=== PATIENT | female | born 1930 | race African-American/Black ===

== ENCOUNTER 2016-06-02 13:28 | Inpatient (IN) ==
[2016-06-02 14:05] LABS: BASOPHILS % (AUTO) 0.7 % (0.0-3.0); EOSINOPHILS # (AUTO) 0.2 K/ul (0.0-0.7); EOSINOPHILS % (AUTO) 3.6 % (0.0-7.0); HEMATOCRIT 36.8 % (37.0-47.0); HEMOGLOBIN 12.2 g/dl (12.0-16.0); LYMPHOCYTES # (AUTO) 1.1 K/uL (0.60-3.4); LYMPHOCYTES % (AUTO) 25.4 (10.0-50.0); MEAN CORPUSCULAR HEMOGLOBIN 29.2 pg (27.0-31.0); MEAN CORPUSCULAR HGB CONC 33.2 (31.8-35.4); MONOCYTES # (AUTO) 0.3 K/uL (0.4-2.0); MONOCYTES % (AUTO) 6.9 (0-10); NEUTROPHILS # (AUTO) 2.7 K/ul (2.0-6.9); NEUTROPHILS % (AUTO) 63.4; PLATELET COUNT 258 10^3/uL (140-440); RED BLOOD COUNT 4.18 10^6/ul (4.20-5.40); WHITE BLOOD COUNT 4.22 K/ul (4.6-10.2)
--- NOTE | 2016-06-02 14:35 | CT ---
EXAM: CT head without contrast HISTORY: Right-sided weakness and dysarthria COMPARISON: CT soft tissue neck 06/13/2014 TECHNIQUE: Serial axial images of the brain were obtained from the skull base to the vertex without IV contrast. FINDINGS: The ventricles, cisterns and sulci demonstrate moderate generalized volume loss. The gra y-white matter junction is maintained. There is scattered low attenuation throughout the periventri cular white matter. No midline shift or mass is identified. There is no abnormal intra or extra-ax ial fluid collection. The paranasal sinuses and mastoid air cells are clear. There are calcificatio ns of the carotid siphons. The osseous calvarium is intact. IMPRESSION: 1. No acute intracranial hemorrhage with no focal loss of the [place]-white matter junction. If furth er evaluation is clinically indicated, MRI brain may be obtained. 2. Scattered low attenuation throughout the periventricular white matter consistent with microangio michael with a focal area of low attenuation in the left basal ganglia seen on prior CT soft tissue ne ck consistent with the chronic lacunar infarct.
[2016-06-02 14:41] LABS: ALBUMIN 3.9 g/dL (3.4-5.0); ALBUMIN/GLOBULIN RATIO 1.18; ANION GAP 14.7; BILIRUBIN,TOTAL 0.87 mg/dL (0.00-1.20); BUN/CREATININE RATIO 13.76; CALCIUM 9.3 mg/dL (8.2-10.2); CREATININE 1.09 mg/dL (0.60-1.30); POTASSIUM 3.7 mmol/L (3.5-5.10); TOTAL PROTEIN 7.2 g/dL (5.8-8.1); TROPONIN I 0.013 ng/ml (0.0000-0.4000)
[2016-06-02 14:43] LABS: CREATINE KINASE MB 0.8 ng/ml (0.0-3.6)
[2016-06-02] MEDS ORDERED: ASPIRIN CHEWABLE PO STA (14:47)
--- NOTE | 2016-06-02 14:50 | ED.PDOC ---
General ED Provider: Dr. GERMÁN ESTRADA-ER Chief Complaint: Weakness Stated Complaint: my speech isnt right and i was weak on my right side Time Seen by Physician: 14:48 Mode of Arrival: Stretcher Information Source: Patient, EMT Exam Limitations: No limitations Primary Care Provider: JAYMIE PITTS Nursing and Triage Documentation Reviewed and Agree: Yes Neurological Complaint Exam - Weakness Complaint/Exam Last Known Well: 24hrs Onset: Gradual Duration: 24hrs Symptoms Are: Resolved Timing: Intermittent Episodes Lasting: Hours Initial Severity: Mild Current Severity: Mild Character: Reports: Weak Aggravating: Reports: None Alleviating: Reports: None Associated Signs and Symptoms: Denies: Nausea, Vomiting, Diaphoresis, Tinnitus, Chest pain, Short of air, Palpitations, Unsteady gait, GI blood loss, Visual changes, Decreased oral intake, Change in medication, Change in diet, OTC meds, Loss of balance Cardiac Risk Factors: Reports: Hypertension CVA Risk Factors: Reports: Diabetes, Hypertension Related Surgical History: Reports: None JVD Present: No Carotid Bruit Present: No Glascow Coma Scale (see protocol): 15 Nystagmus Present: No Gag Reflex Present: Yes Meningeal Signs Positive: No Focal Weakness: Present: RUE, RLE Focal Sensory Loss: Present: None Gait: Normal Duisoj-oi-Scyt: Normal Findings Romberg Test Positive: No Babinski Sign: Negative Right, Negative Left Heel to Toe Normal: Yes Tennille-Hallpike Test Positive: Yes Differential Diagnoses: Other Quality Indicator For Non-Traumatic Chest Pain/Syncope: EKG Performed Review of Systems - Review Of Systems Constitutional: Reports: No symptoms Eyes: Reports: No symptoms Ears, Nose, Mouth, Throat: Reports: No symptoms Respiratory: Reports: No symptoms Cardiac: Reports: No symptoms GI: Reports: No symptoms : Reports: No symptoms Musculoskeletal: Reports: No symptoms Skin: Reports: No symptoms Neurological: Reports: Other Endocrine: Reports: No symptoms Hematologic/Lymphatic: Reports: No symptoms All Other Systems: Reviewed and Negative Past Medical History - Past Medical History Endocrine: Reports: DM 2 Cardiovascular: Reports: Hypertension Respiratory: Reports: None Hematological: Reports: None Gastrointestinal: Reports: None Genitourinary: Reports: None Neuro/Psych: Reports: None Musculoskeletal: Reports: None Cancer: Reports: None Last Menstrual Period: menopause - Surgical History General Surgical History: Reports: Unknown - Family History Family History: Reports: Unknown - Social History Smoking Status: Former smoker Hx Substance Use: No Alcohol Screening: None Lives: With family Physical Exam - Physical Exam Appearance: Well-appearing, No pain distress, Well-nourished Eyes: JASVIR, EOMI, Conjunctiva clear ENT: Ears normal, Nose normal, Oropharynx normal Neck: Supple Respiratory: Airway patent, Breath sounds clear, Breath sounds equal, Respirations nonlabored Cardiovascular: RRR, Pulses normal, No rub, No murmur GI/: Soft, Nontender, No masses, Bowel sounds normal, No Organomegaly Musculoskeletal: Normal strength, ROM intact, No edema, No calf tenderness Skin: Warm, Dry, Normal color Neurological: Alert, Oriented Psychiatric: Affect appropriate Interpretation - Radiology Interpretation Radiology Interpretation By: Radiologist Radiology Results: Negative Exam Interpreted: CT Scan - EKG Interpretation Time of EKG #1: 14:51 Rate: Gm Rhythm: Sinus Ectopy: None [place]: NL ST Segment: Normal Interpretation: nsr Re-Evaluation - Re-Evaluation Time of Re-Evaluation: 14:51 Status: Improved (speech is clear--moves all extremities) Vital Signs Stable: Yes Pain Level: 0 Appearance: NAD Lungs: Clear Skin: Warm and Dry Neuro: Alert and Oriented X3 CV: RRR Physician Notification - Case Discussed Physician Notified: dr pitts Time of Notification: 14:51 Critical Care Note - Critical Care Note Total Time (mins): 0 Course - Course Hematology/Chemistry: 06/02/16 14:00 06/02/16 14:00 Orders, Labs, Meds: Lab Review 06/02/16 14:00 WBC 4.22 L RBC 4.18 L Hgb 12.2 Hct 36.8 L MCV 88.0 MCH 29.2 MCHC 33.2 RDW Coeff of Feliberto 12.9 Plt Count 258 Immature Gran % (Auto) 0.0 Neut % (Auto) 63.4 Lymph % (Auto) 25.4 [place] % (Auto) 6.9 Eos % (Auto) 3.6 Baso % (Auto) 0.7 Immature Gran # (Auto) 0.0 Neut # 2.7 Lymph # 1.1 [place] # 0.3 L Eos # 0.2 Baso # 0.0 D-Dimer 1.37 Sodium 140 Potassium 3.7 Chloride 105 Carbon Dioxide 24 Anion Gap 14.7 BUN 15 Creatinine 1.09 Estimated GFR (MDRD) 58.00 BUN/Creatinine Ratio 13.76 Glucose 141 H Calcium 9.3 Total Bilirubin 0.87 AST 18 ALT 11 L Alkaline Phosphatase 81 Total Creatine Kinase 183 CK-MB (CK-2) 0.8 CK-MB (CK-2) % 0.25376 Troponin I 0.0130 Total Protein 7.2 Albumin 3.9 Globulin 3.3 Albumin/Globulin Ratio 1.18 Orders Category Date Time Status EKG-(ED ONLY) Stat CARDIO 06/02/16 13:37 Completed Retail And Promotions Coordinator [ED SUGAR CANE GROWER APPLIED] .ONCE EMERGENCY 06/02/16 13:38 Active CBC W/ AUTO DIFF Stat LAB 06/02/16 14:00 Completed COMPREHENSIVE METABOLIC PANEL Stat LAB 06/02/16 14:00 Completed CREATINE KINASE Stat LAB 06/02/16 14:00 Completed D-DIMER Stat LAB 06/02/16 14:00 Completed TROPONIN I Stat LAB 06/02/16 14:00 Completed Aspirin [Aspirin Chewable] MEDS 06/02/16 14:47 Stat 324 mg PO ONCE STA CT HEAD W/O CONTRAST Stat RADS 06/02/16 13:38 Completed Medications Generic Name Dose Route Start Last Admin Trade Name Freq PRN Reason Stop Dose Admin Aspirin 324 mg 06/02/16 14:47 Aspirin Chewable PO 06/02/16 14:48 ONCE STA Vital Signs: Temp Pulse Resp BP Pulse Ox 06/02/16 13:28 98.3 F 58 L 20 166/66 H 97 Departure - Departure Time of Disposition: 14:51 Disposition: ADMITTED INPATIENT Discharge Problem: TIA (transient ischemic attack) Qualifiers: Transient cerebral ischemia type: unspecified Qualifier Code: (G45.9) Transient cerebral ischemic attack, unspecified Instructions: Transient Ischemic Attack (ED) Condition: Fair Pt referred to PMD for follow-up: Yes Allergies/Adverse Reactions: Allergies No Known Allergies Allergy (Unverified 06/02/16 13:41) Home Medications: Ambulatory Orders Amlodipine Besylate/Benazepril [Amlodipine-Benazepril 10-40 mg] 1 each PO DAILY 06/02/16 Clonidine HCl 0.1 mg PO DAILY 06/02/16 Labetalol HCl [Trandate] 100 mg PO BID 06/02/16 Omeprazole [Prilosec] 20 mg PO BIDAC 06/02/16 Disposition Discussed With: Patient
[2016-06-02 16:53] VITALS: BMI 31.9
[2016-06-02] MEDS: PRILOSEC PO SCH (18:07)
[2016-06-02] MEDS: LIPITOR PO SCH (20:29)
[2016-06-02] MEDS: TRANDATE PO SCH (21:36)
[2016-06-03 04:39] LABS: BASOPHILS # (AUTO) 0.1 K/uL (0-0.2); BASOPHILS % (AUTO) 1.2 % (0.0-3.0); EOSINOPHILS # (AUTO) 0.2 K/ul (0.0-0.7); EOSINOPHILS % (AUTO) 3.5 % (0.0-7.0); HEMATOCRIT 36.8 % (37.0-47.0); HEMOGLOBIN 11.8 g/dl (12.0-16.0); IMMATURE GRANULOCYTE % (AUTO) 0.2 % (0.0-5.0); LYMPHOCYTES # (AUTO) 1.4 K/uL (0.60-3.4); LYMPHOCYTES % (AUTO) 33.6 (10.0-50.0); MEAN CORPUSCULAR HEMOGLOBIN 28.7 pg (27.0-31.0); MEAN CORPUSCULAR HGB CONC 32.1 (31.8-35.4); MEAN CORPUSCULAR VOLUME 89.5 fl (81.0-99.0); MONOCYTES # (AUTO) 0.4 K/uL (0.4-2.0); MONOCYTES % (AUTO) 8.7 (0-10); NEUTROPHILS # (AUTO) 2.3 K/ul (2.0-6.9); NEUTROPHILS % (AUTO) 52.8; PLATELET COUNT 248 10^3/uL (140-440); RED BLOOD COUNT 4.11 10^6/ul (4.20-5.40); WHITE BLOOD COUNT 4.26 K/ul (4.6-10.2)
[2016-06-03 05:05] LABS: ALBUMIN 3.7 g/dL (3.4-5.0); ALBUMIN/GLOBULIN RATIO 1.19; ANION GAP 12.7; BILIRUBIN,TOTAL 0.62 mg/dL (0.00-1.20); BUN/CREATININE RATIO 14.95; CALCIUM 9.1 mg/dL (8.2-10.2); CREATININE 1.07 mg/dL (0.60-1.30); POTASSIUM 3.7 mmol/L (3.5-5.10); TOTAL PROTEIN 6.8 g/dL (5.8-8.1)
[2016-06-03] MEDS: PRILOSEC PO SCH ×2 (05:47→17:08)
[2016-06-03] MEDS: CATAPRES PO SCH (08:33)
[2016-06-03] MEDS: ASPIRIN CHEWABLE PO SCH (08:33)
[2016-06-03] MEDS: LOVENOX SUBCUT SCH (08:33)
[2016-06-03] MEDS: TRANDATE PO SCH ×2 (08:33→20:35)
[2016-06-03] MEDS ORDERED: LOTENSIN PO SCH (09:00)
[2016-06-03] MEDS: HYDROCHLOROTHIAZIDE PO SCH (09:00)
[2016-06-03] MEDS ORDERED: NORVASC PO SCH (09:00)
[2016-06-03] MEDS: COZAAR PO SCH (09:01)
--- NOTE | 2016-06-03 11:44 | HP ---
DATE OF SERVICE: 06/02/16 REASON FOR HOSPITALIZATION: Weakness, speech difficulty. HISTORY OF PRESENT ILLNESS: This 85 year old BLACK/ F was hospitalized 06/02/16. The patient is admitted through ER with problems speaking and weakness involving the right side, 24 hours prior to hospitalization. The patient has no headache and no visual problems. By the time she came to the Emergency Department, her speech was somewhat unclear but had no other neurological deficits. REVIEW OF SYSTEMS: CONSTITUTIONAL: No night sweats. No fatigue, malaise, lethargy. No fever or chills. HEENT: Eyes: No visual changes. No eye pain. No eye discharge. ENT: No runny nose. No epistaxis. No sinus pain. No sore throat. No odynophagia. No ear pain. No congestion. RESPIRATORY: No cough, no congestion. No hemoptysis. CARDIOVASCULAR: No angina symptoms. No CHF symptoms. No atypical chest pain for CAD. No palpitations. No shortness of breath. GASTROINTESTINAL: No abdominal pain. No nausea or vomiting. No diarrhea or constipation. No hematemesis. No hematochezia. GENITOURINARY: No urgency. No frequency. No dysuria. No hematuria. No obstructive symptoms. No discharge. No pain. No significant abnormal bleeding. MUSCULOSKELETAL: No musculoskeletal pain. No joint swelling. No arthritis. NEUROLOGICAL: Speech is somewhat unclear but able to understand clearly. No headache. No neck pain. No syncope. No seizures. No dizziness. PSYCHIATRIC: Not anxious. No depression. No suicidal thoughts. No homicidal thoughts. SKIN: No rash. No lesions. No wounds. ENDOCRINE: No unexplained weight loss. No weight gain. HEMATOLOGIC/LYMPHATIC: No anemia. No purpura. No petechiae. No prolonged or excessive bleeding. No palpable lymph nodes. PERSONAL/FAMILY/SOCIAL HISTORY: . Retired. Former smoker. Occasional alcohol use. Family History: Breast cancer, hypertension. PAST MEDICAL: 1. Hypertension 2. Anemia 3. Dyslipidemia PAST SURGICAL HISTORY: 1. Cataract, bilaterally 2. Hysterectomy 3. Right rotator cuff replaced 4. Left hip replacement MEDICATIONS: (Home) 1. Omeprazole (Prilosec) 20 mg p.o. b.i.d. a.c. 2. Labetalol (Trandate) 100 mg p.o. b.i.d. 3. Amlodipine Besylate/Benazepril one each p.o. daily 4. Clonidine 0.1 mg p.o. daily ALLERGIES: NKDA PHYSICAL EXAMINATION: GENERAL: The patient is lying in bed in no distress. VITAL SIGNS: Temperature 97.6 F, Pulse 65, Respiratory Rate 20, BP 156/74, Pulse Ox 94%. HEENT: Head normocephalic, atraumatic. Eyes: Extraocular muscles are intact. Pupils are equal, round and reactive to light and accommodation. Ears: No lesions. Nose appeared normal. Throat: No exudate or erythema. NECK: Supple. No JVD, no carotid bruit. No lymphadenopathy or thyromegaly. LUNGS: Clear to auscultation. Percussion note normal. Chest symmetrical. HEART: S1, S2, no S3. No murmurs. No cyanosis or clubbing. No ascites. Pulses: Dorsalis pedis and posterior tibial pulses +1 to +2 both sides. ABDOMEN: Soft. Nontender. Bowel sounds active. No CVA tenderness. No mass felt. EXTREMITIES: No edema. Full range of motion of all extremities, equal. NEUROLOGIC: Awake alert, oriented to time, place and person. Speech is not as clear but able to understand clearly. Cranial nerves II through XII are grossly intact. No headache, no double vision or headache. SKIN: Not dry. Intact. Turgor - normal. LYMPHATIC: No palpable lymph nodes/no lymphedema. MUSCULOSKELETAL: Normal joints with no swelling. Muscle tone is normal. LAB REVIEW: 06/03/16 04:38: WBC 4.26 L, RBC 4.11 L, Hgb 11.8 L, Hct 36.8 L, MCV 89.5, MCH 28.7, MCHC 32.1, RDW Coeff of Feliberto 12.9, Plt Count 248, Immature Gran % (Auto) 0.2, Neut % (Auto) 52.8, Lymph % (Auto) 33.6, [place] % (Auto) 8.7, Eos % (Auto) 3.5, Baso % (Auto) 1.2, Immature Gran # (Auto) 0.0, Neut # 2.3, Lymph # 1.4, [place] # 0.4, Eos # 0.2, Baso # 0.1, Sodium 142, Potassium 3.7, Chloride 108 H, Carbon Dioxide 25, Anion Gap 12.7, BUN 16, Creatinine 1.07, Estimated GFR (MDRD ) 59.00, BUN/Creatinine Ratio 14.95, Glucose 123 H, Calcium 9.1, Total Bilirubin 0.62, AST 18, ALT 7 L, Alkaline Phosphatase 75, Total Protein 6.8, Albumin 3.7, Globulin 3.1, Albumin/Globulin Ratio 1.19 ASSESSMENT: 1. Dysarthria/TIA vs CVA, questionable right hemiparesis at home. 2. Hypertension. 3. BMI more than 30. 4. Anemia. 5. Dyslipidemia PLAN: 1. MRI of the brain with contrast. 2. Telemetry. 3. Carotid scan. 4. Systolic blood pressure needs to be brought down to 150 or under - will start Hyzaar. 5. Discontinue Lotrel. 6. Amlodipine 10 mg to be given at night. 7. Continue Trandate and Clonidine. 8. Continue Aspirin and Lovenox. TIME SPENT: More than 70 minutes. CONDITION: Stable SCRIBED BY: KAVON CRISTINA Registered Nurse Cardiac Telemetry scribed while in presence of service performed by Dr. JAYMIE ZEPEDA on 06/03/16 (0800) [facility]
--- NOTE | 2016-06-03 12:01 | MRI ---
EXAM: MRI brain without IV contrast. DATE: 03 June 2016. HISTORY: TIA. TECHNIQUE: Sagittal T1W, axial T2W, axial FLAIR, axial T1W, axial DWI, and coronal T2W GRE sequence s of the brain were obtained using 1.2 Amina magnet. No IV contrast. COMPARISON: CT head 02 June 2016. FINDINGS: The lateral ventricles, temporal tips, Sylvian fissures, and many cerebral sulci are enla rged due to involutional change. No midline shift, herniation or loculated extra-axial fluid collec tion is apparent. No acute hemorrhage or neoplasm is identified. Narrow/small confluent rim of T2W/ FLAIR hyperintensity is observed in the white matter abutting each lateral ventricle. Small number of 2-15 mm, T2W/FLAIR bright foci are scattered within the nova radiata, centrum semiovale, and landrum bcortical white matter bilaterally. Mildly prominent Virchow-Quoc spaces are seen in both basal ga nglia and in the subcortical white matter both cerebral hemispheres. Tiny (1.5 mm) bilateral thalam ic T2W bright, T1W dark foci are noted medially. Right anteroinferior cerebellum 5 mm DWI bright fo cus and right brachium pontis 4 mm DWI bright focus are observed. No other acute infarcts are demon strated. The [place] - white matter differentiation is normal. The 7th/8th cranial nerve complexes, c erebellopontine angles, and visible cervical spinal cord are normal. There is no cerebellar tonsill ar ectopia. The pituitary gland is normal in size and signal. Corpus callosum is normal in size an d configuration. Left vertebral artery is dominant and tortuous, and flattens the anterolateral mar gin of the left pontomedullary junction; however, there is no definitive signal abnormality within t he brainstem at this level. Basilar artery is approximately 6 mm diameter (mildly prominent) through out most of its course. Left cavernous ICA C1 segment / supraclinoid ICA measures approximately 7.2 mm diameter. There are significant calcifications in this region on the prior CT scan. Flow voids are present in the major intracranial arteries and in the dural venous sinuses. No aneurysm, AVM or dural venous sinus thrombosis is apparent. Change in the lens of each eye suggests prior cataract surgery. No other orbit abnormality is identified. The mastoid air cells are unremarkable. There is no acute sinusitis. No neck mass or lymphadenopathy is detected. No calvarial neoplasm or acute fracture is evident. IMPRESSIONS: 1. Acute, non-hemorrhagic right cerebellum and right brachium pontis infarcts. No midline shift or herniation. 2. No acute hemorrhage, neoplasm or hydrocephalus. 3. Mild supratentorial small vessel disease. 4. Possible old, tiny thalamic infarcts. 5. Mild cerebral and cerebellar atrophy. 6. 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 7. 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 Critical result: Report called to [facility] nurse (Ayala) at 1150 hrs, 03 June 2016.
--- NOTE | 2016-06-03 12:49 | US ---
EXAM: ULTRASOUND CAROTID DUPLEX, BILATERAL HISTORY: TIA FINDINGS: Merida-scale ultrasound, color Doppler and spectral analysis was performed. Velocities are in meters per second. By merida scale and color Doppler imaging, there were regions of heterogeneous plaque formation ident ified within the carotid bulbs and internal carotid arteries. These regions of plaque appeared to r emain less than 50% vessel diameter. RIGHT: External carotid artery peak systolic velocity: 0.7 Common carotid artery peak systolic velocity/end diastolic velocity: 0.6/0.1 Internal carotid artery peak systolic velocity: 0.5 ICA/CCA peak systolic velocity ratio: 0.8 ICA end diastolic velocity: 0.1 LEFT: External carotid artery peak systolic velocity: 0.5 Common carotid artery peak systolic velocity/end diastolic velocity: 0.4/0.0 Internal carotid artery peak systolic velocity: 0.7 ICA/CCA peak systolic velocity ratio: 1.8 ICA end diastolic velocity: 0.2 The right vertebral artery was antegrade. The left vertebral artery was not seen. IMPRESSION: 1. By merida scale and color Doppler imaging, there were regions of heterogeneous plaque formation id entified within the carotid bulbs and internal carotid arteries. These regions of plaque appeared t o remain less than 50% vessel diameter. 2. Internal carotid artery peak systolic velocities and ICA/CCA peak systolic velocity ratios indic ate no hemodynamically significant stenosis bilaterally. 3. Left vertebral artery was not seen. This may be secondary to technical difficulty, small calibe r of the vessel or occlusion. Right vertebral artery was normally antegrade.
--- NOTE | 2016-06-03 13:58 | PN ---
DATE OF SERVICE: 06/02/16 ADMITTING NOTE SUBJECTIVE: The patient is a 85 year old white female was brought to the emergency room with symptoms of having stroke of nearly 20 to 24 hours duration. The patient had difficulty speaking, some difficulty swallowing according to the patient. She was moving all her extremity by the time she came to the emergency room she was feeling better and was moving all her extremities with no obvious neurological deficit. I discussed with the ER physician and the patient was not candidate for TPA. The patient was oriented to time, place and person. Cardiovascular status and Neurological status stable. REVIEW OF SYSTEMS: CONSTITUTIONAL: No night sweats. No fatigue, malaise, lethargy. No fever or chills. HEENT: Eyes: No visual changes. No eye pain. No eye discharge. ENT: No runny nose. No epistaxis. No sinus pain. No sore throat. No odynophagia. No congestion. RESPIRATORY: No cough, no congestion. No hemoptysis. CARDIOVASCULAR: No angina symptoms. No CHF symptoms. No atypical chest pain for CAD. No palpitations. No shortness of breath. GASTROINTESTINAL: No abdominal pain. No nausea or vomiting. No diarrhea or constipation. No hematemesis. No hematochezia. GENITOURINARY: No urgency. No frequency. No dysuria. No hematuria. No obstructive symptoms. No discharge. No pain. No significant abnormal bleeding. MUSCULOSKELETAL: No musculoskeletal pain; no joint swelling. NEUROLOGICAL: No headache. No neck pain. No syncope. No seizures. No dizziness. PSYCHIATRIC: Not anxious. No depression. No suicidal thoughts. No homicidal thoughts. SKIN: No rash. No lesions. No wounds. ENDOCRINE: No unexplained weight loss. No weight gain. HEMATOLOGIC/LYMPHATIC: No anemia. No purpura. No petechiae. No prolonged or excessive bleeding. No palpable lymph nodes. PHYSICAL EXAMINATION: GENERAL: CT scan of the head unremarkable. I talked to the nurse and according to her she was eating normally with no nausea, no vomiting, no double vision. No vision problems. She was talking normally. Earlier she was having some problems with the thoughts and still had some problem expressing herself with some dysarthria even on the floor. VITAL SIGNS: Temperature 98.3, pulse 58, respiratory 20, blood pressure 166/66 and pulse ox 97%. HEENT: Head normocephalic, atraumatic. Eyes: Extraocular muscles are intact. Pupils are equal, round and reactive to light and accommodation. Ears: No lesions. Nose appeared normal. Throat: No exudate or erythema. NECK: Supple. No JVD, no carotid bruit. No lymphadenopathy or thyromegaly. LUNGS: Clear to auscultation. Percussion note normal. Chest symmetrical. HEART: S1, S2, no S3. No murmurs. No cyanosis or clubbing. No ascites. Pulses: Dorsalis pedis and posterior tibial pulses +1 to +2 both sides. ABDOMEN: Soft. Nontender. Bowel sounds active. No CVA tenderness. No mass felt. EXTREMITIES: No edema. Full range of motion of all extremities, equal. NEUROLOGIC: No focal deficit. Cranial nerves II through XII are grossly intact. No headache, no double vision or headache. SKIN: Not dry. Intact. Turgor - normal. LYMPHATIC: No palpable lymph nodes/no lymphedema. MUSCULOSKELETAL: Normal joints with no swelling. Muscle tone is normal. ASSESSMENT: 1. TIA versus CVA 2. Hypertension 3. Dyslipidemia PLAN: 1. Will do MRI and Carotid scan 2. Continue Telemetry monitoring 3. Will do echocardiogram to evaluate LV function thrombus and thrombi 4. Telemetry to rule out any cardiac arrhythmias in the form of atrial fibrillation. CONDITION: Stable TIME SPENT: More than 30 minutes. Plan and coordination of the patient's care discussed in the presence of nurse. PABLITO
--- NOTE | 2016-06-03 15:46 | RS.PDEVAL ---
Subjective Number of treatment sessions: 1 Date of Evaluation: 06/03/16 Date of Onset/Injury/Change in Status: 06/02/16 Treatment Diagnosis: TIA Prior Level of Function.....Patient was independent with: Caregiving (five days a week, for 2.5-4 hours.) Current Level of Function: Pt initially 80% intelligible to listener, however fatigues with prolonged conversation reducing to 50-60% intellgibilit. Pt demonstrates functional self-awareness of speech errors and utilizes compensatory strategies, but still requires 50% verbal cues to use strategies consistently. Current Subjective/complaints:: Pt reported tongue feels heavy and moves slower when talking and swallowing. Pt also reported ringing in right ear, but symptom has improved. Medical History Comments:: HTN, DM, Anemia, TIA, dyslipidemia Hx Home Medications: Pt administered medications independently at home. Refer to medications for complete current list. Oral-Motor Evaluation - Structure Edentulous: Yes Comments:: Pt has dentures at home. Does not regularly wear dentures. - Labial Function Lip spread /i/: + Lip symmetry at rest: + Lip round /u/: + Lip smacking: + (weak) - Lingual Function Protrusion: + (discoordinated initially, regained control.) Lick Lips: + Lateralization to buccal cavity: + (Demonstrated with both sides. Left weaker with less control.) Lateralization to corners: + Elevation of back: - (difficulty with approximation) Elevation of tip: + Retraction: + - Velar Function Prolonged /a/: symmetry during evaluation: + - Reflex Swallow Reflex: + Comments:: Pt reported swallow response was slower. 1 second delay observed with dry swallow. Cognition/Communication - Orientation Orientation: PACE ANALYST, Day, Date, Year, Place Follows one-step directions: +, with cues Follows two-step directions: +, with cues - Expressive language Expressive language: uses phrases (Pt demonstrated 2x phonemic paraphasia, 2x word finding deficit with naming.) - Short-term memory Can patient retell techniques?: Yes - Hearing acuity Hearing Acuity Right: WFL Hearing Acuity Left: WFL Wears hearing aid(s): No AMRs - Velar Rhythm: Regular Rate: Slow Accuracy: Imprecise (Middle and final postion of sound missed on 2-3 syllable words.) - Lingua-Alveolar Rhythm: Regular Rate: Normal Accuracy: Imprecise (sh/ch s-blends distorted or deleted in all positions.) - Bilabial Rhythm: Regular Rate: Normal Accuracy: Precise SMRs - SMRs Rhythm: Irregular Rate: Slow Accuracy: Imprecise (Pt demonstrated over-enunciating with 2-4 syllabic words read alone.) Observations - Observations Characteristics Observed: Breathy (Voice became breathy during evaluation due to SOB.) Reading and/or Conversation - Characteristics Observed Phonation: Audible inspiration Articulation: Imprecise consonants Articulation Specific Errors: s,t, s-blends, sh, ch, k/g Prosody: Slow rate Contrastive Stress - "Steve likes apples." To indicate stress, patient uses:: Increased pitch, Pauses Comments Patient-initiated compensatory strategies: Pt demonstrated self-awareness of speech errors and utilized over-enunciation and repetition to correct errors. Functional Reporting G Codes: Motor speech disorders Severity Impairment Rationale: Distortions, deletion, and slurred 2-4 syllabic words, 5-6 word length sentences, and fatigue with prolonged conversation. Short Term Goals Problem: motor speech Goal #1: Pt to complete lingual strength exercises with 90% accuracy. Goal to be met by: 06/10/16 Problem: Motor speech Goal #2: Pt exaggerates multi-syllabic consonant blends with 80% acc Goal to be met by: 06/10/16 Problem: Motor speech Goal #3: Pt exaggerates multi-syllabic words in sent. with 80% acc Goal to be met by: 06/10/16 Problem: Motor speech Goal #4: Pt demonstrates strategies during conversation with 80% acc Goal to be met by: 06/10/16 Test Deck Supervisor Goals Problem: Motor speech Goal #1: Pt increases speech intelligibilty to 90% acc Goal to be met by: 06/14/16 Problem: Motor speech Goal #2: Pt increases lingual strength and coordination to 80% Goal to be met by: 06/14/16 Plan Duration of Treatment: 2 Weeks Frequency of Treatment: 3-4x a week Anticipated Discharge Destination: Home
[2016-06-03] MEDS: LIPITOR PO SCH (20:35)
[2016-06-04 04:53] LABS: BASOPHILS # (AUTO) 0.1 K/uL (0-0.2); BASOPHILS % (AUTO) 1.2 % (0.0-3.0); EOSINOPHILS # (AUTO) 0.3 K/ul (0.0-0.7); EOSINOPHILS % (AUTO) 5.9 % (0.0-7.0); HEMATOCRIT 36.5 % (37.0-47.0); HEMOGLOBIN 11.7 g/dl (12.0-16.0); IMMATURE GRANULOCYTE % (AUTO) 0.2 % (0.0-5.0); LYMPHOCYTES # (AUTO) 1.6 K/uL (0.60-3.4); LYMPHOCYTES % (AUTO) 37.3 (10.0-50.0); MEAN CORPUSCULAR HEMOGLOBIN 28.8 pg (27.0-31.0); MEAN CORPUSCULAR HGB CONC 32.1 (31.8-35.4); MEAN CORPUSCULAR VOLUME 89.9 fl (81.0-99.0); MONOCYTES # (AUTO) 0.4 K/uL (0.4-2.0); MONOCYTES % (AUTO) 9.7 (0-10); NEUTROPHILS # (AUTO) 1.9 K/ul (2.0-6.9); NEUTROPHILS % (AUTO) 45.7; PLATELET COUNT 238 10^3/uL (140-440); RED BLOOD COUNT 4.06 10^6/ul (4.20-5.40); WHITE BLOOD COUNT 4.21 K/ul (4.6-10.2)
[2016-06-04 05:13] LABS: ALBUMIN 3.6 g/dL (3.4-5.0); ALBUMIN/GLOBULIN RATIO 1.24; ANION GAP 14.7; BILIRUBIN,TOTAL 0.81 mg/dL (0.00-1.20); BUN/CREATININE RATIO 12.82; CALCIUM 9.1 mg/dL (8.2-10.2); CREATININE 1.17 mg/dL (0.60-1.30); POTASSIUM 3.7 mmol/L (3.5-5.10); TOTAL PROTEIN 6.5 g/dL (5.8-8.1)
[2016-06-04] MEDS: PRILOSEC PO SCH ×2 (05:44→16:47)
[2016-06-04] MEDS: TRANDATE PO SCH ×2 (09:04→20:14)
[2016-06-04] MEDS: NORVASC PO SCH (09:04)
[2016-06-04] MEDS: ASPIRIN CHEWABLE PO SCH (09:05)
[2016-06-04] MEDS: LOVENOX SUBCUT SCH (09:05)
[2016-06-04] MEDS: CATAPRES PO SCH (09:05)
[2016-06-04] MEDS: HYDROCHLOROTHIAZIDE PO SCH (09:06)
[2016-06-04] MEDS: COZAAR PO SCH (09:07)
--- NOTE | 2016-06-04 10:56 | RS.DYSARTX ---
Dysarthria Treatment Note Date of Note: 06/04/16 Visit #: 2 Time of Treatment: 09:05 Subjective: Pt just finished a.m. meal and medications were administerd prior to ST treatment. Pt reported no fatigue with meal (90% consumed) and was ready to complete ST. Pt reported her speech had improved this date, and feels it will get better every day. MACHINE ROOM OPERATOR noted pt with minimal difference in speech intelligibility. Pt was demonstrating word enunciation strategy with speech errors. Total treatment time: 35 - Short Term Goals Goal #1: Pt to complete lingual strength exercises with 90% accuracy. Activity/Accuracy: Pt completed five repetitions of lingual resistance exercises. Pt resisted with lingual tip for five seconds, with 75% accuracy, given moderate cues. Pt completed A-P over ten repetitions with moderate cues and 50% accuracy. Goal #2: Pt exaggerates multi-syllabic consonant blends with 80% acc Activity/Accuracy: Pt completed four sets of reading aloud multi-syllabic words given a model. Pt completed five reps of each set with 80% accuracy. Pt demonstrated technique and increased self-awareness of errors. MACHINE ROOM OPERATOR cued pt to correct errors 30% of trials. Goal #3: Pt exaggerates multi-syllabic words in sent. with 80% acc Activity/Accuracy: Pt read aloud ten sentences with 80% accuracy. Pt demonstrated improved self-awareness and required verbal cues 50% of trials for accuracy. Goal #4: Pt demonstrates strategies during conversation with 80% acc Activity/Accuracy: MACHINE ROOM OPERATOR educated pt on two strategies this date. Pt demonstrated use of strategies throughout session with 60% accuracy. With moderate cues, increasing to 75% accuracy. - Medical Unit Secretary Goals Goal #1: Pt increases speech intelligibilty to 90% acc Goal #2: Pt increases lingual strength and coordination to 80% Assessment: MACHINE ROOM OPERATOR assessed pts rate this date. Pt reported rate is slower than habitual rate of speech, which pt is utilizing to decrease speech errors. Prolonged /a/ sustained for 6 seconds this date, with variable pitch. - Units Charged Speech Therapy: 1 - Plan Frequency of Treatment: 3-4x a week. Duration of Treatment: 2 Weeks
--- NOTE | 2016-06-04 11:42 | RS.OTINEVL ---
Subjective - Patient information Date of Evaluation: 06/04/16 Date of Arrival on Unit: 06/02/16 Admitted From:: Emergency Dept Usual Living Arrangement: Alone Living Arrangement Comments: Pt reports her son lives with her occasionally. Pt has a caregiver coming 3 hours a day for cleaning, Dr. Bennett, shopping, helping her with a bath. Home Environment: Apartment Medical History: Hypertension, CVA/TIA, Diabetes Medical History Comments:: dyslipidemia, Right rotator cuff repaired, cataracts , Former smoker, DMII, Anemia, Surgical History Comments:: hysterectomy - Level of function Current Equipment Used at Home: cane, walker Pain Assessment - Pain Pain Score: 0 Interventions - Objective Patient Orientation: Person, Place, Situation Current Interventions: IV's, Telemetry Observation: Pt has left side weakness and impaired coordination of the LUE. Interventions - ROM Right Upper Extremity AROM: WFL's Left Upper Extremity AROM: Slight limitation - Strength Right Upper Extremity Strength: Normal Left Upper Extremity Strength: Mild Weakness - Sensation Right Upper Extremity Sensation: Intact/Normal Left Upper Extremity Sensation: Intact/Normal Coordination - Tests Left Finger Opposition: Mild Deviation Finger to Nose: Mild Deviation Balance - Sitting Balance Static Sitting Balance: Normal Dynamic Sitting Balance: Good - Standing Balance Static Standing Balance: Fair Dynamic Standing Balance: Fair - Comments Balance Assessment Comments: Pt appears to have mild impaired left coordination. ADL Skills - Self Feeding Self Feeding: Set Up Only - Grooming Grooming: Min Assist - Bathing Bathing UE: Independent Bathing LE: Min Assist - Dressing Dressing UE: Independent, CGA Dressing LE: Min Assist - Toilet Management Toileting Management: CGA Functional Mobility - Bed Mobility Rolling R/L: CGA Scooting: CGA Supine to Sit: CGA Sit to Supine: CGA - Transfers Sit to Stand: CGA Stand to Sit: [facility] Stand Pivot Transfers: Min Assist Comments:: Pt has decreased balance with stand pivot. - Ambulation Weight Bearing Status: FWB Assistive Device Used: Rolling Walker Orthotic/Prosthetic Device: No Assistance needed with Ambulation: Min Assist - Safety Awareness Safety Awareness: Fair Additional Treatment Performed - Additional units charged ADL: 12 - Time with patient Total treatment time: 32 Activities Patient Interests:: Watching Television, Visiting/Socializing Patient Education Patient Education: Education of diagnosis, Home Safety, Education of Plan of Care Teaching Recipient: Patient Teaching Methods: Discussion Assessment Problem List:: Decreased level of function, Requires training/education, Decreased safety/Risk of falls, Weakness Rehab Potential: Good Further Therapy Indicated?: Yes Short Term Goals - Goals GOAL 1: Pt to complete stand pivot transfer with CGA with RW. Goal to be met by: 06/11/16 GOAL 2: Pt to tolerate 15 minutes of therapeutic Activity for safety of ADLS. Goal to be met by: 06/11/16 GOAL 3: Pt to increase LUE strength to 4/5. Goal to be met by: 06/11/16 Milk Drying Machine Operator Goals GOAL 1: Pt to increase functional mobility to be Modified Independent. Goal to be met by: 06/18/16 GOAL 2: Pt to tolerate 20 minutes of therapeutic activity to increase safety of ADL Goal to be met by: 06/18/16 GOAL 3: Pt to increase LUE strength to 4+/5. Goal to be met by: 06/18/16 Plan Plan of Care: Therapeutic EX, Neuromuscular Re-Educ, Therapeutic Activity, Self- Care/Home Management Frequency of Treatment: 1-2 X day, as tolerated Duration of Treatment: 2 Weeks Anticipated Discharge Destination: Home
--- NOTE | 2016-06-04 12:55 | RS.PTINEVL ---
Subjective - Patient information Date of Evaluation: 06/04/16 Date of Arrival on Unit: 06/02/16 Admitted From:: Emergency Dept Usual Living Arrangement: Alone Living Arrangement Comments: Pt reports her son lives with her occasionally. Pt has a caregiver coming 3 hours a day for cleaning, Dr. Bennett, shopping, helping her with a bath. Home Environment: Apartment Medical History: Hypertension, CVA/TIA, Diabetes Medical History Comments:: dyslipidemia, Right rotator cuff repaired, cataracts , Former smoker, DMII, Anemia, Subjective Information/ Patient Comments:: Patient reports she lives alone and has all kinds of equipment at home except for a BSC. States she feels safer walking with the walker this morning. - Level of function Prior to this admission, the patient could do the following:: Independent Ambulation Abilities prior to this admission: Patient has help in her home daily for a few hours to help with ADL's. Current Level of Function: Partially Dependent Current Equipment Used at Home: cane, walker Interventions - Objective Patient Orientation: Person, Place, Time, Situation Range of Motion - ROM Right Upper Extremity AROM: WFL's Left Upper Extremity AROM: WFL's Right Lower Extremity AROM: WFL's Left Lower Extremity AROM: WFL's Muscle Strength - Muscle Strength Comments:: Bilateral LE strength is at least 3+/5 throughout. Sensation - Sensation Comments: Reports intact sensation to light touch in LE's. Balance - Sitting Balance and Reactions Static Sitting Balance: Good Dynamic Sitting Balance: Good - Standing Balance and Reactions Static Standing Balance: Fair (+) Dynamic Standing Balance: Fair Functional Mobility - Bed Mobility Supine to Sit: CGA, Min Assist, 1 person assist, Verbal Cues, Tactile Cues Sit to Supine: 1 person assist, Verbal Cues, Tactile Cues - Transfers Sit to Stand: Min Assist, 2 person assist, Verbal Cues, Tactile Cues Stand to Sit: Min Assist, 2 person assist, Verbal Cues, Tactile Cues Stand Pivot Transfers: Min Assist, 2 person assist, Verbal Cues, Tactile Cues - Safety Awareness Safety Awareness: Poor Ambulation - Ambulation Weight Bearing Status: FWB Assistive Device Used: Rolling Walker Distance: 150 feet Assistance needed with Ambulation: Min Assist, 2 person assist, Verbal Cues, Tactile Cues Quality of Ambulation: Patient ambulates with more steady gait using RW compared to GENERAL UTILITY MAINTENANCE REPAIRER. Even with the RW she demonstrates unsteadiness and deviation from a straight path. She appears to clear both feet consistently, but foot clearance is minimal. Gait Deviations: Narrow Based gait, Displaced COG, Deviates from path, Lacks step continuity Factors Affecting Ambulation: Decreased Balance, Weakness, Decreased Coordination, Decreased Safety, Limited Endurance Treatment time - Time with patient Total treatment time: 16 (mins) Assessment - Assessment Problem List:: Decreased level of function, Requires training/education, Decreased safety/Risk of falls Rehab Potential: Good Further Therapy Indicated?: Yes Short Term Goals GOAL #1: Sit to stand with CGA of one and verbal cues. Goal to be met by: 06/08/16 GOAL #2: Supine to sit with SBA and verbal cues. Goal to be met by: 06/08/16 GOAL #3: Amb. with RW with good base of support with CGA of one. Goal to be met by: 06/08/16 Detention Goals GOAL #1: Pt independent with all bed mobility. Goal to be met by: 06/11/16 GOAL #2: Pt transfers independently with good safety. Goal to be met by: 06/11/16 GOAL #3: Pt ambulates with RW supvn/I, household distances with good safety. Goal to be met by: 06/11/16 Plan Plan of Care: Therapeutic EX, Neuromuscular Re-Educ, Therapeutic Activity, Self- Care/Home Management Frequency of Treatment: 1-2 X day, as tolerated Duration of Treatment: 1 Week Anticipated Discharge Destination: Home
[2016-06-04] MEDS: LIPITOR PO SCH (20:14)
[2016-06-05 04:48] LABS: BASOPHILS # (AUTO) 0.1 K/uL (0-0.2); BASOPHILS % (AUTO) 1.4 % (0.0-3.0); EOSINOPHILS # (AUTO) 0.3 K/ul (0.0-0.7); HEMATOCRIT 35.2 % (37.0-47.0); HEMOGLOBIN 11.3 g/dl (12.0-16.0); IMMATURE GRANULOCYTE % (AUTO) 0.2 % (0.0-5.0); LYMPHOCYTES # (AUTO) 1.2 K/uL (0.60-3.4); LYMPHOCYTES % (AUTO) 28.3 (10.0-50.0); MEAN CORPUSCULAR HEMOGLOBIN 28.7 pg (27.0-31.0); MEAN CORPUSCULAR HGB CONC 32.1 (31.8-35.4); MEAN CORPUSCULAR VOLUME 89.3 fl (81.0-99.0); MONOCYTES # (AUTO) 0.4 K/uL (0.4-2.0); MONOCYTES % (AUTO) 9.7 (0-10); NEUTROPHILS # (AUTO) 2.3 K/ul (2.0-6.9); NEUTROPHILS % (AUTO) 54.4; PLATELET COUNT 250 10^3/uL (140-440); RED BLOOD COUNT 3.94 10^6/ul (4.20-5.40); WHITE BLOOD COUNT 4.31 K/ul (4.6-10.2)
[2016-06-05 05:24] LABS: ALBUMIN 3.4 g/dL (3.4-5.0); ALBUMIN/GLOBULIN RATIO 1.13; ANION GAP 11.8; BILIRUBIN,TOTAL 0.57 mg/dL (0.00-1.20); BUN/CREATININE RATIO 14.87; CALCIUM 9.2 mg/dL (8.2-10.2); CREATININE 1.21 mg/dL (0.60-1.30); POTASSIUM 3.8 mmol/L (3.5-5.10); TOTAL PROTEIN 6.4 g/dL (5.8-8.1)
[2016-06-05] MEDS: PRILOSEC PO SCH (05:35)
[2016-06-05] MEDS: CATAPRES PO SCH (08:55)
[2016-06-05] MEDS: NORVASC PO SCH (08:55)
[2016-06-05] MEDS: ASPIRIN CHEWABLE PO SCH (08:55)
[2016-06-05] MEDS: COZAAR PO SCH (08:55)
[2016-06-05] MEDS: TRANDATE PO SCH (08:55)
[2016-06-05] MEDS: HYDROCHLOROTHIAZIDE PO SCH (08:55)
[2016-06-05] MEDS: LOVENOX SUBCUT SCH (08:56)
[2016-06-05 10:27] VITALS: BP 152/71; TEMP 98.1
--- NOTE | 2016-06-05 11:06 | RS.DYSARTX ---
Dysarthria Treatment Note Date of Note: 06/05/16 Visit #: 3 Time of Treatment: 10:20 Subjective: Pt reported feeling rested this date, but still felt weak on left side. Pt was lying in bed, but was cooperative for raising HOB to complete ST. REPORTS DEVELOPER noted increased speech intelligibility, as well as pt utilizng over- enunciation and self-correction during informal conversation. Total treatment time: 30 - Short Term Goals Goal #1: Pt to complete lingual strength exercises with 90% accuracy. Activity/Accuracy: Pt completed two trials of ten reps of lingual coordination and strength exercises. REPORTS DEVELOPER utilized tactile cues to increase coordination, however pts lingual tip deviates to right side. Pt completed A-P with 40% accuracy, demonstrating fatigue after 6 reps. Pt completed BOT exercises with 70 % accuracy, requiring a model for accuracy. Goal #2: Pt exaggerates multi-syllabic consonant blends with 80% acc Activity/Accuracy: Pt completed nine trials. Five reps completed each trial utilizing polysyllabic consonant blends and REPORTS DEVELOPER as a model on first repetition. Pt with 77% accuracy, requiring mild-moderate verbal cues for correction of words. Pt with sound deletion in medial position. Goal #3: Pt exaggerates multi-syllabic words in sent. with 80% acc Activity/Accuracy: Pt did not complete goal this date. Goal #4: Pt demonstrates strategies during conversation with 80% acc Activity/Accuracy: REPORTS DEVELOPER assessed pt with informal conversation, by providing a topic. Pt responded and initiated questions utilzing slow rate of speech with 80 % accuracy, over-enunciation with 60% accuracy, self-correction with 50% accuracy. REPORTS DEVELOPER provided drinks of liquids to increase saliva and lingual movement during conversation,which improved pts intelligibility. - Terminal Press Operator Goals Goal #1: Pt increases speech intelligibilty to 90% acc Goal #2: Pt increases lingual strength and coordination to 80% Assessment: REPORTS DEVELOPER assessed pt's self-awareness of errors in structured trials and informal conversation. Pt demonstrated 50% awareness in conversation and 70% awareness in structured trials. - Units Charged Speech Therapy: 2 - Plan Frequency of Treatment: 3-4x a week. Duration of Treatment: 2 Weeks Comments: Pt motivated to complete ST activities. REPORTS DEVELOPER to leave printed documents at next session for pt to complete independently.
--- NOTE | 2016-06-05 11:30 | PN ---
DATE OF SERVICE: 06/04/16 SUBJECTIVE: The patient is a 85 year old black female hospitalized with TIA and CVA. The patient had right cerebellar infarct along with right pontine hemorrhage infarct type of MRI finding. The patient kind of has pinpoint pupil, no fever noted. The patient's speech is somewhat unclear but much better than yesterday. She is feeling better. REVIEW OF SYSTEMS: CONSTITUTIONAL: No night sweats. No fatigue, malaise, lethargy. No fever or chills. Generalized weakness. HEENT: Eyes: No visual changes. No eye pain. No eye discharge. ENT: No runny nose. No epistaxis. No sinus pain. No sore throat. No odynophagia. No congestion. RESPIRATORY: No cough, no congestion. No hemoptysis. CARDIOVASCULAR: No angina symptoms. No CHF symptoms. No atypical chest pain for CAD. No palpitations. No shortness of breath. No PND. No Orthopnea. GASTROINTESTINAL: No abdominal pain. No nausea or vomiting. No diarrhea or constipation. No hematemesis. No hematochezia. GENITOURINARY: No urgency. No frequency. No dysuria. No hematuria. No obstructive symptoms. No discharge. No pain. No significant abnormal bleeding. MUSCULOSKELETAL: No musculoskeletal pain; no joint swelling. NEUROLOGICAL: No headache. No neck pain. No syncope. No seizures. No dizziness. PSYCHIATRIC: Not anxious. No depression. No suicidal thoughts. No homicidal thoughts. SKIN: No rash. No lesions. No wounds. ENDOCRINE: No unexplained weight loss. No weight gain. HEMATOLOGIC/LYMPHATIC: No anemia. No purpura. No petechiae. No prolonged or excessive bleeding. No palpable lymph nodes. PHYSICAL EXAMINATION: GENERAL: The patient is oriented to time, place and person. VITAL SIGNS: Temperature 98.2, pulse 50, respiratory rate 20, blood pressure 155/68 and pulse ox 98%. HEENT: Head normocephalic, atraumatic. Eyes: Extraocular muscles are intact. Pupils are equal, round and reactive to light and accommodation. Ears: No lesions. Nose appeared normal. Throat: No exudate or erythema. NECK: Supple. No JVD, no carotid bruit. No lymphadenopathy or thyromegaly. LUNGS: Clear to auscultation. Percussion note normal. Chest symmetrical. HEART: S1, S2, no S3. No murmurs. No cyanosis or clubbing. No ascites. Pulses: Dorsalis pedis and posterior tibial pulses +1 to +2 both sides. ABDOMEN: Soft. Nontender. Bowel sounds active. No CVA tenderness. No mass felt. EXTREMITIES: No edema. Full range of motion of all extremities, equal. The patient's left sided weakness still present to some extent with muscles four out of five on left upper and lower extremity. We will make patient walk and see how she does. NEUROLOGIC: No focal deficit. Cranial nerves II through XII are grossly intact. No headache, no double vision or headache. SKIN: Not dry. Intact. Turgor - normal. LYMPHATIC: No palpable lymph nodes/no lymphedema. MUSCULOSKELETAL: Normal joints with no swelling. Muscle tone is normal. ASSESSMENT: 1. 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 The patient is otherwise stable PLAN: 1. Will do echocardiogram to elevated LV function and rule out thrombus or thrombi or valvular problems. 2. Avascular status, stable. Carotid scan didn't show any significantly blocked arteries. Cardiac rhythm normal with no evidence of atrial fibrillation. TIME SPENT: More than 30 minutes. Plan and coordination of the patient's care discussed in the presence of nurse. PABLITO
--- NOTE | 2016-06-05 11:39 | PCM.PROG ---
Attending Provider: ATTENDING PROVIDER: Dr. JAYMIE ZEPEDA DATE OF SERVICE: 06/05/16 SUBJECTIVE: This 85 year old BLACK/ F was hospitalized 06/02/16. The patient is hospitalized with TIA/CVA. She has been ambulatory but a little unsteady, uses a walker. At the present time, she is resting in the chair and looks better. She continues to have some weakness in the upper and lower extremities but is much better. REVIEW OF SYSTEMS: CONSTITUTIONAL: Weakness in upper and lower extremities. No night sweats. No fever or chills. HEENT: Eyes: No visual changes. No eye pain. No eye discharge. ENT: No runny nose. No epistaxis. No sinus pain. No odynophagia. No congestion. RESPIRATORY: No cough, no congestion. No hemoptysis. CARDIOVASCULAR: No angina symptoms. No CHF symptoms. No atypical chest pain for CAD. No palpitations. No shortness of breath. GASTROINTESTINAL: No abdominal pain. No nausea or vomiting. No diarrhea or constipation. No hematemesis. No hematochezia. GENITOURINARY: No urgency. No frequency. No dysuria. No hematuria. No obstructive symptoms. No discharge. No pain. No significant abnormal bleeding. MUSCULOSKELETAL: No musculoskeletal pain; no joint swelling. NEUROLOGICAL: Awake, alert, oriented to time, place and person. No headache. No neck pain. No syncope. No seizures. No dizziness. PSYCHIATRIC: Not anxious. No depression. No suicidal thoughts. No homicidal thoughts. SKIN: No rash. No lesions. No wounds. ENDOCRINE: No unexplained weight loss. No weight gain. HEMATOLOGIC/LYMPHATIC: No anemia. No purpura. No petechiae. No prolonged or excessive bleeding. No palpable lymph nodes. PHYSICAL EXAMINATION: GENERAL: The patient is awake, alert and oriented, sitting in the chair in no distress. VITAL SIGNS: Temperature 98.7 F, Pulse 57, Respiratory Rate 21, BP 124/75, Pulse Ox 95% HEENT: Head normocephalic, atraumatic. Eyes: Extraocular muscles are intact. Pupils are equal, round and reactive to light and accommodation. Ears: No lesions. Nose appeared normal. Throat: No exudate or erythema. NECK: Supple. No JVD, no carotid bruit. No lymphadenopathy or thyromegaly. LUNGS: Clear to auscultation. Percussion note normal. Chest symmetrical. HEART: S1, S2, no S3. No murmurs. No cyanosis or clubbing. No ascites. Pulses: Dorsalis pedis and posterior tibial pulses +1 to +2 both sides. ABDOMEN: Soft. Non-tender. Bowel sounds active. No CVA tenderness. No mass felt. EXTREMITIES: No edema. Full range of motion of all extremities, equal. NEUROLOGIC: Mild left-sided weakness. Cranial nerves II through XII are grossly intact. No headache, no double vision or headache. SKIN: Not dry. Intact. Turgor-normal. LYMPHATIC: No palpable lymph nodes/no lymphedema. MUSCULOSKELETAL: Normal joints with no swelling. Muscle tone is normal. LAB REVIEW: 06/05/16 04:47 06/05/16 04:47 06/05/16 04:47: WBC 4.31 L, RBC 3.94 L, Hgb 11.3 L, Hct 35.2 L, MCV 89.3, MCH 28.7, MCHC 32.1, RDW Coeff of Feliberto 12.8, Plt Count 250, Immature Gran % (Auto) 0.2, Neut % (Auto) 54.4, Lymph % (Auto) 28.3, [place] % (Auto) 9.7, Eos % (Auto) 6.0, Baso % (Auto) 1.4, Immature Gran # (Auto) 0.0, Neut # 2.3, Lymph # 1.2, [place] # 0.4, Eos # 0.3, Baso # 0.1, Sodium 140, Potassium 3.8, Chloride 106, Carbon Dioxide 26, Anion Gap 11.8, BUN 18, Creatinine 1.21, Estimated GFR (MDRD ) 51.00, BUN/Creatinine Ratio 14.87, Glucose 131 H, Calcium 9.2, Total Bilirubin 0.57, AST 15, ALT 7 L, Alkaline Phosphatase 69, Total Protein 6.4, Albumin 3.4, Globulin 3.0, Albumin/Globulin Ratio 1.13 ASSESSMENT: 1. 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 Hypertension, controlled 3. Anemia, stable 4. Kidney function is better. PLAN: 1. Admit to swing bed for PT/OT Plan and coordination of the patient's care discussed in the presence of Home Health Aide Caregiver and nurse. CONDITION: Improving. SCRIBED BY: KAVON CRISTINA, Hospital Coordinator scribed while in presence of service performed by Dr. JAYMIE ZEPEDA on 06/05/16 ([id number])
--- NOTE | 2016-06-06 10:18 | ECHO2D ---
Date of Exam: 06/05/16 Ordering Physician: JAYMIE ZEPEDA Reason for Echo: CVA, SYSTOLIC MURMUR, HTN M-Mode Normal Adult Results LV Dimensions Normal Adult Results AoV Opening excursions >1.6 >1.6 LVEDD-base- 3.5-5.8 4.5 Ao root dimensions 2.0-3.7 2.7 LVESD-base- 3.1-4.6 L. Atrium dimensions 1.9-3.8 4.6 Post. Wall thickness 0.8-1.1 1.3 IV septum (thickness) 0.7-1.2 1.3 Post. Wall excursion 0.72-1.3 NORMAL Septal motion NORMAL Systolic motion R. Ventricular cavity 1.5-2.0 NORMAL LVEF 60% 66% Paradoxical septal wall motion NORMAL 2-D : ENLARGED LEFT ATRIAL CAVITY--NORMAL LEFT VENTRICULAR CONTRACTILITY-- NORMAL VALVES--NO EFFUSION, NO THROMBUS M-MODE: MV: NORMAL AV: NORMAL TV: NORMAL PV: CHAMBER SIZE: ENLARGED LEFT ATRIAL CAVITY WALL MOTION: NORMAL PERICARDIUM: NORMAL INTERPRETATION: 1. LEFT VENTRICULAR HYPERTROPHY WITH ENLARGED LEFT ATRIAL CAVITY 2. NORMAL LEFT VENTRICULAR CONTRACTILITY 3. NORMAL VALVES MTDD
--- NOTE | 2016-06-06 10:45 | DS ---
DATE OF SERVICE: 06/05/16 FINAL DIAGNOSIS: 1. Acute CVA, right cerebellar and pontine 2. Tiny Lacunar infarcts, remote history per CT head 05/21 3. Diabetes Mellitus, type 2 4. Hypertension 5. GERD 6. Anemia 7. Dyslipidemia 8. Cataract extractions, bilateral 9. Hysterectomy 10.Right Rotator cuff repair 11.Left hip repair. LAST VITALS: Temperature 98.1. pulse 54, respiratory 20, blood pressure 152/71 and pulse ox 96%. DISCHARGE INSTRUCTIONS: Discharge from acute to be admitted to swing bed. Medications will be continued as in the acute care setting. MEDICATIONS AT DISCHARGE: Norvasc 10mg PO daily Lipitor 10mg PO bedtime Catapres 0.1mg PO daily Lovenox 40,g SUBCUT daily Trandate 100mg PO twice a day Cozaar 100mg PO daily Prilosec 20mg PO twice a day Sodium Chloride IV PRN Sodium Chloride IV Q 8 hours. ALLERGIES: No known allergies NEW PRESCRIPTIONS: Amlodipine Besylate 10mg PO daily ASA 81mg PO daily Lipitor 10mg PO at HS Lovenox 40mg SUBCUT daily Cozaar 100mg PO daily Hydrochlorothiazide 12.5mg PO daily DIET INSTRUCTIONS: As tolerated. ACTIVITY: As tolerated. SMOKING: Non-smoker DISEASE SPECIFIC EDUCATION: CVA Swing bed admission for rehab Medications Activity Nutrition LABS: Hgb 11.3, hct 35, WBC 4,300 normal differential, creatinine 1.3, BUN 18, potassium 3.8 and glucose 131. HOSPITAL COURSE: The patient is an 85 year old white female hospitalized with CVA. The patient had right pontine and cerebellar infarct. The patient has left hemiparesis which she still has some residue of it but she is getting a lot stronger and she is able to walk with help. The patient's speech was somewhat unclear on admission but seems to be cleared up. There was no problems swallowing. The patient needs to be on PT/OT for which she consented for the swing bed. The patient's cardiovascular status is stable and her blood pressure is under control. Her echocardiogram was done today which showed LVH with enlarged LA cavity with normal LV contractility. The patient's condition at the time of discharge is stable. The patient's pupils are somewhat pinpoint. TIME SPENT: More than [address] [facility]
--- NOTE | 2016-06-06 10:47 | PN ---
06/02/16: Level 5 06/03/16: Intermediate 06/04/16: Intermediate 06/05/16: Admit to swing bed Level 5 MTDD
--- NOTE | 2016-06-06 16:30 | CM.DICTOOL ---
ADMISSION: 06/02/16 14:50 DISCHARGE: 06/05/16 DATE OF SERVICE: 06/05/16 FINAL DIAGNOSIS ACUTE CVA, RIGHT CEREBELLAR AND PONTINE TINY LACUNAR INFARCTS, REMOTE HISTORY PER CT HEAD 05/21 DM, TYPE 2 HYPERTENSION GERD ANEMIA DYSLIPIDEMIA CATARACT EXTRACTIONS, BILATERAL HYSTERECTOMY RIGHT ROTATOR CUFF REPAIR LEFT HIP REPAIR LAST VITALS Temp Pulse Resp BP Pulse Ox 98.1 F 54 L 20 152/71 H 96 06/05/16 10:00 06/05/16 10:00 06/05/16 10:00 06/05/16 10:00 06/05/16 10:00 ACTIVE MEDICATIONS Amlodipine Besylate (Norvasc) 10 mg PO DAILY Aspirin 81 mg PO DAILYWM Atorvastatin Calcium (Lipitor) 10 mg PO BEDTIME Clonidine (Catapres) 0.1 mg PO DAILY Enoxaparin Sodium (Lovenox) 40 mg SUBCUT DAILY Hydrochlorothiazide 12.5 mg PO DAILT Labetalol HCL (Trandate) 100 mg PO BID Losartan Potassium (COzaar) 100 mg PO DAILY Omeprazole (Prilosec) 20 mg PO BIDAC Sodium Chloride (saline flush) IV PRN PRN Sodium Chloride (saline flush) IV Q8HR ALLERGIES No Known Allergies Allergy (Unverified 06/02/16 13:41) NEW PRESCRIPTIONS: AMLODIPINE BESYLATE (NORVASC) 10 MG PO DAILY ASA 81 MG PO DAILY LIPITOR 10 MG PO AT HS LOVENOX 40 MG SUBCUT DAILY COZAAR 100 MG PO DAILY HYDROCLOROTHYAZIDE 12.5 MG PO DAILY SMOKING: NONSMOKER DISEASE SPECIFIC EDUCATION: CVA SWING BED ADMISSION FOR REHAB MEDICATIONS ACTIVITY NUTRITION LAB REVIEW: 06/05/16 04:47 06/05/16 04:47 PLAN: DISCHARGE FROM ACUTE TO BE ADMITTED TO SWING BED GOALS FOR SWING BED ADMISSION ARE FOR THE PATIENT TO RECEIVE PT/OT FOR ASSISTANCE WITH FUNCTIONAL DECLINE SECONDARY TO HER ACUTE CVA. SPEECH WILL ALSO BE REQUESTED TO CONTINUE WORKING WITH HER DUE TO HER SLURRED SPEECH. MEDICATIONS WILL BE CONTINUED IN THE ACUTE CARE SETTING SUMMARY: THE PATIENT IS ALERT AND ORIENTED X3. HER SPEECH BECOMES MILDLY SLURRED AFTER SHORT CONVERSATION. SHE HAS MILD WEAKNESS ON THE LEFT, BOTH UPPER AND LOWER EXTREMITIES. SHE SAYS SHE FEELS A HEAVINESS IN ALL HER MUSCLES. HER THOUGHT PROCESS IS INTACT. SHE DOES NOT HAVE ANY DIFFICULTY FORMING SENTENCES OR EXPRESSING HER THOUGHTS DESPITE HER SPEECH BECOMING SLURRED WITH FATIGUE. SHE IS ABLE TO MOVE ALL EXTREMITIES AT WILL AND WITHOUT DIFFICULTY. SHE WOULD BENEFIT FROM PT/OT AND SPEECH MODALITIES TO ASSIST HER IN RECOVERING FROM HER ACUTE CEREBELLAR/PONTIN CVA. SHE WOULD BENEFIT FROM TEACHING REGARDING USE OF A ROLLING WALKER, ENERGY CONSERVATION AND SAFETY IN RELATION TO ANY RESIDUAL WEAKNESS FROM THE CVA. SHE HAS NO DECUBITUS ULCERS. HER SKIN TURGUR IS INTACT. HER APPETITE IS GOOD. SHE OFFERS NO COMPLAINTS OF PAIN. SHE HAS BEEN PROVIDED EDUCATION REGARDING SWING BED AND HAS CONSENTED FOR ADMISSION. JAYMIE ZEPEDA M.D.
== END 2016-06-05 13:14 | disposition swing bed (61) | DRG 65 ==
LOC: ED 13:28 → MEDSURG B 14:50
PROVIDERS: ADMIT Internal Medicine; ATTEND Internal Medicine
DX: I63.8 Other cerebral infarction (principal); G81.94 Hemiplegia, unspecified affecting left nondominant side; G46.7 Other lacunar syndromes; I51.7 Cardiomegaly; R47.1 Dysarthria and anarthria; E11.9 Type 2 diabetes mellitus without complications; I10 Essential (primary) hypertension; D64.9 Anemia, unspecified; R53.1 Weakness; Z79.899 Other long term (current) drug therapy; Z87.891 Personal history of nicotine dependence
CPT/HCPCS: 36415; 80053; 82550; 82553; 82962; 84484; 85025; 85379; 93005; 93010; 99283

== ENCOUNTER 2016-06-05 13:24 | Inpatient (IN) ==
[2016-06-05 13:53] VITALS: BMI 29.5
--- NOTE | 2016-06-05 16:35 | RS.OTINEVL ---
Subjective - Patient information Date of Evaluation: 06/05/16 Date of Arrival on Unit: 06/05/16 Admitted From:: In-House Transfer Usual Living Arrangement: Alone Living Arrangement Comments: Pt reports her son lives with her occasionally. Pt has a caregiver coming 3 hours a day for cleaning, Dr. Bennett, shopping, helping her with a bath. Home Environment: Apartment, Level/No stairs Medical History: CVA/TIA, Diabetes, Arthritis Medical History Comments:: Pt has an aneurysm of 6mm, HTN, Anemia, Cataract, TIA , CVA, cerebral and cerebellar atrophy, mild supratentorial small vessel disease , non-hemorrhagic R cerebellum and Right brachium P. infarct. Surgical History: Hysterectomy Subjective Information/ Patient Comments:: "Enjoy the fruits of your labor." "I have my memories already made." "I have a girl come help me 3 hours a day. She cooks, shops, and helps me get my bath. - Level of function Prior to this admission, the patient could do the following:: Independent Ambulation Abilities prior to this admission: PT has a caregiver 3 hours a day to help her with laundry, shopping, cooking, and her self care. Current Level of Function: Partially Dependent Current Equipment Used at Home: Rolling walker, cane, shower chair Pain Assessment - Pain Pain Score: 0 Interventions - Objective Patient Orientation: Person, Place, Time, Situation Current Interventions: IV's Observation: Pt appears to be getting stronger and using her LUE better today. Interventions - ROM Right Upper Extremity AROM: WFL's Left Upper Extremity AROM: WFL's - Strength Right Upper Extremity Strength: Mild Weakness Left Upper Extremity Strength: Mild Weakness - Sensation Right Upper Extremity Sensation: Intact/Normal Left Upper Extremity Sensation: Intact/Normal Balance - Sitting Balance Static Sitting Balance: Good Dynamic Sitting Balance: Good - Standing Balance Static Standing Balance: Fair Dynamic Standing Balance: Fair ADL Skills - Self Feeding Self Feeding: Independent - Grooming Grooming: Min Assist - Bathing Bathing UE: CGA, Min Assist Bathing LE: Min Assist - Dressing Dressing UE: CGA, Min Assist Dressing LE: Min Assist - Toilet Management Toileting Management: CGA Functional Mobility - Bed Mobility Rolling R/L: Independent Scooting: Independent Supine to Sit: CGA Sit to Supine: Independent - Transfers Sit to Stand: CGA Stand to Sit: CGA Stand Pivot Transfers: CGA - Ambulation Weight Bearing Status: FWB Assistive Device Used: Rolling Walker Orthotic/Prosthetic Device: No Assistance needed with Ambulation: CGA, 1 person assist - Safety Awareness Safety Awareness: Poor Additional Treatment Performed - Additional units charged ADL: 12 - Time with patient Total treatment time: 30 Activities Patient Interests:: Watching Television, Visiting/Socializing Patient Education Patient Education: Education of diagnosis, Home Exercise Program, Home Safety, Education of Plan of Care Teaching Recipient: Patient Teaching Methods: Discussion Assessment Problem List:: Decreased level of function, Requires training/education, Decreased safety/Risk of falls, Weakness Rehab Potential: Good Further Therapy Indicated?: Yes Short Term Goals - Goals GOAL 1: Pt to complete stand pivot transfer with CGA with RW. Goal to be met by: 06/18/16 Progress towards goal: Progressing GOAL 2: Pt to tolerate 15 minutes of therapeutic Activity for safety of ADLS. Goal to be met by: 06/18/16 Progress towards goal: Progressing GOAL 3: Pt to increase LUE strength to 4/5. Goal to be met by: 06/18/16 Progress towards goal: Progressing Long-Term Goals GOAL 1: Pt to increase functional mobility to be Modified Independent. Goal to be met by: 06/25/16 Progress towards goal: Progressing GOAL 2: Pt to tolerate 20 minutes of therapeutic activity to increase safety of ADL Goal to be met by: 06/25/16 Progress towards goal: Progressing GOAL 3: Pt to increase LUE strength to 4+/5. Goal to be met by: 06/25/16 Progress towards goal: Progressing Plan Plan of Care: Therapeutic EX, Neuromuscular Re-Educ, Therapeutic Activity, Self- Care/Home Management Frequency of Treatment: 1-2 X day, as tolerated Duration of Treatment: 2 Weeks Anticipated Discharge Destination: Home
[2016-06-05] MEDS: PRILOSEC PO SCH (16:57)
[2016-06-05] MEDS: LIPITOR PO SCH (20:32)
[2016-06-05] MEDS: TRANDATE PO SCH (20:32)
[2016-06-06] MEDS: PRILOSEC PO SCH ×2 (05:55→17:03)
[2016-06-06 06:48] LABS: BASOPHILS # (AUTO) 0.1 K/uL (0-0.2); BASOPHILS % (AUTO) 1.4 % (0.0-3.0); EOSINOPHILS # (AUTO) 0.3 K/ul (0.0-0.7); EOSINOPHILS % (AUTO) 6.4 % (0.0-7.0); HEMATOCRIT 36.1 % (37.0-47.0); HEMOGLOBIN 11.6 g/dl (12.0-16.0); IMMATURE GRANULOCYTE % (AUTO) 0.5 % (0.0-5.0); LYMPHOCYTES # (AUTO) 1.3 K/uL (0.60-3.4); LYMPHOCYTES % (AUTO) 30.6 (10.0-50.0); MEAN CORPUSCULAR HEMOGLOBIN 28.8 pg (27.0-31.0); MEAN CORPUSCULAR HGB CONC 32.1 (31.8-35.4); MEAN CORPUSCULAR VOLUME 89.6 fl (81.0-99.0); MONOCYTES # (AUTO) 0.5 K/uL (0.4-2.0); MONOCYTES % (AUTO) 10.6 (0-10); NEUTROPHILS # (AUTO) 2.2 K/ul (2.0-6.9); NEUTROPHILS % (AUTO) 50.5; PLATELET COUNT 245 10^3/uL (140-440); RED BLOOD COUNT 4.03 10^6/ul (4.20-5.40); WHITE BLOOD COUNT 4.25 K/ul (4.6-10.2)
[2016-06-06 07:19] LABS: ALBUMIN 3.5 g/dL (3.4-5.0); ALBUMIN/GLOBULIN RATIO 1.17; ANION GAP 11.9; BILIRUBIN,TOTAL 0.61 mg/dL (0.00-1.20); BUN/CREATININE RATIO 16.23; CREATININE 1.17 mg/dL (0.60-1.30); POTASSIUM 3.9 mmol/L (3.5-5.10); TOTAL PROTEIN 6.5 g/dL (5.8-8.1)
[2016-06-06] MEDS ORDERED: ASPIRIN EC PO SCH (08:00)
[2016-06-06] MEDS: ASPIRIN CHEWABLE PO SCH (09:45)
[2016-06-06] MEDS: COZAAR PO SCH (09:46)
[2016-06-06] MEDS: CATAPRES PO SCH (09:46)
[2016-06-06] MEDS: HYDROCHLOROTHIAZIDE PO SCH (09:47)
[2016-06-06] MEDS: NORVASC PO SCH (09:48)
[2016-06-06] MEDS: LOVENOX SUBCUT SCH (09:48)
[2016-06-06] MEDS: TRANDATE PO SCH ×2 (09:49→22:44)
--- NOTE | 2016-06-06 10:14 | HP ---
DATE OF SERVICE: 06/05/16 SWING BED REASON FOR HOSPITALIZATION/HISTORY OF PRESENT ILLNESS: The patient is an 85 year old black female hospitalized with CVA with left hemiparesis. The patient had right cerebellar and pontine hemorrhage and the patient has recovered practically fully except for mild left hemiparesis with power of muscles four over 5. The patient needs some assistance in walking. Her speech has improved remarkably and there was no problems swallowing. The patient needs to be in the swing bed for PT/OT. REVIEW OF SYSTEMS: CONSTITUTIONAL: No night sweats. No fatigue, malaise, lethargy. No fever or chills. HEENT: Eyes: No visual changes. No eye pain. No eye discharge. ENT: No runny nose. No epistaxis. No sinus pain. No sore throat. No odynophagia. No ear pain. No congestion. RESPIRATORY: No cough, no congestion. No hemoptysis. CARDIOVASCULAR: No angina symptoms. No CHF symptoms. No atypical chest pain for CAD. No palpitations. No shortness of breath. GASTROINTESTINAL: No abdominal pain. No nausea or vomiting. No diarrhea or constipation. No hematemesis. No hematochezia. GENITOURINARY: No urgency. No frequency. No dysuria. No hematuria. No obstructive symptoms. No discharge. No pain. No significant abnormal bleeding. MUSCULOSKELETAL: No musculoskeletal pain. No joint swelling. No arthritis. NEUROLOGICAL: No headache. No neck pain. No syncope. No seizures. No dizziness. PSYCHIATRIC: Not anxious. No depression. No suicidal thoughts. No homicidal thoughts. SKIN: No rash. No lesions. No wounds. ENDOCRINE: No unexplained weight loss. No weight gain. HEMATOLOGIC/LYMPHATIC: No anemia. No purpura. No petechiae. No prolonged or excessive bleeding. No palpable lymph nodes. PERSONAL/FAMILY/SOCIAL HISTORY: . Retired. Former smoker. Occasional alcohol use. Family History: Breast cancer, hypertension. PAST MEDICAL/SURGICAL PROBLEMS: Hypertension Anemia Dyslipidemia Cataract, bilaterally Hysterectomy Right rotator cuff replaced. Left hip replacement MEDICATIONS: Omeprazole 20mg PO twice a day Labetalol Amlodipine Besylate Clonidine ALLERGIES: None PHYSICAL EXAMINATION: GENERAL: The patient is oriented to time, place and person. VITAL SIGNS: Temperature 98.7, pulse 57, respiratory 21, blood pressure 124/75 and pulse ox 95%. HEENT: Head normocephalic, atraumatic. Eyes: Extraocular muscles are intact. Pupils are still somewhat pinpoint reactive to light sluggishly, no problem visually. light and accommodation. Ears: No lesions. Nose appeared normal. Throat: No exudate or erythema. NECK: Supple. No JVD, no carotid bruit. No lymphadenopathy or thyromegaly. LUNGS: Decreased breath sounds but clear to auscultation. Percussion note normal. Chest symmetrical. HEART: S1, S2, no S3. No murmurs. No cyanosis or clubbing. No ascites. Pulses: Dorsalis pedis and posterior tibial pulses +1 to +2 both sides. ABDOMEN: Soft. Nontender. Bowel sounds active. No CVA tenderness. No mass felt. EXTREMITIES: No edema. Full range of motion of all extremities, equal. Left upper and lower extremities mildly weak but reflexes are equal. Babinski is normal. NEUROLOGIC: No focal deficit. Cranial nerves II through XII are grossly intact. No headache, no double vision or headache. SKIN: Not dry. Intact. Turgor - normal. LYMPHATIC: No palpable lymph nodes/no lymphedema. MUSCULOSKELETAL: Normal joints with no swelling. Muscle tone is normal. LAB: Hgb 11.3, hct 35, WBC 4,300 normal differential, creatinine 1.2, BUN 18, potassium 3.8 and glucose 131. ASSESSMENT: 1. 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 2. Hypertension 3. Reflux disease 4. LVH by echo 5. Dyslipidemia PLAN: 1. Continue Lovenox 2. Continue Lipitor 3. Continue Aspirin 4. Continue Hydrochlorothiazide, Labetalol, Losartan and Omeprazole CONDITION: Stable TIME SPENT: More than 70 minutes. MTDD
--- NOTE | 2016-06-06 12:38 | RS.PDEVAL ---
Subjective Number of treatment sessions: 1 Date of Evaluation: 06/06/16 Date of Onset/Injury/Change in Status: 06/02/16 Treatment Diagnosis: TIA Prior Level of Function.....Patient was independent with: Caregiving (Pt received home health 2.5-4 hours five days a week.) Current Level of Function: This is an 85 year old female without prior history of speech or language deficits. Currently, pt communicates wants and needs independently. Pts speech intelligibility is 75% within unstructred conversation. Pt demonstrates self-awarenss of speech errors and utilizes compensatory speech strategies. Pt has no swallowing deficits with swallow initiation, mild deficits with lingual funciton, which may affect bolus manipulation and formation. Current Diet: Regular diet texture and thin liquids Current Subjective/complaints:: Pt reports weakness on left side and notices tongue weakness as "heavy tongue." Pt states her speech is improving everyday. Medical History Comments:: HTN, DM, Anemia, TIA, dysplipidemia. Hx Home Medications: Refer to medication list for complete current list. Patient's Goals: Improve speech intelligibility. Oral-Motor Evaluation - Structure Edentulous: Yes Dentures in during Evaluation: No Comments:: Pt has dentures at home. - Jaw control Jaw Control: + - Labial Function Lip spread /i/: + Lip symmetry at rest: + (Slightly asymmetrical) Droop at rest: Right Lip round /u/: + Lip smacking: + (weak smack, completed 3 trials.) - Lingual Function Protrusion: + Lick Lips: - (Discoordinated, required verbal cues to reach bottom labial.) Lateralization to buccal cavity: Left Lateralization to corners: Left (Both sides weak, over initiated in corners.) Elevation of back: - (Pt initiates but has difficulty with approximation. Can make K/G sound.) Elevation of tip: + Retraction: + - Velar Function Prolonged /a/: symmetry during evaluation: + - Reflex Swallow Reflex: + Comments:: WNL. Dry swallow 2 seconds, may be due to dry mouth. Thin liquid swallow within 1-2 seconds. Functional laryngeal elevation. Cognition/Communication - Orientation Orientation: REMODELER, Day, Date, Year, Place Follows one-step directions: REMODELER, +, with cues, without cues Follows two-step directions: REMODELER, +, with cues, without cues - Expressive language Expressive language: uses phrases (Pt independent with sentences. Mild difficulty noted with word finding.) - Short-term memory Can patient retell techniques?: Yes - Hearing acuity Hearing Acuity Right: WNL Hearing Acuity Left: WNL Wears hearing aid(s): No AMRs - Velar Rhythm: Irregular (Pt attempted to utilize strategies. LIFTER instructed pt to use habitual rhythm, which pt continued to overexaggerate.) Rate: Slow Accuracy: Imprecise (pt with 100% accuracy with sound in isolation, 60% with polysyllabic words.) - Lingua-Alveolar Rhythm: Regular Rate: Slow Accuracy: Imprecise (isolation pt with 90% acc. with consonant blends pt 60% acc.) - Bilabial Rhythm: Regular Rate: Normal Accuracy: Precise SMRs - SMRs Rhythm: Irregular Rate: Slow Accuracy: Imprecise Observations - Observations Prolong /a/: 6 (2x pitch variation) Reading and/or Conversation - Characteristics Observed Phonation: Pitch breaks Articulation: Imprecise consonants Articulation Specific Errors: velars, lingu-alveolars, polysyllabic words, consonant blends Prosody: Variable rate Comments Patient-initiated compensatory strategies: Pt demonstrates error-awareness of words, not sounds 50% of unstructured conversation. Pt utilizes slow rate of speech and exaggeration of sounds to increase speech intelligibility. Additional Comments: Pt reported sound errors prior to TIA due to culture and dialect. LIFTER notes differences between dialect and dysarthric errors. Functional Reporting G Codes: Motor speech CK Severity Impairment Rationale: Pt with 60% accuracy on structured speech tasks. Short Term Goals Goal #1: Pt to complete lingual strength exercises with 90% accuracy. Goal to be met by: 06/12/16 Goal #2: Pt exaggerates multi-syllabic consonant blends with 80% acc Goal to be met by: 06/12/16 Goal #3: Pt exaggerates multi-syllabic words in sent. with 80% acc Goal to be met by: 06/12/16 Goal #4: Pt demonstrates strategies during conversation with 80% acc Goal to be met by: 06/12/16 Research Environmental Engineer Goals Problem: Motor speech Goal #1: Pt increases speech intelligibilty to 90% acc Goal to be met by: 06/12/16 Goal #2: Pt increases lingual strength and coordination to 80% Goal to be met by: 06/12/16 Plan Duration of Treatment: 1 Week Frequency of Treatment: 3x a week Anticipated Discharge Destination: Home
--- NOTE | 2016-06-06 15:28 | RS.PTINEVL ---
Subjective - Patient information Date of Evaluation: 06/06/16 Admitted From:: In-House Transfer Usual Living Arrangement: Alone Home Environment: Apartment, Level/No stairs Medical History Comments:: HTN, DM, Anemia, TIA, dysplipidemia. Subjective Information/ Patient Comments:: Patient has equipment at home of walker and W/C. States she does not have a BSC. States she has family members check on her and help in the home a few hours a day for help with bathing and other ADL's. - Level of function Prior to this admission, the patient could do the following:: Independent Ambulation Current Level of Function: Partially Dependent Current Equipment Used at Home: Rolling walker, cane, shower chair Interventions - Objective Patient Orientation: Person, Place, Time, Situation Range of Motion - ROM Right Upper Extremity AROM: WFL's Left Upper Extremity AROM: WFL's Right Lower Extremity AROM: WFL's Left Lower Extremity AROM: WFL's Muscle Strength - Muscle Strength Comments:: Bilateral LE strength at least 4/5. Sensation - Sensation Right Lower Extremity Sensation: Intact/Normal Left Lower Extremity Sensation: Intact/Normal Balance - Sitting Balance and Reactions Static Sitting Balance: Good Dynamic Sitting Balance: Good - Standing Balance and Reactions Static Standing Balance: Fair (+) Dynamic Standing Balance: Fair Functional Mobility - Transfers Sit to Stand: CGA, Min Assist, 1 person assist, 2 person assist Stand to Sit: CGA, 1 person assist, 2 person assist Stand Pivot Transfers: CGA, Min Assist, 1 person assist, 2 person assist - Safety Awareness Safety Awareness: Fair Ambulation - Ambulation Weight Bearing Status: FWB Assistive Device Used: Rolling Walker Distance: 150 feet Assistance needed with Ambulation: CGA, 1 person assist, Verbal Cues, Tactile Cues Gait Deviations: Wide Based gait, Shuffling gait, Short stride, Lacks step continuity Ambulation Comments: Patient does not consistently clear either foot during swing phase. She does improve temporarily with verbal cues. Factors Affecting Ambulation: Decreased Balance, Weakness, Decreased Safety Treatment time - Time with patient Total treatment time: 21 (mins) Patient Education - Education Patient Education: Education of diagnosis, Home Safety Teaching Recipient: Patient Teaching Methods: Teach Back Method Used, Discussion, Demonstration Assessment - Assessment Problem List:: Decreased level of function, Requires training/education, Decreased safety/Risk of falls Rehab Potential: Good Further Therapy Indicated?: Yes Short Term Goals GOAL #1: Sit to stand with supvn of one and verbal cues. Goal to be met by: 06/08/06 GOAL #2: Supine to sit with SBA and verbal cues. Goal to be met by: 06/08/16 GOAL #3: Amb. with RW with CGA X1 with consistent foot clearance short distances. Goal to be met by: 06/08/16 Pastrycook'S Assistant Goals GOAL #1: Pt independent with all bed mobility. Goal to be met by: 06/11/16 GOAL #2: Pt transfers independently with good safety. Goal to be met by: 06/11/16 GOAL #3: Pt ambulates with RW supvn/I, household distances with good safety. Goal to be met by: 06/11/16 Plan Plan of Care: Therapeutic EX, Neuromuscular Re-Educ, Therapeutic Activity, Self- Care/Home Management Frequency of Treatment: 1-2 X day, as tolerated Duration of Treatment: 4-5 days Anticipated Discharge Destination: Home
[2016-06-06] MEDS: LIPITOR PO SCH (22:45)
[2016-06-07] MEDS: PRILOSEC PO SCH ×2 (05:48→17:31)
[2016-06-07] MEDS: COZAAR PO SCH (08:29)
[2016-06-07] MEDS: CATAPRES PO SCH (08:29)
[2016-06-07] MEDS: HYDROCHLOROTHIAZIDE PO SCH (08:30)
[2016-06-07] MEDS: TRANDATE PO SCH ×2 (08:30→20:24)
[2016-06-07] MEDS: LOVENOX SUBCUT SCH (08:30)
[2016-06-07] MEDS: NORVASC PO SCH (08:30)
[2016-06-07] MEDS: ASPIRIN CHEWABLE PO SCH (08:30)
--- NOTE | 2016-06-07 10:49 | PCM.PROG ---
Attending Provider: ATTENDING PROVIDER: Dr. JAYMIE ZEPEDA DATE OF SERVICE: 06/07/16 SUBJECTIVE: This 85 year old BLACK/ F was hospitalized 06/05/16. The patient is hospitalized in swing bed for PT/OT after left hemiparesis with CVA. She is doing better with practically no neurovascular deficit. She is up and about. Speech is practically normal and functional. She walks with a walker with PT and help. REVIEW OF SYSTEMS: CONSTITUTIONAL: No night sweats. No fatigue, malaise, lethargy. No fever or chills. HEENT: Eyes: No visual changes. No eye pain. No eye discharge. ENT: No runny nose. No epistaxis. No sinus pain. No odynophagia. No congestion. RESPIRATORY: No cough, no congestion. No hemoptysis. CARDIOVASCULAR: No angina symptoms. No CHF symptoms. No atypical chest pain for CAD. No palpitations. No shortness of breath. GASTROINTESTINAL: No abdominal pain. No nausea or vomiting. No diarrhea or constipation. No hematemesis. No hematochezia. GENITOURINARY: No urgency. No frequency. No dysuria. No hematuria. No obstructive symptoms. No discharge. No pain. No significant abnormal bleeding. MUSCULOSKELETAL: No musculoskeletal pain; no joint swelling. NEUROLOGICAL: Awake, alert, oriented to time, place and person. No headache. No neck pain. No syncope. No seizures. No dizziness. PSYCHIATRIC: Not anxious. No depression. No suicidal thoughts. No homicidal thoughts. SKIN: No rash. No lesions. No wounds. ENDOCRINE: No unexplained weight loss. No weight gain. HEMATOLOGIC/LYMPHATIC: No anemia. No purpura. No petechiae. No prolonged or excessive bleeding. No palpable lymph nodes. PHYSICAL EXAMINATION: GENERAL: The patient is awake, alert and oriented, sitting in bed in no distress. VITAL SIGNS: Temperature 97.7 F, Pulse 52, Respiratory Rate 16, BP 148/78, Pulse Ox 96% HEENT: Head normocephalic, atraumatic. Eyes: Extraocular muscles are intact. Pupils are equal, round and reactive to light and accommodation. Ears: No lesions. Nose appeared normal. Throat: No exudate or erythema. NECK: Supple. No JVD, no carotid bruit. No lymphadenopathy or thyromegaly. LUNGS: Clear to auscultation. Percussion note normal. Chest symmetrical. HEART: S1, S2, no S3. No murmurs. No cyanosis or clubbing. No ascites. Pulses: Dorsalis pedis and posterior tibial pulses +1 to +2 both sides. ABDOMEN: Soft. Non-tender. Bowel sounds active. No CVA tenderness. No mass felt. EXTREMITIES: No edema. Full range of motion of all extremities, equal. NEUROLOGIC: No focal deficit. Cranial nerves II through XII are grossly intact. No headache, no double vision or headache. SKIN: Not dry. Intact. Turgor-normal. LYMPHATIC: No palpable lymph nodes/no lymphedema. MUSCULOSKELETAL: Normal joints with no swelling. Muscle tone is normal. LAB REVIEW: 06/06/16 05:30 06/06/16 05:30 ASSESSMENT: 1. CVA with left hemiparesis. Weakness in upper and lower extremities is less. No problems with speech. The patient is progressing well with PT/OT. 2. Hypertension - blood pressure is acceptable. 3. Reflux disease. 4. LVH by echo. 5. Dyslipidemia. PLAN: 1. Continue PT/OT Plan and coordination of the patient's care discussed in the presence of Foreign Language Teacher and nurse. CONDITION: Stable SCRIBED BY: KAVON CRISTINA Structural Engineering Project Manager scribed while in presence of service performed by Dr. JAYMIE ZEPEDA on 06/07/16 ([id number])
[2016-06-07] MEDS: LIPITOR PO SCH (20:24)
[2016-06-08] MEDS: PRILOSEC PO SCH ×2 (05:38→16:53)
[2016-06-08] MEDS: LOVENOX SUBCUT SCH (08:01)
[2016-06-08] MEDS: NORVASC PO SCH (08:02)
[2016-06-08] MEDS: CATAPRES PO SCH (08:02)
[2016-06-08] MEDS: TRANDATE PO SCH ×2 (08:02→20:34)
[2016-06-08] MEDS: COZAAR PO SCH (08:02)
[2016-06-08] MEDS: ASPIRIN CHEWABLE PO SCH (08:02)
[2016-06-08] MEDS: HYDROCHLOROTHIAZIDE PO SCH (08:03)
[2016-06-08] MEDS: LIPITOR PO SCH (20:34)
[2016-06-09 05:36] LABS: BASOPHILS # (AUTO) 0.1 K/uL (0-0.2); BASOPHILS % (AUTO) 1.3 % (0.0-3.0); EOSINOPHILS # (AUTO) 0.3 K/ul (0.0-0.7); EOSINOPHILS % (AUTO) 6.3 % (0.0-7.0); HEMATOCRIT 35.3 % (37.0-47.0); HEMOGLOBIN 11.3 g/dl (12.0-16.0); IMMATURE GRANULOCYTE % (AUTO) 0.3 % (0.0-5.0); LYMPHOCYTES # (AUTO) 1.4 K/uL (0.60-3.4); LYMPHOCYTES % (AUTO) 35.6 (10.0-50.0); MEAN CORPUSCULAR HEMOGLOBIN 29.2 pg (27.0-31.0); MEAN CORPUSCULAR VOLUME 91.2 fl (81.0-99.0); MONOCYTES # (AUTO) 0.4 K/uL (0.4-2.0); MONOCYTES % (AUTO) 9.3 (0-10); NEUTROPHILS # (AUTO) 1.9 K/ul (2.0-6.9); NEUTROPHILS % (AUTO) 47.2; PLATELET COUNT 225 10^3/uL (140-440); RED BLOOD COUNT 3.87 10^6/ul (4.20-5.40); WHITE BLOOD COUNT 3.99 K/ul (4.6-10.2)
[2016-06-09] MEDS: PRILOSEC PO SCH ×2 (05:39→16:55)
[2016-06-09 05:53] LABS: ALBUMIN 3.3 g/dL (3.4-5.0); ALBUMIN/GLOBULIN RATIO 1.1; BILIRUBIN,TOTAL 0.5 mg/dL (0.00-1.20); BUN/CREATININE RATIO 24.57; CALCIUM 9.1 mg/dL (8.2-10.2); CREATININE 1.18 mg/dL (0.60-1.30); TOTAL PROTEIN 6.3 g/dL (5.8-8.1)
[2016-06-09] MEDS: TRANDATE PO SCH ×2 (08:13→20:22)
[2016-06-09] MEDS: LOVENOX SUBCUT SCH (08:13)
[2016-06-09] MEDS: HYDROCHLOROTHIAZIDE PO SCH (08:13)
[2016-06-09] MEDS: ASPIRIN CHEWABLE PO SCH (08:13)
[2016-06-09] MEDS: CATAPRES PO SCH (08:14)
[2016-06-09] MEDS: COZAAR PO SCH (08:14)
[2016-06-09] MEDS: NORVASC PO SCH (08:14)
[2016-06-09] MEDS: LIPITOR PO SCH (20:22)
[2016-06-10] MEDS: PRILOSEC PO SCH (05:42)
[2016-06-10 06:13] VITALS: BP 157/72; TEMP 98.2
[2016-06-10] MEDS: NORVASC PO SCH (08:38)
[2016-06-10] MEDS: TRANDATE PO SCH (08:38)
[2016-06-10] MEDS: ASPIRIN CHEWABLE PO SCH (08:38)
[2016-06-10] MEDS: COZAAR PO SCH (08:39)
[2016-06-10] MEDS: HYDROCHLOROTHIAZIDE PO SCH (08:39)
[2016-06-10] MEDS: LOVENOX SUBCUT SCH (08:39)
[2016-06-10] MEDS: CATAPRES PO SCH (08:39)
--- NOTE | 2016-06-10 09:53 | RS.DYSARDC ---
Subjective Date of Discharge: 06/10/16 Date of Evaluation: 06/07/16 Duration of Therapy: week Number of sessions: 1 Functional Reporting G Codes: motor speech Severity Impairment Rationale: Current CM Discharge CM Pt with 85-90% accuracy. Short Term Goals Problem: Motor speech Goal #1: Pt to complete lingual strength exercises with 90% accuracy. Goal to be met by: 06/12/16 Progress towards Goal: Partially Met Comments:: Pt independently completes with 80% acc. Increasing to 90% with cues. Problem: Motor speech Goal #2: Pt exaggerates multi-syllabic consonant blends with 80% acc Goal to be met by: 06/12/16 Progress towards Goal: Met Comments:: Pt completes 10 trials of 5 reps with 80%-85% acc. Problem: Motor speech Goal #3: Pt exaggerates multi-syllabic words in sent. with 80% acc Goal to be met by: 06/12/16 Progress towards Goal: Met Comments:: Over 10 trials pt with 80% acc, with self-awarenss. Problem: Motor speech Goal #4: Pt demonstrates strategies during conversation with 80% acc Goal to be met by: 06/12/16 Progress towards Goal: Partially Met Comments:: Pt demonstrates strategies 75% of convo. 3/5 strategies independently. Tax Assistant Goals Problem: Motor speech Goal #1: Pt increases speech intelligibilty to 90% acc Goal to be met by: 06/12/16 Progress towards Goal: Partially Met Comments:: In structured convo, pt with 90%. Unstructured 75-80% Problem: Motor speech Goal #2: Pt increases lingual strength and coordination to 80% Goal to be met by: 06/12/16 Progress towards Goal: Met Reason for Discharge Comments: Pt demonstrated spontaneous recovery, as well as increased self- awareness and monitoring speech rate, improving speech intelligibility to 80% accuracy. Pt reported speech 9/10 with self-improvement. Unfamiliar listeners and familiar listeners require minimal repetition for successful communication exchanges. Reason for Discharge/Current Status:: Pt returning home with caregiver support. Pt with functional speech intelligibility to report wants, needs, participate in conversation, and speak on the phone.
--- NOTE | 2016-06-10 11:19 | PN ---
DATE OF SERVICE: 06/08/16 SUBJECTIVE: The patient is an 85 year old black female hospitalized with stroke. The patient had left hemiparesis. The patient's condition is improved remarkably. REVIEW OF SYSTEMS: CONSTITUTIONAL: No night sweats. No fatigue, malaise, lethargy. No fever or chills. HEENT: Eyes: No visual changes. No eye pain. No eye discharge. ENT: No runny nose. No epistaxis. No sinus pain. No sore throat. No odynophagia. No congestion. RESPIRATORY: No cough, no congestion. No hemoptysis. CARDIOVASCULAR: No angina symptoms. No CHF symptoms. No atypical chest pain for CAD. No palpitations. No shortness of breath. GASTROINTESTINAL: No abdominal pain. No nausea or vomiting. No diarrhea or constipation. No hematemesis. No hematochezia. GENITOURINARY: No urgency. No frequency. No dysuria. No hematuria. No obstructive symptoms. No discharge. No pain. No significant abnormal bleeding. MUSCULOSKELETAL: No musculoskeletal pain; no joint swelling. NEUROLOGICAL: No headache. No neck pain. No syncope. No seizures. No dizziness. PSYCHIATRIC: Not anxious. No depression. No suicidal thoughts. No homicidal thoughts. SKIN: No rash. No lesions. No wounds. ENDOCRINE: No unexplained weight loss. No weight gain. HEMATOLOGIC/LYMPHATIC: No anemia. No purpura. No petechiae. No prolonged or excessive bleeding. No palpable lymph nodes. PHYSICAL EXAMINATION: GENERAL: The patient is oriented to time, place and person. VITAL SIGNS: Temperature 97.4, pulse 52, respiratory rate 18, blood pressure 139 /67 and pulse ox 96%. HEENT: Head normocephalic, atraumatic. Eyes: Extraocular muscles are intact. Pupils are equal, round and reactive to light and accommodation. Ears: No lesions. Nose appeared normal. Throat: No exudate or erythema. NECK: Supple. No JVD, no carotid bruit. No lymphadenopathy or thyromegaly. LUNGS: Decreased breath sounds but clear to auscultation. Percussion note normal. Chest symmetrical. HEART: S1, S2, no S3. No murmurs. No cyanosis or clubbing. No ascites. Pulses: Dorsalis pedis and posterior tibial pulses +1 to +2 both sides. ABDOMEN: Soft. Nontender. Bowel sounds active. No CVA tenderness. No mass felt. EXTREMITIES: No edema. Full range of motion of all extremities, equal. NEUROLOGIC: No focal deficit. Cranial nerves II through XII are grossly intact. No headache, no double vision or headache. SKIN: Not dry. Intact. Turgor - normal. LYMPHATIC: No palpable lymph nodes/no lymphedema. MUSCULOSKELETAL: Normal joints with no swelling. Muscle tone is normal. LABS: hgb 11.6, hct 36, WBC 4,200 normal differential, creatinine 1.1, BUN 19, potassium 3.9 and glucose 121. ASSESSMENT: 1. Left hemiparesis seems to be resolving. The patient is progressing very well. 2. Hypertension, controlled PLAN: 1. Risk factors for the stroke discussed. 2. The patient is receptive 3. Advised the patient to keep walking. She is cooperating. CONDITION: Stable TIME SPENT: More than 30 minutes. Plan and coordination of the patient's care discussed in the presence of nurse. PABLITO
--- NOTE | 2016-06-10 11:50 | PCM.PROG ---
Attending Provider: ATTENDING PROVIDER: Dr. JAYMIE ZEPEDA DATE OF SERVICE: 06/10/16 - DISCHARGE NOTE SUBJECTIVE: This 85 year old BLACK/ F was hospitalized 06/05/16. The patient was hospitalized with stroke and left hemiparesis. The patient has been up and about, doing well with no neurological deficit. The patient has done well with PT. REVIEW OF SYSTEMS: CONSTITUTIONAL: No night sweats. No fatigue, malaise, lethargy. No fever or chills. HEENT: Eyes: No visual changes. No eye pain. No eye discharge. ENT: No runny nose. No epistaxis. No sinus pain. No odynophagia. No congestion. RESPIRATORY: No cough, no congestion. No hemoptysis. CARDIOVASCULAR: No angina symptoms. No CHF symptoms. No atypical chest pain for CAD. No palpitations. No shortness of breath. GASTROINTESTINAL: No abdominal pain. No nausea or vomiting. No diarrhea or constipation. No hematemesis. No hematochezia. GENITOURINARY: No urgency. No frequency. No dysuria. No hematuria. No obstructive symptoms. No discharge. No pain. No significant abnormal bleeding. MUSCULOSKELETAL: No musculoskeletal pain; no joint swelling. NEUROLOGICAL: Awake, alert, oriented to time, place and person. No headache. No neck pain. No syncope. No seizures. No dizziness. PSYCHIATRIC: Not anxious. No depression. No suicidal thoughts. No homicidal thoughts. SKIN: No rash. No lesions. No wounds. ENDOCRINE: No unexplained weight loss. No weight gain. HEMATOLOGIC/LYMPHATIC: No anemia. No purpura. No petechiae. No prolonged or excessive bleeding. No palpable lymph nodes. PHYSICAL EXAMINATION: GENERAL: The patient is awake, alert and oriented, sitting in bed in no distress. VITAL SIGNS: Temperature 98.2 F, Pulse 53, Respiratory Rate 16, BP 157/72, Pulse Ox 92% HEENT: Head normocephalic, atraumatic. Eyes: Extraocular muscles are intact. Pupils are equal, round and reactive to light and accommodation. Ears: No lesions. Nose appeared normal. Throat: No exudate or erythema. NECK: Supple. No JVD, no carotid bruit. No lymphadenopathy or thyromegaly. LUNGS: Clear to auscultation. Percussion note normal. Chest symmetrical. HEART: S1, S2, no S3. No murmurs. No cyanosis or clubbing. No ascites. Pulses: Dorsalis pedis and posterior tibial pulses +1 to +2 both sides. ABDOMEN: Soft. Non-tender. Bowel sounds active. No CVA tenderness. No mass felt. EXTREMITIES: No edema. Full range of motion of all extremities, equal. NEUROLOGIC: No focal deficit. Cranial nerves II through XII are grossly intact. No headache, no double vision or headache. SKIN: Not dry. Intact. Turgor-normal. LYMPHATIC: No palpable lymph nodes/no lymphedema. MUSCULOSKELETAL: Normal joints with no swelling. Muscle tone is normal. LAB REVIEW: 06/09/16 05:32 06/09/16 05:32 ASSESSMENT: 1. CVA with left hemiparesis resolved mostly. 2. Diabetes mellitus, Type 2 3. Hypertension 4. GERD 5. Anemia 6. Dyslipidemia PLAN: 1. Norvasc 10 mg 2. Lipitor 10 mg at bedtime 3. Cozaar and Hydrochlorothiazide 4. Catapres 5. Labetalol 6. Continue all the above 7. Renal flow study to rule out stenosis EDUCATION CARRIED OUT ABOUT: Discussed with the patient about the need for Home Health for nursing services, PT/OT, nutritional assessment and medication management. The patient voiced understanding and is in agreement. Plan and coordination of the patient's care discussed in the presence of Shelter Advocate and nurse. CONDITION: Stable SCRIBED BY: KAVON CRISTINA Electric Plater scribed while in presence of service performed by Dr. JAYMIE ZEPEDA on 06/10/16 ([id number])
--- NOTE | 2016-06-10 12:07 | CM.DICTOOL ---
ADMISSION: 06/05/16 13:24 DISCHARGE: 06/10/16 DATE OF SERVICE: 06/10/16 FINAL DIAGNOSIS ACUTE CVA, CEREBELLAR AND PONTINE HYPERTENSION DM, TYPE 2 - DIET CONTROLLED GERD ANEMIA DYSLIPIDEMIA CATARACT EXTRACTIONS, BILATERAL HYSTERECTOMY RIGHT ROTATOR CUFF REPAIR LEFT HIP REPAIR LAST VITALS Temp Pulse Resp BP Pulse Ox 98.2 F 53 L 16 157/72 H 92 L 06/10/16 06:00 06/10/16 06:00 06/10/16 06:00 06/10/16 06:00 06/10/16 06:00 ACTIVE MEDICATIONS Amlodipine Besylate (Norvasc) 10 mg PO DAILY [facility] Last Admin: 06/10/16 08:38 Dose: 10 mg Aspirin (Aspirin Chewable) 81 mg PO DAILYWM [facility] Last Admin: 06/10/16 08:38 Dose: 81 mg Atorvastatin Calcium (Lipitor) 10 mg PO BEDTIME [facility] Last Admin: 06/09/16 20:22 Dose: 10 mg Clonidine (Catapres) 0.1 mg PO DAILY [facility] Last Admin: 06/10/16 08:39 Dose: 0.1 mg Labetalol HCl (Trandate) 100 mg PO BID [facility] Last Admin: 06/10/16 08:38 Dose: 100 mg Losartan Potassium/HCTZ (HYzaar) 100-12.5 mg PO DAILY [facility] Last Admin: 06/10/16 08:39 Dose: 100 mg Omeprazole (Prilosec) 20 mg PO BIDAC [facility] Last Admin: 06/10/16 05:42 Dose: 20 mg denotes medications added during this stay that will be continued after discharge ALLERGIES No Known Allergies Allergy (Unverified 06/02/16 13:41) NEW PRESCRIPTIONS: NORVASC 10 MG, TAKE ONE TABLET BY MOUTH DAILY LIPITOR 10 MG, TAKE ONE TABLET BY MOUTH DAILY AT BEDTIME HYZAAR 100-12.5 MG, TAKE ONE TABLET BY MOUTH DAILY ENTERIC COATED ASPIRIN 81 MG, TAKE ONE TABLET BY MOUTH DAILY WITH A MEAL (OVER- THE-COUNTER) SMOKING: NONSMOKER DISEASE SPECIFIC EDUCATION: ACUTE CVA HOME HEALTH: PT/OT AND NURSING SERVICES HOME MEDICATIONS NEW PRESCRIPTIONS ACTIVITY FOLLOW UP OUTPATIENT TESTING LAB REVIEW: 06/09/16 05:32 06/09/16 05:32 PLAN: DISCHARGE HOME TODAY RETURN TO SEE DR. ZEPEDA IN 5-7 DAYS. PLEASE PHONE HIS OFFICE TO SCHEDULE YOUR FOLLOW UP APPOINTMENT ([phone]). RETURN TO [facility] OUTPATIENT TO HAVE AN ULTRASOUND OF THE KIDNEYS AND RENAL ULTRA SOUND ON 06/13/16 AT 7:30 A.M. IN PREPARATION FOR THESE TESTS, DO NOT EAT OR DRINK ANYTHING AFTER MIDNIGHT THE EVENING BEFORE THE TEST. YOU MAY TAKE A VERY SMALL SIP OF WATER TO TAKE YOUR MORNING MEDICATIONS. [facility] SERVICE AND HOME HEALTH WITH NURSING, PT AND OT WILL BE ARRANGED. [facility] WILL PHONE YOU TO MAKE AN APPOINTMENT TO SEE YOU IN YOUR HOME. RESUME YOUR HOME MEDICATIONS PER LIST PROVIDED BY THE NURSING STAFF NEW PRESCRIPTIONS: NORVASC 10 MG, TAKE ONE TABLET BY MOUTH DAILY LIPITOR 10 MG, TAKE ONE TABLET BY MOUTH DAILY AT BEDTIME HYZAAR 100-12.5 MG, TAKE ONE TABLET BY MOUTH DAILY ENTERIC COATED ASPIRIN 81 MG, TAKE ONE TABLET BY MOUTH DAILY WITH A MEAL (OVER- THE-COUNTER) ACTIVITY: GET PLENTY OF REST AT HOME. GRADUALLY INCREASE YOUR ACTIVITY LEVEL ACCORDING TO YOUR TOLERATION. DIET: CONSISTENT CARBS STAY WELL HYDRATED SUMMARY: THE PATIENT IS ALERT AND ORIENTED X3. SHE CURRENTLY RESIDES AT HOME ALONE. HER SON AND HIS GIRLFRIEND RESIDE NEXT DOOR. THE TWO OF THEM PROVIDE ASSISTANCE FOR THE PATIENT NEEDED. SHE UTILIZES [facility] 5 DAYS/15 HOURS PER WEEK. SHE HAS A ROLLING WALKER, HOVER ROUND CHAIR, CANE, SHOWER CHAIR AND GLUCOMETER WITH TESTING SUPPLIES. WE WILL ARRANGE [facility] HOME HEALTH NURSING TO PROVIDE GENERAL NURSING ASSESSMENT AND MEDICATION COMPLIANCE. PT/OT WILL PROVIDES SERVICES IN HER HOME ENVIRONMENT FOR HOME SAFETY AND ENERGY CONSERVATION. THE PATIENT HAS NO RESIDUAL EFFECTS FROM HER RECENT ACUTE CVA. HER SPEECH AND SWALLOWING ABILITY HAS BEEN EVALUATED DURING THIS STAY. SHE CURRENTLY IS HAVING NO DIFFICULTY WITH EITHER. HER SKIN TURGOR IS INTACT AND WITHOUT DECUBITUS ULCERS. SHE OFFERS NO COMPLAINTS OF SOB, PAIN OR DISCOMFORT. SHE IS AGREEABLE FOR DISCHARGE TODAY. JAYMIE ZEPEDA M.D.
--- NOTE | 2016-06-11 11:23 | DS ---
DATE OF SERVICE: 06/10/16 FINAL DIAGNOSIS: 1. Acute CVA, cerebellar and pontine 2. Hypertension 3. Diabetes Mellitus, type 2-diet controlled 4. GERD 5. Anemia 6. Dyslipidemia 7. Cataract extractions, bilateral 8. Hysterectomy 9. Right rotator cuff repair 10.Left hip repair. LAST VITALS: Temperature 98.2, pulse 53, respiratory 16, blood pressure 157/72 and pulse ox 92% DISCHARGE INSTRUCTIONS: Discharge home today. Return to see Dr. Granger in 5-7 days. Return to [facility] outpatient to have an ultrasound of the kidney s and renal ultra sound on 06-13-16 at 7:30am. In preparation for these test, Do not eat or drink anything after midnight the evening before the test. May take a very small sip of water to take morning medications. [facility] Homemaking service and Home Health with nursing, PT and OT will be arranged. ADD will phone to make an appointment to see the patient. Resume home medications as per list provided by the nursing staff. MEDICATIONS AT DISCHARGE: Norvasc 10mg PO daily Aspirin chewable 81mg PO daily Lipitor 10mg PO bedtime Catapres 0.1mg PO daily Trandate 100mg PO twice a day Hyzaar 100-12.5mg PO daily Prilosec 20mg PO twice a day ALLERGIES: No know allergies NEW PRESCRIPTIONS: Norvasc 10mg take one tablet by mouth daily Lipitor 10mg take one tablet by mouth daily at bedtime Hyzaar 100-12.5mg, take one tablet by mouth daily Enteric coated Aspirin 81mg take one tablet by moth daily with a meal (over the counter) DIET INSTRUCTIONS: Consistent Carbohydrates Stay well hydrated ACTIVITY: Get plenty of rest at home. Gradually increase activity level according to toleration. SMOKING: Non-smoker DISEASE SPECIFIC EDUCATION: Acute CVA Home Health: PT/OT and nursing services Home medications New prescriptions Activity Followup Outpatient testing. HOSPITAL COURSE: The patient is an 85 year old black female hospitalized with left hemiparesis. The patient had acute pontine and cerebellar hemorrhage. She has practically recovered fully with problems with the speech, swallowing and walking. The patient's blood pressure is under control. It still fluctuates the systolic at high level. The patient's kidney function 1.1 BUN of 29 with hgb of 11.3 with hct of 35. The patient was put in the swing bed where her progress was flawless. The patient is oriented to time, place and person and very intelligent. CONDITION: Stable. TIME SPENT: More than 60 minutes. PABLITO
== END 2016-06-10 13:47 | disposition home or self-care (01) | DRG 65 ==
LOC: MEDSURG B 13:24
PROVIDERS: ADMIT Internal Medicine; ATTEND Internal Medicine
DX: I63.8 Other cerebral infarction (principal); G81.94 Hemiplegia, unspecified affecting left nondominant side; R47.1 Dysarthria and anarthria; R13.10 Dysphagia, unspecified; I51.7 Cardiomegaly; E11.9 Type 2 diabetes mellitus without complications; I10 Essential (primary) hypertension; D64.9 Anemia, unspecified; E78.5 Hyperlipidemia, unspecified; K21.9 Gastro-esophageal reflux disease without esophagitis; Z79.899 Other long term (current) drug therapy; Z87.891 Personal history of nicotine dependence
CPT/HCPCS: 36415; 80053; 82962; 85025; 97802

== ENCOUNTER 2016-06-28 12:09 | Outpatient (CLI) ==
--- NOTE | 2016-06-28 13:41 | US ---
EXAM: Ultrasound retroperitoneal complete. HISTORY: Chronic kidney disease. COMPARISON: None available. TECHNIQUE: Multiple madrid scale and color Doppler images. FINDINGS: Right kidney measures 8.7 x 3.8 x 3.7 cm. The left kidney measures 6.8 x 4.2 x 3.1 cm. Cortical echogenicity is normal. There is no hydronephrosis. Urinary bladder is collapsed and not well evaluated. Incidental note is made of cholelithiasis. IMPRESSION: 1. No acute sonographic abnormality of the kidneys. 2. Relatively small left kidney. 3. Incidental cholelithiasis.
--- NOTE | 2016-06-28 13:41 | US ---
EXAM: Ultrasound renal Doppler. HISTORY: Chronic kidney disease. Hypertension. COMPARISON: None available. TECHNIQUE: Merida-scale and color Doppler images. FINDINGS: Right kidney measures 8.7 cm in length. There is no hydronephrosis. Peak systolic velocity measurement in the right renal artery are 0.9, 0.9 and 0.9 meters per second in the origin, midportion and distal portion respectively. Right renal artery to aortic ratios abdullahi ure 1.0, 1.0 and 1.0. Right renal resistive index measures 0.77. Left kidney measures 6.8 cm in length. There is no hydronephrosis. Peak systolic velocity measurements in the left renal artery are not seen, 0.6 and 0.7 meters per se cond in the origin, midportion and distal portion respectively. Left renal artery to aortic ratios measure not seen, 0.7 and 0.8. Left renal resistive index measures 0.6. Venous outflow is seen bilaterally. IMPRESSION: No evidence for hemodynamically significant stenosis in the right or left renal artery at the levels examined.
== END 2016-06-28 12:10 | disposition home or self-care (01) ==
LOC: RAD 12:09
PROVIDERS: ATTEND Internal Medicine
DX: N18.9 Chronic kidney disease, unspecified (principal)
CPT/HCPCS: 76770

== ENCOUNTER 2017-09-23 22:03 | Emergency (ER) | payer OTHER ==
[2017-09-23 22:08] VITALS: BMI 27.4
[2017-09-23] MEDS ORDERED: MORPHINE 2 MG/ML SYRINGE IVP STA (22:39)
[2017-09-23] MEDS ORDERED: ZOFRAN 4 MG/2 ML IVP STA (22:39)
--- NOTE | 2017-09-23 22:41 | ED.PDOC ---
General ED Provider: Dr. PHUC SCOTT Chief Complaint: Hip Pain/Injury Stated Complaint: Patient states she has a history of left hip replacement. has been on chronic pain medications which she ran out of two days ago. Now has severe pain. Time Seen by Physician: 22:39 Mode of Arrival: Ambulance Information Source: Patient, EMT Exam Limitations: No limitations Primary Care Provider: JAYMIE ZEPEDA Nursing and Triage Documentation Reviewed and Agree: Yes Reviewed sepsis parameters & appropriate labs ordered?: No System Inflammatory Response Syndrome: Not Applicable Sepsis Protocol: For patient's 13 years and over: Temp is 96.8 and below OR 101 and greater Pulse >90 BPM Resp >20/minute Acutely Altered Mental Status Are patient's symptoms suggestive of a new infection, such as: -Pneumonia -Skin, Soft Tissue -Endocarditis -UTI -Bone, Joint Infection -Implantable Device -Acute Abdominal Infection -Wound Infection -Meningitis -Blood Stream Catheter Infection -Unknown System Inflammatory Response Syndrome: Not Applicable Review of Systems - Review Of Systems Constitutional: Reports: No symptoms Eyes: Reports: No symptoms Ears, Nose, Mouth, Throat: Reports: No symptoms Respiratory: Reports: No symptoms Cardiac: Reports: No symptoms GI: Reports: No symptoms : Reports: No symptoms Musculoskeletal: Reports: No symptoms Skin: Reports: No symptoms Neurological: Reports: No symptoms Endocrine: Reports: No symptoms Hematologic/Lymphatic: Reports: No symptoms All Other Systems: Reviewed and Negative Past Medical History - Past Medical History Endocrine: Reports: DM 2 Cardiovascular: Reports: Hypertension Respiratory: Reports: None Hematological: Reports: None Gastrointestinal: Reports: None Genitourinary: Reports: None Neuro/Psych: Reports: None Musculoskeletal: Reports: Arthritis Cancer: Reports: None Last Menstrual Period: NONE - Surgical History General Surgical History: Reports: Orthopedic (left hip replacement ) - Family History Family History: Reports: Unknown - Social History Smoking Status: Former smoker Hx Substance Use: No Alcohol Screening: None - Immunizations Tetanus Shot up to Date: Yes Physical Exam - Physical Exam Appearance: Ill-appearing, Obese Pain Distress: Severe Neck: Supple Respiratory: Airway patent, Breath sounds clear, Breath sounds equal, Respirations nonlabored Cardiovascular: RRR, Pulses normal, No rub, No murmur GI/: Soft, Nontender, No masses, Bowel sounds normal, No Organomegaly Musculoskeletal: Normal strength, No edema, No calf tenderness, Limited ROM Skin: Warm, Dry, Normal color Neurological: Sensation intact, Motor intact, Reflexes intact, Cranial nerves intact, Alert, Oriented Psychiatric: Anxious Interpretation - Radiology Interpretation Radiology Interpretation By: Radiologist Radiology Results: No acute changes Exam Interpreted: CT Scan Critical Care Note - Critical Care Note Total Time (mins): 0 Course - Course Orders, Labs, Meds: Orders Category Date Time Status Morphine Sulfate [Morphine 2 mg/ml Syringe] MEDS 09/23/17 22:39 Discontinued 2 mg IVP ONCE STA Ondansetron HCl/Pf [Zofran 4 mg/2 ml] MEDS 09/23/17 22:39 Discontinued 4 mg IVP ONCE STA CT PELVIS W/O CONTRAST Stat RADS 09/23/17 22:42 Completed Medications Discontinued Medications Generic Name Dose Route Start Last Admin Trade Name Freq PRN Reason Stop Dose Admin Morphine Sulfate 2 mg 09/23/17 22:39 09/23/17 22:46 Morphine 2 Mg/Ml Syringe IVP 09/23/17 22:40 2 mg ONCE STA Administration Ondansetron HCl 4 mg 09/23/17 22:39 09/23/17 22:46 Zofran 4 Mg/2 Ml IVP 09/23/17 22:40 4 mg ONCE STA Administration Vital Signs: Temp Pulse Resp BP Pulse Ox 09/24/17 03:00 98.4 F 80 18 154/88 H 95 09/24/17 00:10 98 F 80 18 158/88 H 95 09/23/17 22:04 98 F 84 16 160/90 H 95 Departure - Departure Time of Disposition: 00:12 Disposition: HOME SELF-CARE Discharge Problem: Hip pain Instructions: Hip Pain (ED) Condition: Stable Pt referred to PMD for follow-up: Yes IPMP verified?: No Additional Instructions: Continue home medications Follow up with pcp in 3 days Prescriptions: Hydrocodone/Acetaminophen [[place] 5-325 Tablet] 1 tab PO Q6HR PRN #12 tablet PRN Reason: PAIN Allergies/Adverse Reactions: Allergies No Known Allergies Allergy (Unverified 09/23/17 22:07) Home Medications: Ambulatory Orders Clonidine HCl 0.1 mg PO DAILY 06/02/16 Labetalol HCl [Trandate] 100 mg PO BID 06/02/16 Omeprazole [Prilosec] 20 mg PO BIDAC 06/02/16 Amlodipine Besylate [Norvasc] 10 mg PO DAILY #30 tablet 06/10/16 Aspirin [Aspirin EC] 81 mg PO DAILYWM #30 tablet. 06/10/16 Atorvastatin Calcium [Lipitor] 10 mg PO BEDTIME #30 tablet 06/10/16 Losartan/Hydrochlorothiazide [Hyzaar 100-12.5 Tablet] 1 each PO DAILY #30 tablet 06/10/16 Hydrocodone/Acetaminophen [[place] 5-325 Tablet] 1 tab PO Q6HR PRN #12 tablet Disposition Discussed With: Patient, Family
--- NOTE | 2017-09-24 00:15 | CT ---
Exam: CT of the pelvis without contrast History: Left pelvic pain Technique: [address] of the pelvis without contrast. FINDINGS: Heavy atherosclerotic vascular calcification with ectatic common iliacs measuring 1.7 and 1.8 cm on the right and left respectively. The appendix is seen. Right colonic and sigmoid colonic diverticulosis is present. No pelvic fat inflammation. Normal urinary bladder. Prior hysterectomy. No acute abnormality of the skeleton. Left hip arthroplasty. Impression: 1. No acute findings of the bony pelvis or pelvic viscera. 2. Colonic diverticulosis
[2017-09-24 05:46] VITALS: BP 154/88; TEMP 98.4
== END 2017-09-24 07:40 | disposition home or self-care (01) ==
LOC: ED 22:03
DX: M25.552 Pain in left hip (principal); G89.29 Other chronic pain; Z96.642 Presence of left artificial hip joint
CPT/HCPCS: 96374; 96375; 99283

== ENCOUNTER 2018-04-26 10:06 | Emergency (ER) ==
[2018-04-26 10:24] VITALS: BP 143/66; TEMP 97.3; BMI 31.2
--- NOTE | 2018-04-26 10:24 | ED.PDOC ---
General ED Provider: Dr. GERMÁN ESTRADA-ER Chief Complaint: Stroke Stated Complaint: was sent to [facility] 2 days ago and returned home--no intervention for mca clot--placed on asa and plavix---had slurred speech again at 8:30 Time Seen by Physician: 10:22 Mode of Arrival: Ambulance Information Source: Patient, EMT Exam Limitations: No limitations Primary Care Provider: JAYMIE ZEPEDA Nursing and Triage Documentation Reviewed and Agree: Yes Does patient meet sepsis criteria?: No System Inflammatory Response Syndrome: Not Applicable Sepsis Protocol: For patient's 13 years and over: Temp is 96.8 and below OR 101 and greater Pulse >90 BPM Resp >20/minute Acutely Altered Mental Status Are patient's symptoms suggestive of a new infection, such as: -Pneumonia -Skin, Soft Tissue -Endocarditis -UTI -Bone, Joint Infection -Implantable Device -Acute Abdominal Infection -Wound Infection -Meningitis -Blood Stream Catheter Infection -Unknown - Neurological Deficit Complaint/Exam Patient Complains of: Reports: Other (dysarthric speech) Symptom Onset Unknown: No Symptom Onset Date: 04/26/18 Symptom Onset Time: 08:30 Onset: Sudden Symptoms Are: Resolved Initial Severity: Mild Current Severity: Mild Character: Reports: Impaired speech Aggravating: Reports: Hypertension Alleviating: Reports: None Associated Signs and Symptoms: Denies: Confusion, Agitation, Responsiveness, LOC , Headache, Fever, Nuchal rigidity, Recent trauma, Remote trauma, Recent illness CVA Risk Factors: Reports: Hypertension SDH Risk Factors: Reports: Elderly Carotid Bruit Present: No Glascow Coma Scale (see protocol): 15 Meningeal Signs Positive: No Focal Weakness: Present: None Focal Sensory Loss: Present: None Gait: Normal Nystagmus Present: No Gag Reflex Present: Yes [id number]: Normal Findings Romberg Test Positive: No Babinski Sign: Negative Right, Negative Left Heel to Toe Normal: Yes Signs of Trauma: No NIH Scale Score (see protocol): 1 IV t-PA Prescribed: No Reasons for not prescribing IV t-PA: Medical contraindication Differential Diagnoses: CVA, TIA Quality Indicator For Non-Traumatic Chest Pain/Syncope: EKG Performed Review of Systems - Review Of Systems Constitutional: Reports: No symptoms Eyes: Reports: No symptoms Ears, Nose, Mouth, Throat: Reports: No symptoms Respiratory: Reports: No symptoms Cardiac: Reports: No symptoms GI: Reports: No symptoms : Reports: No symptoms Musculoskeletal: Reports: No symptoms Skin: Reports: No symptoms Neurological: Reports: No symptoms Endocrine: Reports: No symptoms Hematologic/Lymphatic: Reports: No symptoms All Other Systems: Reviewed and Negative Past Medical History - Past Medical History Previously Healthy: No Endocrine: Reports: DM 2 Cardiovascular: Reports: Hypertension Respiratory: Reports: None Hematological: Reports: None Gastrointestinal: Reports: None Genitourinary: Reports: None Neuro/Psych: Reports: None Musculoskeletal: Reports: Arthritis Cancer: Reports: None - Surgical History General Surgical History: Reports: Orthopedic (left hip replacement ) - Family History Family History: Reports: Unknown - Social History Smoking Status: Former smoker Hx Substance Use: No Alcohol Screening: None Physical Exam - Physical Exam Appearance: Well-appearing, No pain distress, Well-nourished Eyes: JASVIR ENT: Ears normal Neck: Supple Respiratory: Airway patent, Breath sounds clear, Breath sounds equal, Respirations nonlabored Cardiovascular: RRR, Pulses normal, No rub, No murmur GI/: Soft Musculoskeletal: Normal strength, ROM intact, No edema, No calf tenderness Skin: Warm Neurological: Alert, Oriented Psychiatric: Affect appropriate, Mood appropriate Interpretation - EKG Interpretation Time of EKG #1: 10:26 Rate: Gm Rhythm: Sinus Ectopy: None [place]: [place] ST Segment: Normal Interpretation: sinus gm Physician Notification - Case Discussed Physician Notified: dr chowdary contacted---indicated they could not do anything else for her Time of Notification: 10:58 Physician Notified: dr fields Time of Notification: 11:17 Critical Care Note - Critical Care Note Total Time (mins): 30 Course - Course Hematology/Chemistry: 04/26/18 10:20 04/26/18 10:20 Orders, Labs, Meds: Lab Review 04/26/18 04/26/18 04/26/18 10:20 10:20 10:20 WBC 3.95 L RBC 4.21 Hgb 12.3 Hct 38.5 MCV 91.4 MCH 29.2 MCHC 31.9 RDW Coeff of Feliberto 12.6 Plt Count 214 Immature Gran % (Auto) 0.5 Neut % (Auto) 56.3 Lymph % (Auto) 27.8 [place] % (Auto) 9.1 Eos % (Auto) 5.3 Baso % (Auto) 1.0 Immature Gran # (Auto) 0.0 Neut # (Auto) 2.2 Lymph # (Auto) 1.1 [place] # (Auto) 0.4 Eos # (Auto) 0.2 Baso # (Auto) 0.0 PT 10.3 INR 1.03 Sodium 135.8 Potassium 3.74 Chloride 102.7 Carbon Dioxide 27.5 Anion Gap 9.34 BUN 17.5 H Creatinine 1.12 Estimated GFR (MDRD) 56.00 BUN/Creatinine Ratio 15.62 Glucose 182.7 H Calcium 8.93 Total Bilirubin 0.79 AST 26.8 ALT 10.7 Alkaline Phosphatase 57.2 Total Protein 7.05 Albumin 4.03 Globulin 3.02 Albumin/Globulin Ratio 1.33 Orders Category Date Time Status EKG-(ED ONLY) Stat CARDIO 04/26/18 10:07 Completed TRANSFER TO OUTSIDE FACILITY .TO [facility] 04/26/18 11:18 Active ([place], [place]) WRITE TRANSFER/SBAR NOTE ONCE CARE 04/26/18 11:18 Active DISCHARGE ASSESSMENT ONCE DISCHARGE 04/26/18 11:18 Active WRITE DISCHARGE NOTE ONCE DISCHARGE 04/26/18 11:18 Active CBC W/ AUTO DIFF Stat LAB 04/26/18 10:20 Completed COMPREHENSIVE METABOLIC PANEL Stat LAB 04/26/18 10:20 Completed PT WITH INR Stat LAB 04/26/18 10:20 Completed Aspirin [Aspirin Chewable] MEDS 04/26/18 11:18 Discontinued 81 mg PO ONCE STA Clopidogrel Bisulfate [Plavix] MEDS 04/26/18 11:19 Discontinued 75 mg PO ONCE STA CT HEAD W/O CONTRAST Stat RADS 04/26/18 10:07 Completed Medications Discontinued Medications Generic Name Dose Route Start Last Admin Trade Name Freq PRN Reason Stop Dose Admin Aspirin 81 mg 04/26/18 11:18 04/26/18 11:30 Aspirin Chewable PO 04/26/18 11:19 81 mg ONCE STA Administration Clopidogrel Bisulfate 75 mg 04/26/18 11:19 04/26/18 11:28 Plavix PO 04/26/18 11:20 75 mg ONCE STA Administration Vital Signs: Temp Pulse Resp BP Pulse Ox 04/26/18 10:06 97.3 F L 58 L 20 143/66 H 96 - NIH Stroke Scale 1a. Level of Consciousness: 0=Alert and keenly responsive 1b. Level of Consciousness Questions: 0=Answers correctly to two questions 1c. Level of Consciousness Commands: 0=Performs two tasks correctly 2. Best Gaze: 0=Normal 3. Visual: 0=No visual loss 4. Facial Palsy: 0=Normal 5a. Motor Left Arm: 0=No drift,arm holds 90 degrees for 10 sec., leg 30 degrees for 5 sec. 5b. Motor Right Arm: 0=No drift,arm holds 90 degrees for 10 sec., leg 30 degrees for 5 sec. 6a. Motor Left Le=No drift,arm holds 90 degrees for 10 sec., leg 30 degrees for 5 sec. 6b. Motor Right Le=No drift,arm holds 90 degrees for 10 sec., leg 30 degrees for 5 sec. 7. Limb Ataxia: 0=Absent 8. Sensory: 0=Normal 9. Best Language: 0=No aphasia 10. Dysarthria: 0=Normal 11. Extincion and Inattention: 0=Normal Stroke Scale Total: 0 Departure - Departure Time of Disposition: 11:17 Disposition: TSF SHORT-TRM HOSP Discharge Problem: TIA (transient ischemic attack) Qualifiers: Transient cerebral ischemia type: unspecified Qualified Code(s): G45.9 - Transient cerebral ischemic attack, unspecified Instructions: Transient Ischemic Attack (ED) Condition: Good Pt referred to PMD for follow-up: Yes IPMP verified?: No Allergies/Adverse Reactions: Allergies No Known Allergies Allergy (Verified 04/26/18 10:26) Home Medications: Ambulatory Orders Clonidine HCl 0.1 mg PO DAILY 06/02/16 Labetalol HCl [Trandate] 100 mg PO BID 06/02/16 Omeprazole [Prilosec] 20 mg PO BIDAC PRN 06/02/16 Amlodipine Besylate [Norvasc] 10 mg PO DAILY #30 tablet 06/10/16 Aspirin [Aspirin EC] 81 mg PO DAILYWM #30 tablet. 06/10/16 Atorvastatin Calcium [Lipitor] 40 mg PO DAILY 04/26/18 Clopidogrel Bisulfate [Plavix] 75 mg PO DAILY 04/26/18 Transfer Form Completed: Yes Disposition Discussed With: Patient
--- NOTE | 2018-04-26 10:47 | CT ---
EXAM: CT head without contrast HISTORY: Stroke COMPARISON: CT angiogram of the head from 2 days prior TECHNIQUE: Helical axial CT of the head was performed without contrast. Coronal and sagittal reconst ructions were performed. FINDINGS: There is again seen high attenuation within the middle cerebral artery on the left consistent with th rombus. There is no evidence however for any evolving ischemia or hemorrhage in the left middle cereb ral artery territory or elsewhere. There is no mass or midline shift or hydrocephalus. The [place]-white matter junction is well maintained. There is a fair amount of atrophy noted and chronic small vesse l ischemia. 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 There is a small lacu dena infarction in the left basal ganglia which is stable and appears old. Brain parenchyma, ventricl es and sulci are otherwise normal. There are no acute calvarial lesions. Visualized orbits and globes are unremarkable. The mastoid ai r cells demonstrate no significant soft tissue opacification. The visualized paranasal sinuses show n o air-fluid levels. There is extremely advanced calcific atherosclerosis seen intracranially. IMPRESSION: 1. 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 2. Senescent changes as noted.
[2018-04-26] MEDS ORDERED: ASPIRIN CHEWABLE PO STA (11:18)
[2018-04-26] MEDS ORDERED: PLAVIX PO STA (11:19)
== END 2018-04-26 11:52 | disposition short-term general hospital (02) ==
LOC: ED 10:06
DX: G45.9 Transient cerebral ischemic attack, unspecified (principal); I10 Essential (primary) hypertension; E11.9 Type 2 diabetes mellitus without complications; Z79.899 Other long term (current) drug therapy
CPT/HCPCS: 36415; 80053; 85025; 85610; 93005; 93010; 99285

== ENCOUNTER 2019-10-22 18:06 | Inpatient (IN) ==
[2019-10-22] MEDS ORDERED: CATAPRES PO STA (18:19)
--- NOTE | 2019-10-22 18:26 | ED.PDOC ---
General <GIRMA ORDONEZ MD - Last Filed: 10/23/19 09:34> ED Provider: Dr. GIRMA ORDONEZ MD Chief Complaint: Hypertension Stated Complaint: elevated blood pressue today, but no symptoms, no chest pain, no NV, no headache, no visual disturbance, pt recently taken off clonidine, asa, labetolol and amlodipine Time Seen by Physician: 18:24 Mode of Arrival: Stretcher Information Source: Patient and EMT Primary Care Provider: JAYMIE ZEPEDA Nursing and Triage Documentation Reviewed and Agree: Yes Does patient meet sepsis criteria?: No System Inflammatory Response Syndrome: Not Applicable Sepsis Protocol: For patient's 13 years and over: Temp is 96.8 and below OR 101 and greater Pulse >90 BPM Resp >20/minute Acutely Altered Mental Status Are patient's symptoms suggestive of a new infection, such as: -Pneumonia -Skin, Soft Tissue -Endocarditis -UTI -Bone, Joint Infection -Implantable Device -Acute Abdominal Infection -Wound Infection -Meningitis -Blood Stream Catheter Infection -Unknown Miscellaneous Complaint Exam <GIRMA ORDONEZ MD - Last Filed: 10/23/19 09:34> Complex/Multi-System Complaint/Exam Onset/Duration: elevated blood pressure Symptoms Are: Still present Initial Severity: Moderate Current Severity: Moderate Location of Pain: no pain Associated Signs and Symptoms: Denies Confusion, Dizziness, Syncope, Headache, Short of air, Chest pain, Edema and Vomiting Review of Systems <GIRMA ORDONEZ MD - Last Filed: 10/23/19 09:34> Review Of Systems Constitutional: Denies Fever Eyes: Denies Blurred vision Ears, Nose, Mouth, Throat: Denies Throat pain Respiratory: Denies Short of air Cardiac: Denies Chest pain GI: Denies Abdominal pain and Vomiting : Denies Burning Musculoskeletal: Denies Back pain and Neck pain Skin: Denies Rash Neurological: Denies Cognitive dysfunction and Headache All Other Systems: Other PFSH <GIRMA ORDONEZ MD - Last Filed: 10/23/19 09:34> Medical History (Updated 10/22/19 @ 20:53 by KAVON PRECIADO RN) Arthritis CVA (cerebral vascular accident) Diabetes GERD (gastroesophageal reflux disease) H/O: hysterectomy HTN (hypertension) Family History (Updated 10/22/19 @ 20:56 by KAVON PRECIADO RN) Mother Cancer of breast, female Hypertension FATHER Hypertension BROTHER Cancer SON Cancer CHF (congestive heart failure) Female Reproductive History Menstrual Hx Hysterectomy: Yes Hx Tubal Ligation: No Physical Exam <GIRMA ORDONEZ MD - Last Filed: 10/23/19 09:34> Physical Exam Appearance: Reports Well-appearing Ill-appearing: None Pain Distress: None Eyes: Reports JASVIR, EOMI and Conjunctiva clear ENT: Reports Oropharynx normal Neck: Supple Respiratory: Reports Airway patent, Breath sounds clear and Breath sounds equal Cardiovascular: Reports RRR GI/: Reports Soft and Nontender Musculoskeletal: Reports ROM intact and No edema Skin: Reports Warm and Dry Neurological: Reports Cranial nerves intact, Alert and Oriented Psychiatric: Reports Affect appropriate Re-Evaluation <GIRMA ORDONEZ MD - Last Filed: 10/23/19 09:34> Re-Evaluation Additional Comments: care to Dr Quintanilla at 19:00 <GERMÁN WOODRUFF MD - Last Filed: 10/22/19 19:33> Critical Care Note Total Time (mins): 30 Course <GIRMA ORDONEZ MD - Last Filed: 10/23/19 09:34> Course Hematology/Chemistry: 10/22/19 18:20 10/22/19 18:20 Orders, Labs, Meds: Lab Review 10/22/19 10/22/19 18:20 18:20 WBC 5.25 RBC 3.74 L Hgb 8.9 L Hct 30.2 L MCV 80.7 L MCH 23.8 L MCHC 29.5 L RDW Coeff of Feliberto 18.2 H Plt Count 253 Immature Gran % (Auto) 0.2 Neut % (Auto) 63.1 Lymph % (Auto) 26.9 Park % (Auto) 6.3 Eos % (Auto) 2.7 Baso % (Auto) 0.8 Neut # (Auto) 3.3 Lymph # (Auto) 1.4 Park # (Auto) 0.3 L Eos # (Auto) 0.1 Baso # (Auto) 0.0 Immature Gran # (Auto) 0.0 Sodium 139.1 Potassium 4.16 Chloride 105.5 Carbon Dioxide 27.7 Anion Gap 10.06 BUN 15.5 Creatinine 0.90 Estimated GFR (MDRD) 71.00 BUN/Creatinine Ratio 17.22 Glucose 158.1 H Calcium 9.28 Total Bilirubin 0.74 AST 33.0 ALT 10.5 Alkaline Phosphatase 70.0 Troponin I 0.020 Total Protein 6.96 Albumin 3.91 Globulin 3.05 Albumin/Globulin Ratio 1.28 Orders Category Date Time Status ADMIT PATIENT INPATIENT .TO [facility] (MONITORED BED) ADMISSION 10/22/19 19:33 Active EKG-(IP & OP ONLY) DAILY CARDIO 10/23/19 06:00 Completed EKG-(IP & OP ONLY) DAILY CARDIO 10/24/19 06:00 Ordered ACTIVITY .BR with BRP CARE 10/22/19 19:33 Active TELEMETRY MONITORING TELE CARE 10/22/19 19:33 Active CARDIAC DIET DIETARY 10/22/19 Breakfast Ordered ED IV/MEDIPORT/POWERPORT .ONCE EMERGENCY 10/22/19 19:36 Active CBC W/ AUTO DIFF DAILY@0600 LAB 10/23/19 06:00 Ordered CBC W/ AUTO DIFF DAILY@0600 LAB 10/24/19 06:00 Ordered CBC W/ AUTO DIFF Stat LAB 10/22/19 18:20 Completed COMPREHENSIVE METABOLIC PANEL DAILY@0600 LAB 10/23/19 06:00 Ordered COMPREHENSIVE METABOLIC PANEL DAILY@0600 LAB 10/24/19 06:00 Ordered COMPREHENSIVE METABOLIC PANEL Stat LAB 10/22/19 18:20 Completed TROPONIN I Stat LAB 10/22/19 18:20 Completed URINALYSIS C & S IF INDICATED Stat LAB 10/22/19 23:09 Completed 0.9 % Sodium Chloride [Saline Flush] MEDS 10/22/19 19:36 Active 1 syr IVF PRN PRN Atorvastatin Calcium [Lipitor] MEDS 10/23/19 09:00 Active 40 mg PO DAILY Clonidine HCl [Catapres] MEDS 10/22/19 18:19 Discontinued 0.1 mg PO ONCE STA Enoxaparin Sodium [Lovenox] MEDS 10/23/19 09:00 Active 40 mg SUBCUT DAILY Labetalol HCl [Trandate] MEDS 10/22/19 19:36 Active 20 mg IVP Q2H PRN Metoprolol Succinate [Toprol Xl] MEDS 10/23/19 09:00 Active 25 mg PO DAILY Nifedipine [Procardia Xl] MEDS 10/22/19 19:17 Discontinued 60 mg PO ONCE STA Pantoprazole Sodium [Protonix] MEDS 10/23/19 09:00 Active 40 mg PO DAILY RESUSCITATION STATUS Routine OTHERS 10/22/19 19:33 Ordered CHEST, 1V AP ONLY Stat RADS 10/22/19 18:19 Completed Medications Generic Name Dose Route Start Last Admin Trade Name Freq PRN Reason Stop Dose Admin Atorvastatin Calcium 40 mg 10/23/19 09:00 Lipitor PO DAILY VINAY Enoxaparin Sodium 40 mg 10/23/19 09:00 Lovenox SUBCUT DAILY VINAY Labetalol HCl 20 mg 10/22/19 19:36 Trandate IVP Q2H PRN Hypertensive Emergency Metoprolol Succinate 25 mg 10/23/19 09:00 Toprol Xl PO DAILY VINAY Pantoprazole Sodium 40 mg 10/23/19 09:00 Protonix PO DAILY VINAY Sodium Chloride 1 syr 10/22/19 19:36 Saline Flush IVF PRN PRN To flush IV Discontinued Medications Generic Name Dose Route Start Last Admin Trade Name Freq PRN Reason Stop Dose Admin Clonidine 0.1 mg 10/22/19 18:19 10/22/19 18:43 Catapres PO 10/22/19 18:20 0.1 mg ONCE STA Administration Nifedipine 60 mg 10/22/19 19:17 10/22/19 19:23 Procardia Xl PO 10/22/19 19:18 60 mg ONCE STA Administration Vital Signs: Temp Pulse Resp BP Pulse Ox 10/22/19 18:08 96.8 F L 72 20 210/100 H 96 <GERMÁN WOODRUFF MD - Last Filed: 10/22/19 19:33> Course Orders, Labs, Meds: Lab Review 10/22/19 10/22/19 18:20 18:20 WBC 5.25 RBC 3.74 L Hgb 8.9 L Hct 30.2 L MCV 80.7 L MCH 23.8 L MCHC 29.5 L RDW Coeff of Feliberto 18.2 H Plt Count 253 Immature Gran % (Auto) 0.2 Neut % (Auto) 63.1 Lymph % (Auto) 26.9 Park % (Auto) 6.3 Eos % (Auto) 2.7 Baso % (Auto) 0.8 Neut # (Auto) 3.3 Lymph # (Auto) 1.4 Park # (Auto) 0.3 L Eos # (Auto) 0.1 Baso # (Auto) 0.0 Immature Gran # (Auto) 0.0 Sodium 139.1 Potassium 4.16 Chloride 105.5 Carbon Dioxide 27.7 Anion Gap 10.06 BUN 15.5 Creatinine 0.90 Estimated GFR (MDRD) 71.00 BUN/Creatinine Ratio 17.22 Glucose 158.1 H Calcium 9.28 Total Bilirubin 0.74 AST 33.0 ALT 10.5 Alkaline Phosphatase 70.0 Troponin I 0.020 Total Protein 6.96 Albumin 3.91 Globulin 3.05 Albumin/Globulin Ratio 1.28 Orders Category Date Time Status ADMIT PATIENT INPATIENT .[facility] ([facility]) ADMISSION 10/22/19 19:33 Active EKG-(IP & OP ONLY) DAILY CARDIO 10/23/19 06:00 Completed EKG-(IP & OP ONLY) DAILY CARDIO 10/24/19 06:00 Ordered ACTIVITY .BR with BRP CARE 10/22/19 19:33 Active TELEMETRY MONITORING TELE CARE 10/22/19 19:33 Active CARDIAC DIET DIETARY 10/22/19 Breakfast Ordered ED IV/MEDIPORT/POWERPORT .ONCE EMERGENCY 10/22/19 19:36 Active CBC W/ AUTO DIFF DAILY@0600 LAB 10/23/19 06:00 Ordered CBC W/ AUTO DIFF DAILY@0600 LAB 10/24/19 06:00 Ordered CBC W/ AUTO DIFF Stat LAB 10/22/19 18:20 Completed COMPREHENSIVE METABOLIC PANEL DAILY@0600 LAB 10/23/19 06:00 Ordered COMPREHENSIVE METABOLIC PANEL DAILY@0600 LAB 10/24/19 06:00 Ordered COMPREHENSIVE METABOLIC PANEL Stat LAB 10/22/19 18:20 Completed TROPONIN I Stat LAB 10/22/19 18:20 Completed URINALYSIS C & S IF INDICATED Stat LAB 10/22/19 23:09 Completed 0.9 % Sodium Chloride [Saline Flush] MEDS 10/22/19 19:36 Active 1 syr IVF PRN PRN Atorvastatin Calcium [Lipitor] MEDS 10/23/19 09:00 Active 40 mg PO DAILY Clonidine HCl [Catapres] MEDS 10/22/19 18:19 Discontinued 0.1 mg PO ONCE STA Enoxaparin Sodium [Lovenox] MEDS 10/23/19 09:00 Active 40 mg SUBCUT DAILY Labetalol HCl [Trandate] MEDS 10/22/19 19:36 Active 20 mg IVP Q2H PRN Metoprolol Succinate [Toprol Xl] MEDS 10/23/19 09:00 Active 25 mg PO DAILY Nifedipine [Procardia Xl] MEDS 10/22/19 19:17 Discontinued 60 mg PO ONCE STA Pantoprazole Sodium [Protonix] MEDS 10/23/19 09:00 Active 40 mg PO DAILY RESUSCITATION STATUS Routine OTHERS 10/22/19 19:33 Ordered CHEST, 1V AP ONLY Stat RADS 10/22/19 18:19 Completed Medications Generic Name Dose Route Start Last Admin Trade Name Freq PRN Reason Stop Dose Admin Atorvastatin Calcium 40 mg 10/23/19 09:00 Lipitor PO DAILY VINAY Enoxaparin Sodium 40 mg 10/23/19 09:00 Lovenox SUBCUT DAILY VINAY Labetalol HCl 20 mg 10/22/19 19:36 Trandate IVP Q2H PRN Hypertensive Emergency Metoprolol Succinate 25 mg 10/23/19 09:00 Toprol Xl PO DAILY VINAY Pantoprazole Sodium 40 mg 10/23/19 09:00 Protonix PO DAILY VINAY Sodium Chloride 1 syr 10/22/19 19:36 Saline Flush IVF PRN PRN To flush IV Discontinued Medications Generic Name Dose Route Start Last Admin Trade Name Freq PRN Reason Stop Dose Admin Clonidine 0.1 mg 10/22/19 18:19 10/22/19 18:43 Catapres PO 10/22/19 18:20 0.1 mg ONCE STA Administration Nifedipine 60 mg 10/22/19 19:17 10/22/19 19:23 Procardia Xl PO 10/22/19 19:18 60 mg ONCE STA Administration Vital Signs: Temp Pulse Resp BP Pulse Ox 10/22/19 18:08 96.8 F L 72 20 210/100 H 96 Discharge Plan Discharge Patient Disposition: ADMITTED INPATIENT Discharge Problem: Hypertensive urgency ED Provider: GIRMA ORDONEZ Condition: Fair Discharge Date/Time: 10/22/19 20:09
[2019-10-22 18:47] LABS: HEMATOCRIT 30.2 % (37.0-47.0)
[2019-10-22] MEDS ORDERED: PROCARDIA XL PO STA (19:17)
--- NOTE | 2019-10-22 20:16 | DI ---
EXAM: Single view chest. HISTORY: Elevated blood pressure, cough COMPARISON: 02/26/2013. FINDINGS: Moderate enlargement the heart is seen. Pulmonary vascularity is within normal limits. No focal airspace opacity or pleural effusion is seen. Right shoulder total arthroplasty is seen. Bon es appear diffusely demineralized. IMPRESSION: Moderate cardiomegaly without pulmonary edema.
[2019-10-22 20:35] VITALS: BMI 30.2
[2019-10-23 09:43] LABS: HEMATOCRIT 29.9 % (37.0-47.0)
[2019-10-23] MEDS: LOVENOX SUBCUT SCH (10:36)
[2019-10-23] MEDS: LIPITOR PO SCH (10:41)
[2019-10-23] MEDS: PROTONIX PO SCH (10:42)
[2019-10-23] MEDS: TOPROL XL PO SCH (10:42)
[2019-10-24] MEDS: TRANDATE IVP PRN ×2 (05:32→23:48)
[2019-10-24 05:40] LABS: HEMATOCRIT 28.9 % (37.0-47.0)
[2019-10-24] MEDS: TOPROL XL PO SCH ×2 (08:11→20:59)
[2019-10-24] MEDS: LIPITOR PO SCH (08:11)
[2019-10-24] MEDS: PROTONIX PO SCH (08:11)
[2019-10-24] MEDS: LOVENOX SUBCUT SCH (08:12)
[2019-10-24] MEDS ORDERED: HYZAAR 50-12.5 MG TAB PO SCH (14:00)
[2019-10-25] MEDS: TRANDATE IVP PRN (02:22)
[2019-10-25 05:02] LABS: HEMATOCRIT 29.6 % (37.0-47.0)
[2019-10-25] MEDS ORDERED: PROCARDIA XL PO STA (06:27)
--- NOTE | 2019-10-25 08:53 | PCM.PROG ---
Attending Provider: ATTENDING PROVIDER: Dr. JAYMIE ZEPEDA This patient is seen with Reina tSubbs, Nurse Practitioner. DATE OF SERVICE: 10/25/19 SUBJECTIVE: This 89 year old AA/BLACK F was hospitalized 10/22/19. The patient is resting comfortably. Blood pressure is significantly elevated throughout the night up to systolic 196. IV sight was lost. Heart rate is running 50-70. She is alert and oriented. REVIEW OF SYSTEMS: CONSTITUTIONAL: No night sweats. No fatigue, malaise, lethargy. No fever or chills. Weakness. HEENT: Eyes: No visual changes. No eye pain. No eye discharge. ENT: No runny nose. No epistaxis. No sinus pain. No odynophagia. No congestion. RESPIRATORY: No cough, no congestion. No hemoptysis. No shortness of breath. CARDIOVASCULAR: No angina symptoms. No CHF symptoms. No atypical chest pain for CAD. No palpitations. No orthopnea.. GASTROINTESTINAL: No abdominal pain. No nausea or vomiting. No diarrhea or constipation. No hematemesis. No hematochezia. GENITOURINARY: No urgency. No frequency. No dysuria. No hematuria. No obstructive symptoms. No discharge. No pain. No significant abnormal bleeding. MUSCULOSKELETAL: No musculoskeletal pain; no joint swelling. NEUROLOGICAL: Awake, alert, oriented to time, place and person. No headache. No neck pain. No syncope. No seizures. No dizziness. PSYCHIATRIC: Not anxious. No depression. No suicidal thoughts. No homicidal thoughts. SKIN: No rash. No lesions. No wounds. ENDOCRINE: No unexplained weight loss. No weight gain. HEMATOLOGIC/LYMPHATIC: No anemia. No purpura. No petechiae. No prolonged or ex cessive bleeding. No palpable lymph nodes. PHYSICAL EXAMINATION: GENERAL: The patient is awake, alert and oriented, lying in bed in no distress. VITAL SIGNS: Temperature 98.3 F, Pulse 60, Respiratory Rate 19, BP 156/92, Pulse Ox 95% HEENT: Head normocephalic, atraumatic. Eyes: Extraocular muscles are intact. Pupils are equal, round and reactive to light and accommodation. Ears: No lesions. Nose appeared normal. Throat: No exudate or erythema. NECK: Supple. No JVD, no carotid bruit. No lymphadenopathy or thyromegaly. LUNGS: Diminished breath sounds. Clear to auscultation. Percussion note normal. Chest symmetrical. HEART: S1, S2, no S3. No murmurs. No cyanosis or clubbing. No ascites. Pulses: Dorsalis pedis and posterior tibial pulses +1 to +2 both sides. ABDOMEN: Soft. Non-tender. Bowel sounds active. No CVA tenderness. No mass felt. EXTREMITIES: No edema. Full range of motion of all extremities, equal. NEUROLOGIC: No focal deficit. Cranial nerves II through XII are grossly intact. No headache, no double vision or headache. SKIN: Not dry. Intact. Turgor-normal. LYMPHATIC: No palpable lymph nodes/no lymphedema. MUSCULOSKELETAL: Normal joints with no swelling. Muscle tone is normal. LAB REVIEW: 10/25/19 04:34 10/25/19 04:34 10/25/19 04:34: Sodium 136.3, Potassium 3.74, Chloride 102.2, Carbon Dioxide 28.9, Anion Gap 8.94, BUN 15.6, Creatinine 0.99, Estimated GFR (MDRD) 64.00, BUN/Creatinine Ratio 15.75, Glucose 106.3 H, Calcium 9.03, Total Bilirubin 0.74, AST 30.2, ALT 10.3, Alkaline Phosphatase 67.8, Total Protein 6.68, Albumin 3.74, Globulin 2.94, Albumin/Globulin Ratio 1.27 10/25/19 04:34: WBC 5.09, RBC 3.66 L, Hgb 8.5 L, Hct 29.6 L, MCV 80.9 L, MCH 23.2 L, MCHC 28.7 L, RDW Coeff of Feliberto 17.9 H, Plt Count 235, Immature Gran % (Auto) 0.2, Neut % (Auto) 57.4, Lymph % (Auto) 31.6, Pettis % (Auto) 7.1, Eos % (Auto) 3.1, Baso % (Auto) 0.6, Neut # (Auto) 2.9, Lymph # (Auto) 1.6, Pettis # (Auto) 0.4, Eos # (Auto) 0.2, Baso # (Auto) 0.0, Immature Gran # (Auto) 0.0, Hypochromasia 2+, Anisocytosis Not present, Stomatocytes 1+ ASSESSMENT: Please see below. 1. Hypertensive emergency 2. Chronic anemia 3. History of GI bleed 4. GERD PLAN: 1. Will add Norvasc after repeat blood pressure 2. Losartan 100/12.5mg Plan and coordination of the patient's care discussed in the presence of Lumpia Wrapper Maker and nurse. SCRIBED BY: TALA VARELA Architectural Inspector scribed while in presence of service performed by Dr. Zepeda/Reina Stubbs APRN on 10/25/19 ([id number])
[2019-10-25] MEDS: HYDROCHLOROTHIAZIDE PO SCH (09:28)
[2019-10-25] MEDS: LIPITOR PO SCH (09:28)
[2019-10-25] MEDS: TOPROL XL PO SCH (09:28)
[2019-10-25] MEDS: PROTONIX PO SCH (09:28)
[2019-10-25] MEDS: COZAAR PO SCH (09:28)
[2019-10-25] MEDS: LOVENOX SUBCUT SCH (09:29)
--- NOTE | 2019-10-25 13:12 | PN ---
DATE OF SERVICE: 10/24/2019 SUBJECTIVE: 89 year old black female hospitalized with severe hypertension. The patient's hypertension is more or less under control. The patient's rest of the symptoms are negative. She gets palpation and short of breath on exertion according to her otherwise no symptoms of CHF like orthopnea or PND. She doesn't have angina type of symptoms either. REVIEW OF SYSTEMS: CONSTITUTIONAL: No night sweats. No fatigue, malaise, lethargy. No fever or chills. HEENT: Eyes: No visual changes. No eye pain. No eye discharge. ENT: No runny nose. No epistaxis. No sinus pain. No sore throat. No odynophagia. No congestion. RESPIRATORY: No cough, no congestion. No hemoptysis. No shortness of breath. CARDIOVASCULAR: No angina symptoms. No CHF symptoms. No atypical chest pain for CAD. No palpitations. No PND. No orthopnea. GASTROINTESTINAL: No abdominal pain. No nausea or vomiting. No diarrhea or constipation. No hematemesis. No hematochezia. GENITOURINARY: No urgency. No frequency. No dysuria. No hematuria. No obstructive symptoms. No discharge. No pain. No significant abnormal bleeding. MUSCULOSKELETAL: No musculoskeletal pain; no joint swelling. NEUROLOGICAL: No headache. No neck pain. No syncope. No seizures. No dizziness. PSYCHIATRIC: Not anxious. No depression. No suicidal thoughts. No homicidal thoughts. SKIN: No rash. No lesions. No wounds. ENDOCRINE: No unexplained weight loss. No weight gain. HEMATOLOGIC/LYMPHATIC: No anemia. No purpura. No petechiae. No prolonged or excessive bleeding. No palpable lymph nodes. PHYSICAL EXAMINATION: VITAL SIGNS: Temperature 98.5, pulse 69, respiratory rate 18, blood pressure 170/78 and pulse ox 95%. HEENT: Head normocephalic, atraumatic. Eyes: Extraocular muscles are intact. Pupils are equal, round and reactive to light and accommodation. Ears: No lesions. Nose appeared normal. Throat: No exudate or erythema. NECK: Supple. No JVD, no carotid bruit. No lymphadenopathy or thyromegaly. LUNGS: Decreased breath sounds but clear to auscultation. Percussion note normal. Chest symmetrical. HEART: S1, S2, no S3. No murmurs. No cyanosis or clubbing. No ascites. Pulses: Dorsalis pedis and posterior tibial pulses +1 to +2 bilaterally. ABDOMEN: Soft. Nontender. Bowel sounds active. No CVA tenderness. No mass felt. EXTREMITIES: No edema. Full range of motion of all extremities, equal. NEUROLOGIC: No focal deficit. Cranial nerves II through XII are grossly intact. No headache, no double vision or headache. SKIN: Not dry. Intact. Turgor - normal. LYMPHATIC: No palpable lymph nodes/no lymphedema. MUSCULOSKELETAL: Normal joints with no swelling. Muscle tone is normal. LABS: Hgb 8.4, hct 28, WBC 4,000 normal differential, creatinine 0.9, BUN 13, potassium 3.7. ASSESSMENT: 1. Hypertension 2. Anemia, chronic 3. Dyslipidemia 4. Gastroesophageal reflux disease PLAN: 1. Put the patient on Losartan/Hydrochlorothiazide 50-12.5mg PO daily 2. Increase the Metoprolol to 25mg twice a day 3. We may do echo to evaluate LV function CONDITION: Stable. TIME SPENT: More than 30 minutes. Plan and coordination of the patient's care discussed in the presence of nurse. PABLITO
[2019-10-25] MEDS ORDERED: NORVASC PO PRN (15:12)
--- NOTE | 2019-10-25 15:52 | DI ---
EXAM: Chest two views HISTORY: Low oxygen saturation COMPARISON: 10/22/2019 TECHNIQUE: Two views of the chest were performed FINDINGS: Possible mild pulmonary vascular congestion. There is no pleural effusion or pneumothorax . The heart is enlarged in size. The mediastinal contour is unchanged. There are no acute abnormal ities of the bones. Right shoulder arthroplasty. IMPRESSION: Cardiomegaly with possible mild pulmonary vascular congestion.
[2019-10-25] MEDS ORDERED: LASIX IVP STA (15:57)
[2019-10-25] MEDS ORDERED: LASIX TAB PO STA ×2 (16:45→16:48)
[2019-10-25] MEDS: TRANDATE PO SCH (21:12)
[2019-10-26 05:25] LABS: HEMATOCRIT 27.9 % (37.0-47.0)
[2019-10-26] MEDS: PROTONIX PO SCH (05:37)
[2019-10-26] MEDS ORDERED: LASIX TAB PO STA (08:30)
[2019-10-26] MEDS: HYDROCHLOROTHIAZIDE PO SCH (09:21)
[2019-10-26] MEDS: TRANDATE PO SCH ×2 (09:21→21:10)
[2019-10-26] MEDS: COZAAR PO SCH (09:21)
--- NOTE | 2019-10-26 09:38 | PCM.PROG ---
Attending Provider: ATTENDING PROVIDER: Dr. JAYMIE ZEPEDA This patient is seen with Reina Stubbs, Nurse Practitioner. DATE OF SERVICE: 10/26/19 SUBJECTIVE: This 89 year old AA/BLACK F was hospitalized 10/22/19. 96% on room air this morning. Chest x-ray yesterday showed mild vascular congestion. 1700 out yesterday which was increased. She is sitting up in bed alert. Blood pressure improved. REVIEW OF SYSTEMS: CONSTITUTIONAL: Weakness. No night sweats. No fatigue, malaise, lethargy. No fever or chills. HEENT: Eyes: No visual changes. No eye pain. No eye discharge. ENT: No runny nose. No epistaxis. No sinus pain. No odynophagia. No congestion. RESPIRATORY: No cough, no congestion. No hemoptysis. No shortness of breath. CARDIOVASCULAR: No angina symptoms. No CHF symptoms. No atypical chest pain for CAD. No palpitations. No orthopnea.. GASTROINTESTINAL: No abdominal pain. No nausea or vomiting. No diarrhea or constipation. No hematemesis. No hematochezia. GENITOURINARY: No urgency. No frequency. No dysuria. No hematuria. No obstructive symptoms. No discharge. No pain. No significant abnormal bleeding. MUSCULOSKELETAL: No musculoskeletal pain; no joint swelling. NEUROLOGICAL: Awake, alert, oriented to time, place and person. No headache. No neck pain. No syncope. No seizures. No dizziness. PSYCHIATRIC: Not anxious. No depression. No suicidal thoughts. No homicidal thoughts. SKIN: No rash. No lesions. No wounds. ENDOCRINE: No unexplained weight loss. No weight gain. HEMATOLOGIC/LYMPHATIC: No anemia. No purpura. No petechiae. No prolonged or excessive bleeding. No palpable lymph nodes. PHYSICAL EXAMINATION: GENERAL: The patient is awake, alert and oriented, lying/sitting in bed in no distress. VITAL SIGNS: Temperature 97.8 F, Pulse 64, Respiratory Rate 16, BP 136/73, Pulse Ox 96% HEENT: Head normocephalic, atraumatic. Eyes: Extraocular muscles are intact. Pupils are equal, round and reactive to light and accommodation. Ears: No lesions. Nose appeared normal. Throat: No exudate or erythema. NECK: Supple. No JVD, no carotid bruit. No lymphadenopathy or thyromegaly. LUNGS: Diminished breath sounds. Creps bilaterally, left greater than right. Percussion note normal. Chest symmetrical. HEART: S1, S2, no S3. No murmurs. No cyanosis or clubbing. No ascites. Pulses: Dorsalis pedis and posterior tibial pulses +1 to +2 both sides. ABDOMEN: Soft. Non-tender. Bowel sounds active. No CVA tenderness. No mass felt. EXTREMITIES: No edema. Full range of motion of all extremities, equal. NEUROLOGIC: No focal deficit. Cranial nerves II through XII are grossly intact. No headache, no double vision or headache. SKIN: Not dry. Intact. Turgor-normal. LYMPHATIC: No palpable lymph nodes/no lymphedema. MUSCULOSKELETAL: Normal joints with no swelling. Muscle tone is normal. LAB REVIEW: 10/26/19 05:20 10/26/19 05:20 10/26/19 05:20: Sodium 135.9, Potassium 3.86, Chloride 101.8, Carbon Dioxide 29.1, Anion Gap 8.86, BUN 22.6 H, Creatinine 1.08, Estimated GFR (MDRD) 58.00, BUN/Creatinine Ratio 20.92, Glucose 105.7, Calcium 8.47, Total Bilirubin 0.64, AST 29.1, ALT 9.9, Alkaline Phosphatase 57.7, Total Protein 6.20 L, Albumin 3.46 L, Globulin 2.74, Albumin/Globulin Ratio 1.26 10/26/19 05:20: WBC 4.71, RBC 3.43 L, Hgb 8.1 L, Hct 27.9 L, MCV 81.3, MCH 23.6 L, MCHC 29.0 L, RDW Coeff of Feliberto 18.3 H, Plt Count 227, Immature Gran % (Auto) 0.2, Neut % (Auto) 51.3, Lymph % (Auto) 32.9, Perry % (Auto) 10.6 H, Eos % (Auto) 4.2, Baso % (Auto) 0.8, Neut # (Auto) 2.4, Lymph # (Auto) 1.6, Perry # (Auto) 0.5, Eos # (Auto) 0.2, Baso # (Auto) 0.0, Immature Gran # (Auto) 0.0 10/25/19 16:24: Puncture Site Rb, O2 Saturation 89.0 L, ABG pH 7.405, ABG pCO2 44.6, ABG pO2 56.0 L*, ABG HCO3 27.9 H, ABG Total CO2 29 H, ABG Base Excess 3 H, FiO2 % 21.0 ASSESSMENT: Please see below. 1. Hypertensive emergency - controlled 2. Chronic anemia 3. History of GI bleed 4. GERD 5. Vascular congestion improved PLAN: 1. Lasix 20 mg p.o. 2. Two units of PRBCs. Plan and coordination of the patient's care discussed in the presence of Robot Designer and nurse. CONDITION: Stable SCRIBED BY: KAVON CRISTINA Pitting Machine Operator scribed while in presence of service performed by Dr. Zepeda/Reina Stubbs APRN on 10/26/19 ([id number])
--- NOTE | 2019-10-26 09:51 | PN ---
DATE OF SERVICE: 10/22/19 ADMIT NOTE SUBJECTIVE: This 89-year-old female was brought to the emergency room by family because of severe hypertension. The patient's blood pressure was systolic more than 200 with diastolic of 110. The patient was given Clonidine with not much response. Later on was given Procardia. Now she is hospitalized with severe hypertension. The patient gives history of having been hospitalized at one of the [facility], she doesn't remember what exactly was the problem, what was done or medications were changed. Ever since then the patient's blood pressure has been staying up. All the lab tests were practically unremarkable. REVIEW OF SYSTEMS: CONSTITUTIONAL: No night sweats. No fatigue, malaise, lethargy. No fever or chills. HEENT: Eyes: No visual changes. No eye pain. No eye discharge. ENT: No runny nose. No epistaxis. No sinus pain. No sore throat. No odynophagia. No congestion. RESPIRATORY: No cough, no congestion. No hemoptysis. No shortness of breath. CARDIOVASCULAR: No angina symptoms. No CHF symptoms. No atypical chest pain for CAD. No palpitations. No PND. No orthopnea. GASTROINTESTINAL: No abdominal pain. No nausea or vomiting. No diarrhea or constipation. No hematemesis. No hematochezia. GENITOURINARY: No urgency. No frequency. No dysuria. No hematuria. No obstructive symptoms. No discharge. No pain. No significant abnormal bleeding. MUSCULOSKELETAL: No musculoskeletal pain; no joint swelling. NEUROLOGICAL: No headache. No neck pain. No syncope. No seizures. No dizziness. PSYCHIATRIC: Not anxious. No depression. No suicidal thoughts. No homicidal thoughts. SKIN: No rash. No lesions. No wounds. ENDOCRINE: No unexplained weight loss. No weight gain. HEMATOLOGIC/LYMPHATIC: No anemia. No purpura. No petechiae. No prolonged or excessive bleeding. No palpable lymph nodes. PHYSICAL EXAMINATION: HEENT: Head normocephalic, atraumatic. Eyes: Extraocular muscles are intact. Pupils are equal, round and reactive to light and accommodation. Ears: No lesions. Nose appeared normal. Throat: No exudate or erythema. NECK: Supple. No JVD, no carotid bruit. No lymphadenopathy or thyromegaly. LUNGS: Clear to auscultation. Percussion note normal. Chest symmetrical. HEART: S1, S2, no S3. No murmurs. No cyanosis or clubbing. No ascites. Pulses: Dorsalis pedis and posterior tibial pulses +1 to +2 bilaterally. ABDOMEN: Soft. Nontender. Bowel sounds active. No CVA tenderness. No mass felt. EXTREMITIES: No edema. Full range of motion of all extremities, equal. NEUROLOGIC: No focal deficit. Cranial nerves II through XII are grossly intact. No headache, no double vision or headache. SKIN: Not dry. Intact. Turgor - normal. LYMPHATIC: No palpable lymph nodes/no lymphedema. MUSCULOSKELETAL: Normal joints with no swelling. Muscle tone is normal. ASSESSMENT: 1. Severe hypertension. PLAN: 1. Restart her on all of her previous medications. 2. May have to give Vasotec IV 1.25 q.6 for systolic blood pressure of more than 150. TIME SPENT: More than 30 minutes. Plan and coordination of the patient's care discussed in the presence of nurse. PABLITO
[2019-10-26] MEDS: LIPITOR PO SCH (09:58)
[2019-10-26] MEDS: LOVENOX SUBCUT SCH (09:59)
--- NOTE | 2019-10-26 10:57 | HP ---
DATE OF SERVICE: 10/22/19 HISTORY OF PRESENT ILLNESS: 89-year-old bro female hospitalized with hypertensive urgency. The patient's blood pressure is 136/67. PAST MEDICAL HISTORY: Hypertension Dyslipidemia Reflux disease PAST SURGICAL HISTORY: Hysterectomy and tubal ligation REVIEW OF SYSTEMS: CONSTITUTIONAL: No night sweats. No fatigue, malaise, lethargy. No fever or chills. HEENT: Eyes: No visual changes. No eye pain. No eye discharge. ENT: No runny nose. No epistaxis. No sinus pain. No sore throat. No odynophagia. No ear pain. No congestion. RESPIRATORY: No cough, no congestion. No hemoptysis. No shortness of breath. CARDIOVASCULAR: No angina symptoms. No CHF symptoms. No atypical chest pain for CAD. No palpitations. No PND. No orthopnea. GASTROINTESTINAL: No abdominal pain. No nausea or vomiting. No diarrhea or constipation. No hematemesis. No hematochezia. GENITOURINARY: No urgency. No frequency. No dysuria. No hematuria. No obstructive symptoms. No discharge. No pain. No significant abnormal bleeding. MUSCULOSKELETAL: No musculoskeletal pain. No joint swelling. No arthritis. NEUROLOGICAL: No headache. No neck pain. No syncope. No seizures. No dizziness. PSYCHIATRIC: Not anxious. No depression. No suicidal thoughts. No homicidal thoughts. SKIN: No rash. No lesions. No wounds. ENDOCRINE: No unexplained weight loss. No weight gain. HEMATOLOGIC/LYMPHATIC: No anemia. No purpura. No petechiae. No prolonged or excessive bleeding. No palpable lymph nodes. PERSONAL/FAMILY/SOCIAL HISTORY: The patient is , lives at home. She does practically all activities of daily living. Oriented to time, place and person. Nonsmoker. No alcohol abuse. Family History: The patient's mother had CA of the breast. Father had hypertension. Brother had cancer, unknown. Son has cancer and congestive heart failure. MEDICATIONS: Atorvastatin Metoprolol Pantoprazole ALLERGIES: NKDA PHYSICAL EXAMINATION: GENERAL: The patient is oriented to time, place and person. VITAL SIGNS: Temperature 99, pulse 68, respiratory rate 18, BP 130/67, pulse ox 94%. HEENT: Head normocephalic, atraumatic. Eyes: Extraocular muscles are intact. Pupils are equal, round and reactive to light and accommodation. Ears: No lesions. Nose appeared normal. Throat: No exudate or erythema. NECK: Supple. No JVD, no carotid bruit. No lymphadenopathy or thyromegaly. LUNGS: Decreased breath sounds but clear to auscultation. Percussion note normal. Chest symmetrical. HEART: S1, S2, no S3. No murmur. No cyanosis or clubbing. No ascites. Pulses: Dorsalis pedis and posterior tibial pulses +1 to +2 bilaterally. ABDOMEN: Soft. Nontender. Bowel sounds active. No CVA tenderness. No mass felt. EXTREMITIES: No edema. Full range of motion of all extremities, equal. NEUROLOGIC: No focal deficit. Cranial nerves II through XII are grossly intact. No headache, no double vision or headache. SKIN: Not dry. Intact. Turgor - normal. LYMPHATIC: No palpable lymph nodes/no lymphedema. MUSCULOSKELETAL: Normal joints with no swelling. Muscle tone is normal. LABS: Hemoglobin 8.9, hematocrit 30, WBC 5,200, normal differential. Creatinine 0.9, BUN 15, potassium 4.1. ASSESSMENT: 1. Severe hypertension. 2. History of CVA. 3. Hypertension. 4. Dyslipidemia. 5. Diabetes. 6. Gastroesophageal reflux disease. 7. Status post hysterectomy. PLAN: 1. Labetalol 20 mg IV 2. Toprol to be continued. 3. Nifedipine 60 mg was given orally. 4. Clonidine 2.1 to be used for blood pressure over 150. 5. The patient's EKG sinus rhythm, LVH. Will also do echocardiogram before discharge if needed for evaluation of LV function. 6. The patient is advised no salt diet - DASH diet discussed. 7. Goal of blood pressure explained to the patient should be 135/85 or under. CONDITION: Stable. TIME SPENT: More than 70 minutes. MTDD
--- NOTE | 2019-10-26 11:00 | PN ---
DATE OF SERVICE: 10/25/2019 SUBJECTIVE: The patient was seen and examined with the Nurse Practitioner. In the morning the patient's blood pressure seems to be under control. Several modifications in the medication is going to be made. This afternoon Alma Del Real's saturation dropped to 77%. It was all of a sudden it could have been an error. In any case the patient was made upright. EKG was done which was sinus rhythm with no acute changes noted. Her pulse was 75 per minute. Blood pressure was 130/70. There was no chest pain, no PND or orthopnea. The patient's chest x-ray showed possibility of venous congestion. IV Lasix 20mg given. The patient's arterial blood gasses with pO2 of 56, pCO2 of 36 with normal pH with 90% saturation was noted. She is put on 2 liters. The patient's physical exam was unremarkable with normal calf muscles. No tenderness noted. TIME SPENT: More than 35-40 minutes. CODE: Extensive Plan and coordination of the patient's care discussed in the presence of nurse. PABLITO
--- NOTE | 2019-10-26 11:13 | PN ---
DATE OF SERVICE: 10/23/19 SUBJECTIVE: 89-year-old white female hospitalized with severe hypertension. The patient's condition has improved. She is feeling a lot better. REVIEW OF SYSTEMS: CONSTITUTIONAL: No night sweats. No fatigue, malaise, lethargy. No fever or chills. HEENT: Eyes: No visual changes. No eye pain. No eye discharge. ENT: No runny nose. No epistaxis. No sinus pain. No sore throat. No odynophagia. No congestion. RESPIRATORY: No cough, no congestion. No hemoptysis. No shortness of breath. CARDIOVASCULAR: No angina symptoms. No CHF symptoms. No atypical chest pain for CAD. No palpitations. No PND. No orthopnea. GASTROINTESTINAL: No abdominal pain. No nausea or vomiting. No diarrhea or constipation. No hematemesis. No hematochezia. GENITOURINARY: No urgency. No frequency. No dysuria. No hematuria. No obstructive symptoms. No discharge. No pain. No significant abnormal bleeding. MUSCULOSKELETAL: No musculoskeletal pain; no joint swelling. NEUROLOGICAL: No headache. No neck pain. No syncope. No seizures. No dizziness. PSYCHIATRIC: Not anxious. No depression. No suicidal thoughts. No homicidal thoughts. SKIN: No rash. No lesions. No wounds. ENDOCRINE: No unexplained weight loss. No weight gain. HEMATOLOGIC/LYMPHATIC: No anemia. No purpura. No petechiae. No prolonged or excessive bleeding. No palpable lymph nodes. PHYSICAL EXAMINATION: HEENT: Head normocephalic, atraumatic. Eyes: Extraocular muscles are intact. Pupils are equal, round and reactive to light and accommodation. Ears: No lesions. Nose appeared normal. Throat: No exudate or erythema. NECK: Supple. No JVD, no carotid bruit. No lymphadenopathy or thyromegaly. LUNGS: Clear to auscultation. Percussion note normal. Chest symmetrical. HEART: S1, S2, no S3. No murmurs. No cyanosis or clubbing. No ascites. Pulses: Dorsalis pedis and posterior tibial pulses +1 to +2 bilaterally. ABDOMEN: Soft. Nontender. Bowel sounds active. No CVA tenderness. No mass felt. EXTREMITIES: No edema. Full range of motion of all extremities, equal. NEUROLOGIC: No focal deficit. Cranial nerves II through XII are grossly intact. No headache, no double vision or headache. SKIN: Not dry. Intact. Turgor - normal. LYMPHATIC: No palpable lymph nodes/no lymphedema. MUSCULOSKELETAL: Normal joints with no swelling. Muscle tone is normal. ASSESSMENT: 1. Hypertension seems to be under control. PLAN: 1. Continue to give Clonidine 0.1. 2. Will add Norvasc 5mg at h.s. 3. Continue the rest of the medications. 4. Metoprolol and Cozaar are not the choice. 5. Discussed hypertension in detail. 6. Low salt -DASH diet discussed with the patient. CONDITION: Stable. TIME SPENT: More than 30 minutes. Plan and coordination of the patient's care discussed in the presence of nurse. PABLITO
--- NOTE | 2019-10-26 13:55 | PN ---
DATE OF SERVICE: 10/26/19 SUBJECTIVE: The patient is feeling a lot better. Oxygen saturation is 97% on room air. The patient has anemia with hemoglobin of 8.1. The patient has no evidence of active GI bleed. Will give her a couple units of packed red cells because she is symptomatic with shortness of breath and fatigue. Very likely had LVF yesterday. She responded to IV Lasix with changing her medications. She is on Labetalol at nighttime. She had an echocardiogram done today which showed moderate LVH with enlarged LA cavity with normal LV contractility. She is seen and examined with nurse practitioner. Condition: Stable. TIME SPENT: More than 30 minutes. Plan and coordination of the patient's care discussed in the presence of nurse. PABLITO
--- NOTE | 2019-10-26 14:10 | ECHO2D ---
Date of Exam: 10/26/19 Ordering Physician: DR. JAYMIE ZEPEDA Room #: 115 Reason for Echo: SOB, HX V TACH M-Mode Normal Adult Results LV Dimensions Normal Adult Results AoV Opening excursions >1.6 >1.6 LVEDD-base- 3.5-5.8 5.1 Ao root dimensions 2.0-3.7 3.2 LVESD-base- 3.1-4.6 L. Atrium dimensions 1.9-3.8 4.5 Post. Wall thickness 0.8-1.1 1.4 IV septum (thickness) 0.7-1.2 1.5 Post. Wall excursion 0.72-1.3 NORMAL Septal motion NORMAL Systolic motion R. Ventricular cavity 1.5-2.0 NORMAL LVEF 60% 68% Paradoxical septal wall motion NORMAL 2-D : 2-D M Mode Echocardiogram was performed using apical four chamber and left parasternal long and short axis views. Mitral, tricuspid and aortic valves appear to be normal. Contractility of the left ventricle seems to be normal, so is the cavity size. ENLARGED LEFT ATRIAL CAVITY SIZE. Aortic root appears to be normal. There is no pericardial effusion. There is no thrombus noted in the left ventricle or left atrial cavity. No mitral valve prolapse noted. M-MODE: MV: NORMAL AV: NORMAL TV: NORMAL PV: CHAMBER SIZE: ENLARGED LEFT ATRIAL CAVITY WALL MOTION: NORMAL PERICARDIUM: NORMAL INTERPRETATION: 1. LEFT VENTRICULAR HYPERTROPHY MODERATE WITH ENLARGED LEFT ATRIAL CAVITY 2. NORMAL LEFT VENTRICULAR CONTRACTILITY 3. NORMAL VALVES MTDD
[2019-10-26] MEDS: NORVASC PO SCH (21:10)
[2019-10-27 05:56] LABS: HEMATOCRIT 33.2 % (37.0-47.0)
[2019-10-27] MEDS: PROTONIX PO SCH (06:00)
[2019-10-27] MEDS: COZAAR PO SCH (08:07)
[2019-10-27] MEDS: TRANDATE PO SCH ×2 (08:07→20:33)
[2019-10-27] MEDS: HYDROCHLOROTHIAZIDE PO SCH (08:07)
[2019-10-27] MEDS: LIPITOR PO SCH (08:08)
[2019-10-27] MEDS: LOVENOX SUBCUT SCH (08:09)
--- NOTE | 2019-10-27 12:55 | PCM.PROG ---
Attending Provider: ATTENDING PROVIDER: Dr. JAYMIE ZEPEDA DATE OF SERVICE: 10/27/19 SUBJECTIVE: This 89 year old AA/BLACK F was hospitalized 10/22/19. The patient is hospitalized with hypertensive urgency. The patient's blood pressure has been brought under control with multiple medications. 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 and Losartan. She had symptomatic anemia for which she was given 2 units of PRBCs, hemoglobin 10 with hematocrit 33. No evidence of active GI bleed. REVIEW OF SYSTEMS: CONSTITUTIONAL: No night sweats. No fatigue, malaise, lethargy. No fever or chills. HEENT: Eyes: No visual changes. No eye pain. No eye discharge. ENT: No runny nose. No epistaxis. No sinus pain. No odynophagia. No congestion. RESPIRATORY: No cough, no congestion. No hemoptysis. No shortness of breath. CARDIOVASCULAR: No angina symptoms. No CHF symptoms. No atypical chest pain for CAD. No palpitations. No orthopnea.. GASTROINTESTINAL: No abdominal pain. No nausea or vomiting. No diarrhea or constipation. No hematemesis. No hematochezia. GENITOURINARY: No urgency. No frequency. No dysuria. No hematuria. No obstructive symptoms. No discharge. No pain. No significant abnormal bleeding. MUSCULOSKELETAL: No musculoskeletal pain; no joint swelling. NEUROLOGICAL: Awake, alert, oriented to time, place and person. No headache. No neck pain. No syncope. No seizures. No dizziness. PSYCHIATRIC: Not anxious. No depression. No suicidal thoughts. No homicidal thoughts. SKIN: No rash. No lesions. No wounds. ENDOCRINE: No unexplained weight loss. No weight gain. HEMATOLOGIC/LYMPHATIC: No anemia. No purpura. No petechiae. No prolonged or excessive bleeding. No palpable lymph nodes. PHYSICAL EXAMINATION: GENERAL: The patient is awake, alert and oriented, lying/sitting in bed in no distress. VITAL SIGNS: Temperature 97.1 F, Pulse 58, Respiratory Rate 18, BP 116/63, Pulse Ox 83% HEENT: Head normocephalic, atraumatic. Eyes: Extraocular muscles are intact. Pupils are equal, round and reactive to light and accommodation. Ears: No lesions. Nose appeared normal. Throat: No exudate or erythema. NECK: Supple. No JVD, no carotid bruit. No lymphadenopathy or thyromegaly. LUNGS: Decreased breath sounds. Clear to auscultation. Percussion note normal. Chest symmetrical. HEART: S1, S2, no S3. Grade I to II/ systolic murmur. No cyanosis or clubbing. No ascites. Pulses: Dorsalis pedis and posterior tibial pulses +1 to +2 both sides. ABDOMEN: Soft. Non-tender. Bowel sounds active. No CVA tenderness. No mass felt. EXTREMITIES: No edema. Full range of motion of all extremities, equal. NEUROLOGIC: No focal deficit. Cranial nerves II through XII are grossly intact. No headache, no double vision or headache. SKIN: Warm and dry. Intact. Turgor-normal. LYMPHATIC: No palpable lymph nodes/no lymphedema. MUSCULOSKELETAL: Normal joints with no swelling. Muscle tone is normal. LAB REVIEW: 10/27/19 05:25 10/27/19 05:25 10/27/19 05:25: Sodium 136.9, Potassium 3.87, Chloride 100.9, Carbon Dioxide 30.2 H, Anion Gap 9.67, BUN 22.6 H, Creatinine 1.22, Estimated GFR (MDRD) 50.00, BUN/Creatinine Ratio 18.52, Glucose 109.3 H, Calcium 8.90, Total Bilirubin 0.91, AST 28.2, ALT 10.2, Alkaline Phosphatase 61.5, Total Protein 6.43, Albumin 3.53, Globulin 2.90, Albumin/Globulin Ratio 1.21 10/27/19 05:25: WBC 5.57, RBC 4.03 L, Hgb 10.1 L, Hct 33.2 L, MCV 82.4, MCH 25.1 L, MCHC 30.4 L, RDW Coeff of Feliberto 17.5 H, Plt Count 203, Immature Gran % (Auto) 0.4, Neut % (Auto) 61.6, Lymph % (Auto) 24.4, [place] % (Auto) 9.3, Eos % (Auto) 3.6, Baso % (Auto) 0.7, Neut # (Auto) 3.4, Lymph # (Auto) 1.4, [place] # (Auto) 0.5, Eos # (Auto) 0.2, Baso # (Auto) 0.0, Immature Gran # (Auto) 0.0 10/26/19 20:45: Hct 33.9 L D 10/26/19 20:45: Hgb 10.1 L 10/26/19 10:22: Blood Type A POSITIVE, Antibody Screen Negative, Crossmatch (AHG) See Detail ASSESSMENT: Please see below. 1. Hypertensive urgency resolved. 2. Hypoxemia noted intermittently with no obvious reason. She will qualify for oxygen. 3. Left ventricular failure from hyptrophic cardiomyopathy, under control with normalization of blood pressure and restarting Labetalol, which had been discontinued at one of the [facility]. 4. Anemia, corrected with 2 units of PRBCs given, with no evidence of GI bleed. The patient wishes to have EGD and colonoscopy; will refer her to a GI specialist. PLAN: 1. CT scan of abdomen if not done without contrast for anemia and abdominal discomfort. 2. Anticipate discharge tomorrow around 2 p.m. Her son will pick her up. 3. D/C telemetry. 4. The patient is up and about, oriented times three, able to do practically all activities of daily living. Plan and coordination of the patient's care discussed in the presence of Physical Therapy Aide and nurse. CONDITION: Stable SCRIBED BY: KAVON CRISTINA, Finished Hardware Erector scribed while in presence of service performed by Dr. JAYMIE ZEPEDA on 10/27/19 ([id number])
--- NOTE | 2019-10-27 13:45 | CT ---
EXAM: CT ABDOMEN AND PELVIS HISTORY: Anemia, abdominal discomfort TECHNIQUE: CT abdomen and pelvis without intravenous contrast. Images were reconstructed using 5 mm section thickness. Reformations were prepared. COMPARISON: 09/23/2017 CT pelvis FINDINGS: Diagnostic limitations exist without including intravenous contrast enhanced images. Liver and splee n are grossly within normal limits. Numerous tiny gallstones are seen. There is no gallbladder dist ension or evidence of gallbladder inflammation. Pancreas and adrenal glands are within normal limits . There is no hydronephrosis or nephrolithiasis. Moderately severe atherosclerotic disease. Stomach is mildly distended with fluid, food product and air. The appendix is seen and appears andrea l. There is no evidence of bowel obstruction. Mild to moderate diffuse colonic diverticulosis. Uri nary bladder is intact. No uterus is seen. There is no ascites. Abdominal wall is intact. The bones are demineralized. There is diffuse degenerative disc and facet disease and ankylosis of the lower thoracic spine. Previous total left hip arthroplasty. Cardiomeg jacklyn is noted. There is a small pericardial effusion. No pneumoperitoneum. IMPRESSION: 1. Distended stomach, nonspecific although consider gastritis, gastroparesis or ileus. Diffuse mild to moderate colonic diverticulosis without evidence of diverticulitis. Normal appendix. Normal bow el gas pattern. No ascites. 2. Numerous tiny gallstones without evidence of gallbladder inflammation or distension. 3. Atherosclerotic disease. 4. Cardiomegaly and a small pericardial effusion.
[2019-10-27] MEDS: NORVASC PO SCH (20:33)
[2019-10-28 05:22] LABS: HEMATOCRIT 33.9 % (37.0-47.0)
[2019-10-28] MEDS: PROTONIX PO SCH (06:30)
[2019-10-28] MEDS ORDERED: LASIX TAB PO SCH (08:30)
[2019-10-28] MEDS ORDERED: MICRO-K CAP PO SCH (08:30)
[2019-10-28] MEDS: LIPITOR PO SCH (08:42)
[2019-10-28] MEDS: TRANDATE PO SCH (08:42)
[2019-10-28] MEDS: COZAAR PO SCH (08:43)
[2019-10-28] MEDS: LOVENOX SUBCUT SCH (08:45)
--- NOTE | 2019-10-28 09:26 | PCM.PROG ---
Attending Provider: ATTENDING PROVIDER: Dr. JAYMIE GRANGER This patient is seen with Reina Stubbs, Nurse Practitioner. DATE OF SERVICE: 10/28/19 SUBJECTIVE: This 89 year old AA/BLACK F was hospitalized 10/22/19. The patient has been up and about on her own. Blood pressure has been well controlled. She failure three step oxygen test yesterday. Her saturation is 94% at resting this morning. Hgb has been stable after transfusion. REVIEW OF SYSTEMS: CONSTITUTIONAL: No night sweats. No fatigue, malaise, lethargy. No fever or chills. Weakness. HEENT: Eyes: No visual changes. No eye pain. No eye discharge. ENT: No runny nose. No epistaxis. No sinus pain. No odynophagia. No congestion. RESPIRATORY: No cough, no congestion. No hemoptysis. No shortness of breath. CARDIOVASCULAR: No angina symptoms. No CHF symptoms. No atypical chest pain for CAD. No palpitations. No orthopnea.. GASTROINTESTINAL: No abdominal pain. No nausea or vomiting. No diarrhea or constipation. No hematemesis. No hematochezia. GENITOURINARY: No urgency. No frequency. No dysuria. No hematuria. No obst ructive symptoms. No discharge. No pain. No significant abnormal bleeding. MUSCULOSKELETAL: No musculoskeletal pain; no joint swelling. NEUROLOGICAL: Awake, alert, oriented to time, place and person. No headache. No neck pain. No syncope. No seizures. No dizziness. PSYCHIATRIC: Not anxious. No depression. No suicidal thoughts. No homicidal thoughts. SKIN: No rash. No lesions. No wounds. ENDOCRINE: No unexplained weight loss. No weight gain. HEMATOLOGIC/LYMPHATIC: No anemia. No purpura. No petechiae. No prolonged or excessive bleeding. No palpable lymph nodes. PHYSICAL EXAMINATION: GENERAL: The patient is awake, alert and oriented, lying in bed in no distress. VITAL SIGNS: Temperature 98.3 F, Pulse 53, Respiratory Rate 18, BP 146/68, Pulse Ox 94% HEENT: Head normocephalic, atraumatic. Eyes: Extraocular muscles are intact. Pupils are equal, round and reactive to light and accommodation. Ears: No lesions. Nose appeared normal. Throat: No exudate or erythema. NECK: Supple. No JVD, no carotid bruit. No lymphadenopathy or thyromegaly. LUNGS: Diminished breath sounds. Clear to auscultation. Percussion note normal. Chest symmetrical. HEART: S1, S2, no S3. No murmurs. No cyanosis or clubbing. No ascites. Pulses: Dorsalis pedis and posterior tibial pulses +1 to +2 both sides. ABDOMEN: Soft. Non-tender. Bowel sounds active. No CVA tenderness. No mass felt. EXTREMITIES: No edema. Full range of motion of all extremities, equal. NEUROLOGIC: No focal deficit. Cranial nerves II through XII are grossly intact. No headache, no double vision or headache. SKIN: Not dry. Intact. Turgor-normal. LYMPHATIC: No palpable lymph nodes/no lymphedema. MUSCULOSKELETAL: Normal joints with no swelling. Muscle tone is normal. LAB REVIEW: 10/28/19 05:10 10/28/19 05:10 10/28/19 05:10: Sodium 136.4, Potassium 3.84, Chloride 101.6, Carbon Dioxide 31.4 H, Anion Gap 7.24, BUN 25.6 H, Creatinine 1.04, Estimated GFR (MDRD) 60.00, BUN/Creatinine Ratio 24.61, Glucose 102.3, Calcium 8.93, Total Bilirubin 0.74, AST 35.7, ALT 10.7, Alkaline Phosphatase 60.0, Total Protein 6.37, Albumin 3.51, Globulin 2.86, Albumin/Globulin Ratio 1.22 10/28/19 05:10: WBC 5.79, RBC 4.09 L, Hgb 10.1 L, Hct 33.9 L, MCV 82.9, MCH 24.7 L, MCHC 29.8 L, RDW Coeff of Feliberto 18.2 H, Plt Count 208, Immature Gran % (Auto) 0.3, Neut % (Auto) 62.7, Lymph % (Auto) 23.1, [place] % (Auto) 8.8, Eos % (Auto) 4.1, Baso % (Auto) 1.0, Neut # (Auto) 3.6, Lymph # (Auto) 1.3, [place] # (Auto) 0.5, Eos # (Auto) 0.2, Baso # (Auto) 0.1, Immature Gran # (Auto) 0.0 ASSESSMENT: Please see below. 1. Hypertension, controlled 2. Anemia, improved 3. COPD now qualifies for O2 4. GERD PLAN: 1. Discontinue hydrochlorothiazide 2. Start Lasix 20mg daily along with Potassium 10meq daily 3. Discharge home 4. Followup in the office new week 5. She is scheduled as outpatient with Dr. Early Plan and coordination of the patient's care discussed in the presence of Principal Military Analyst and nurse. SCRIBED BY: Marie MARESist scribed while in presence of service performed by Dr. Granger/Reina Stubbs APRN on 10/28/19 ([id number])
[2019-10-28 09:33] VITALS: BP 145/70; TEMP 98.7
--- NOTE | 2019-10-28 11:55 | CM.DICTOOL ---
ADMISSION: 10/22/19 19:39 DISCHARGE: October DATE OF SERVICE: 10/28/19 FINAL DIAGNOSIS HYPERTENSION - CONTROLLED ANEMIA- IMPROVED COPD- NOW QUALIFIES FOR O2 GERD VASCULAR CONGESTION- IMPROVED LVH WITH ENLARGED LAC- PER 10/26/2019 ECHO HX: GI BLEED- 10/2019 CVA, CEREBELLAR AND PONTINE HYPERTENSION DIABETES MELLITUS, TYPE 2 - DIET CONTROLLED GERD ANEMIA DYSLIPIDEMIA DIVERTICULOSIS- 10/27/2019 CT SURGICAL PROCEDURES: CATARACT EXTRACTIONS, BILATERAL HYSTERECTOMY RT ROTATOR CUFF REPAIR LEFT HIP REPAIR LAST VITALS Temp Pulse Resp BP Pulse Ox 98.7 F 56 L 18 145/70 H 97 10/28/19 09:32 10/28/19 09:32 10/28/19 09:32 10/28/19 09:32 10/28/19 09:32 TAKE THESE MEDICATIONS AT HOME Amlodipine Besylate (Norvasc) 5 mg PO BEDTIME [facility] -- ( NEW ) Last Admin: 10/27/19 20:33 Dose: 5 mg Documented by: Atorvastatin Calcium (Lipitor) 40 mg PO DAILY [facility] Last Admin: 10/28/19 08:42 Dose: 40 mg Documented by: Furosemide (Lasix Tab) 20 mg PO QDAC [facility] -- ( NEW ) Last Admin: 10/28/19 08:43 Dose: 20 mg Documented by: Labetalol HCl (Trandate) 100 mg PO BID [facility] -- ( NEW ) Last Admin: 10/28/19 08:42 Dose: 100 mg Documented by: Losartan Potassium (Cozaar) 100 mg PO DAILY [facility] -- ( CHANGED ) Last Admin: 10/28/19 08:43 Dose: 100 mg Documented by: Pantoprazole Sodium (Protonix) 40 mg PO QDAC [facility] Last Admin: 10/28/19 06:30 Dose: 40 mg Documented by: Potassium Chloride (Micro-K Cap) 10 meq PO DAILYWM [facility] -- ( NEW ) Last Admin: 10/28/19 08:43 Dose: 10 meq Documented by: ALLERGIES No Known Allergies Allergy (Verified 04/26/18 10:26) DISCONTINUED MEDICATIONS Metoprolol Succinate (Toprol Xl) 25 MG NEW PRESCRIPTIONS: Amlodipine Besylate (Norvasc) 5 mg PO BEDTIME [facility] -- ( NEW ) Furosemide (Lasix Tab) 20 mg PO QDAC [facility] -- ( NEW ) Labetalol HCl (Trandate) 100 mg PO BID [facility] -- ( NEW ) Losartan Potassium (Cozaar) 100 mg PO DAILY [facility] -- ( NEW) Potassium Chloride (Micro-K Cap) 10 meq PO DAILYWM [facility] -- ( NEW ) SMOKING: NON- APPLICABLE DISEASE SPECIFIC EDUCATION: CONSISTENT CARBOHYDRATE DIET NO NUTS,NO SEEDS DIET COPD HTN ANEMIA GERD DIVERTICULOSIS COVID LAB REVIEW: 10/28/19 05:10 10/28/19 05:10 10/28/19 05:10: Sodium 136.4, Potassium 3.84, Chloride 101.6, Carbon Dioxide 31.4 H, Anion Gap 7.24, BUN 25.6 H, Creatinine 1.04, Estimated GFR (MDRD) 60.00, BUN/Creatinine Ratio 24.61, Glucose 102.3, Calcium 8.93, Total Bilirubin 0.74, AST 35.7, ALT 10.7, Alkaline Phosphatase 60.0, Total Protein 6.37, Albumin 3.51, Globulin 2.86, Albumin/Globulin Ratio 1.22 10/28/19 05:10: WBC 5.79, RBC 4.09 L, Hgb 10.1 L, Hct 33.9 L, MCV 82.9, MCH 24.7 L, MCHC 29.8 L, RDW Coeff of Feliberto 18.2 H, Plt Count 208, Immature Gran % (Auto) 0.3, Neut % (Auto) 62.7, Lymph % (Auto) 23.1, [place] % (Auto) 8.8, Eos % (Auto) 4.1, Baso % (Auto) 1.0, Neut # (Auto) 3.6, Lymph # (Auto) 1.3, [place] # (Auto) 0.5, Eos # (Auto) 0.2, Baso # (Auto) 0.1, Immature Gran # (Auto) 0.0 PLAN: DISCHARGE HOME TODAY, FRIDAY, OCTOBER 27 ADDUS HOMEMAKER 5 DAYS A WEEK, [facility] FOR HOME O2 ACTIVITY : UP TOLERATED, WALK FREQUENTLY IN HOME, STAY IN HOME FOR NOW EXCEPT MD VISITS, USE WALKER WHEN NEEDED. NO STRENOUS ACTIVITY FOLLOW [facility] INSTRUCTIONS DIET: CONSISTENT CARBOHYDRATE HEART HEALTHY LOW RESIDUAL, NO SEEDS, NO NUTS MD FOLLOW UP: SEE DR. ZEPEDA/WAYLON LOPEZ APRN/DAVID SIMONS APRN IN THE OFFICE , FRIDAY, NOVEMBER 03 @ [address] ECHAVARRIA TUESDAY, NOVEMBER 14 @ 300 PM, INFO FAXED, DISC OF CT SENT WITH CODE STATUS: FULL CODE MRS GRAYSON IS ALERT AND ORIENTED X 4. NO DISTRESS. NO COMPLAINTS OF SOA , THOUGH HER OXYGEN SATURATIONS HAVE BEEN UNDER 90% AT REST. SENDING HOME ON OXYGEN FROM [facility]. SHE DOES REPORT BEING TIRED ALOT AT HOME. SHE GETS UP ON HER OWN, INDEPENDENTLY AT HOME THOUGH HAS HAD SOME WEAKNESS. [facility] HAS BEEN SEEING HER AND PLAN TO RESUME SN AND PT. 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 NUTRITIONAL AND FLUID INTAKE IS FAIR TO GOOD. CONTINENT OF BOWEL AND BLADDER. LAST BM 10/26/2019. VERBALIZES DESIRE TO LIVE IN HER HOME, HAS A GRANDSON THAT STAYS WITH HER. FOLLOW UP WITH DR ECHAVARRIA, TECHNICAL ASSISTANCE CONSULTANT, NOVEMBER 15, 2019 @ 3 PM DUE TO RECENT ABDOMINAL DISCOMFORT AND MRS GRAYSONS CONCERNS AND WANTING A COLONOSCOPY. MD WAYLON ALMENDAREZ APRN ALYCE HANNAN, APRN
--- NOTE | 2019-10-29 07:34 | HOLTER ---
PATIENT INFORMATION AND COMMENTS Attending Physician: DR. JAYMIE ZEPEDA Indications: SOB, VENTRICULAR TACHYCARDIA __ Patient Medications: LIPITOR, LOVENOX, HCTZ, TRANDATE, COZAAR, PROTONIX __ Pre-procedure Summary: Protocol: Standard Heart Rate Started: 10/25/2019 Minimum: 43 BPM Weight: 165 LBS Ended: 10/26/2019 Maximum: 156 BPM Height: 62" Duration: 24 HRS Average: 58 BPM _ INTERPRETATIONS/OBSERVATIONS: 1. BASIC RHYTHM: SINUS, RATE 43 BPM TO 156 BPM, AVERAGE 60 BPM 2. INFREQUENT PVC'S AND PAC'S (TOTAL OF 2 TO 3% OF BEATS SCANNED 3. ONE RUN OF SUPRAVENTRICULAR TACHYCARDIA WITH RATE 155 BPM OF [address]-T WAVE CHANGES FROM BASELINE 5. ACTIVITY LOG NOT AVAILABLE MTDD
--- NOTE | 2019-10-29 13:49 | PN ---
DATE OF SERVICE: 10/28/19 SUBJECTIVE: The patient was seen and examined with the nurse practitioner. The patient's condition is stable. She is up and about. No CHF symptoms. She is feeling a lot better. Oxygen saturation drops during the daytime at times. Will be on home oxygen. Condition stable. TIME SPENT: More than 30 minutes. Plan and coordination of the patient's care discussed in the presence of nurse. PABLITO
--- NOTE | 2019-10-29 13:51 | PN ---
BILLING 10/22/19 ADMISSION DAY LEVEL 5 10/23/19 INTERMEDIATE 10/24/19 INTERMEDIATE 10/25/19 INTERMEDIATE 10/26/19 INTERMEDIATE 10/27/19 INTERMEDIATE 10/28/19 DISCHARGE The patient had one day that she was seen for an extended period of time and that would be extensive. PABLITO
--- NOTE | 2019-11-03 10:44 | DS ---
DATE OF SERVICE: 10/28/19 FINAL DIAGNOSIS: 1. HYPERTENSION - CONTROLLED 2. ANEMIA- IMPROVED 3. COPD- NOW QUALIFIES FOR O2 4. GERD 5. VASCULAR CONGESTION- IMPROVED 6. LVH WITH ENLARGED LAC- PER 10/26/2019 ECHO HX: 7. GI BLEED- 10/2019 8. CVA, CEREBELLAR AND PONTINE 9. HYPERTENSION 10. DIABETES MELLITUS, TYPE 2 - DIET CONTROLLED 11. GERD 12. ANEMIA 13. DYSLIPIDEMIA 14. DIVERTICULOSIS- 10/27/2019 CT SURGICAL PROCEDURES: 15. CATARACT EXTRACTIONS, BILATERAL 16. HYSTERECTOMY 17. RT ROTATOR CUFF REPAIR 18. LEFT HIP REPAIR LAST VITALS Temp Pulse Resp BP Pulse Ox 98.7 F 56 L 18 145/70 H 97 10/28/19 09:32 10/28/19 09:32 10/28/19 09:32 10/28/19 09:32 10/28/19 09:32 DISCHARGE INSTRUCTIONS: 1. DISCHARGE HOME TODAY, FRIDAY, October 2. ADDUS HOMEMAKER 5 DAYS A WEEK, [facility] FOR HOME O2 MD FOLLOW UP: SEE DR. ZEPEDA/WAYLON LOPEZ APRN/DAVID SIMONS APRN IN THE OFFICE, FRIDAY, November @ [address] ECHAVARRIA TUESDAY, NOVEMBER 14 @ 300 PM, INFO FAXED, DISC OF CT SENT WITH MEDICATIONS AT DISCHARGE: Amlodipine Besylate (Norvasc) 5 mg PO BEDTIME [facility] -- ( NEW ) Last Admin: 10/27/19 20:33 Dose: 5 mg Documented by: Atorvastatin Calcium (Lipitor) 40 mg PO DAILY [facility] Last Admin: 10/28/19 08:42 Dose: 40 mg Documented by: Furosemide (Lasix Tab) 20 mg PO QDAC [facility] -- ( NEW ) Last Admin: 10/28/19 08:43 Dose: 20 mg Documented by: Labetalol HCl (Trandate) 100 mg PO BID [facility] -- ( NEW ) Last Admin: 10/28/19 08:42 Dose: 100 mg Documented by: Losartan Potassium (Cozaar) 100 mg PO DAILY [facility] -- ( CHANGED ) Last Admin: 10/28/19 08:43 Dose: 100 mg Documented by: Pantoprazole Sodium (Protonix) 40 mg PO QDAC [facility] Last Admin: 10/28/19 06:30 Dose: 40 mg Documented by: Potassium Chloride (Micro-K Cap) 10 meq PO DAILYWM [facility] -- ( NEW ) Last Admin: 10/28/19 08:43 Dose: 10 meq Documented by: NEW PRESCRIPTIONS: Amlodipine Besylate (Norvasc) 5 mg PO BEDTIME [facility] -- (NEW) Furosemide (Lasix Tab) 20 mg PO QDAC [facility] -- (NEW) Labetalol HCl (Trandate) 100 mg PO BID [facility] -- (NEW) Losartan Potassium (Cozaar) 100 mg PO DAILY [facility] -- (NEW) Potassium Chloride (Micro-K Cap) 10 meq PO DAILYWM [facility] -- (NEW) DISCONTINUED MEDICATIONS: Metoprolol Succinate (Toprol Xl) 25 MG DIET INSTRUCTIONS: CONSISTENT CARBOHYDRATE; HEART HEALTHY; LOW RESIDUAL; NO SEEDS, NO NUTS ACTIVITY: UP TOLERATED, WALK FREQUENTLY IN HOME, STAY IN HOME FOR NOW EXCEPT MD VISITS, USE WALKER WHEN NEEDED. NO STRENUOUS ACTIVITY FOLLOW [facility] INSTRUCTIONS. SMOKING: NON-APPLICABLE DISEASE SPECIFIC EDUCATION: CONSISTENT CARBOHYDRATE DIET NO NUTS,NO SEEDS DIET COPD HTN ANEMIA GERD DIVERTICULOSIS COVID HOSPITAL COURSE: This is an 89-year-old -[place] female who came to the emergency room with elevated blood pressure at home. She had no nausea, vomiting or headache. She had a few weeks ago been hospitalized at [facility] for what they thought was a small GI bleed and much of her hypertensive medications have been changed. She had been taken off Clonidine, Aspirin, Labetalol and Norvasc. On admission and found in ER, her blood pressure was 210/100, no temperature, pulse ox 96%. She was also found to be slightly anemic. She does have a history of anemia. Hemoglobin was 8.9, hematocrit 30.2, white count 5.25. Sodium 139, potassium 4.16, BUN 15, creatinine 0.9, glucose 158. Urine was normal. After admission she was given Labetalol in the emergency room which did improve her blood pressure for a couple of hours then jumped up to 180/90. She then had to be given Procardia. Slowly we added back her previous medications that she had been on. Previously she had been on Labetalol 100 mg b.i.d. at home. [facility] had had her on Metoprolol 25 mg b.i.d. We discontinued Metoprolol and placed her back on Labetalol 100 b.i.d. We also started her on Losartan 100 and added Norvasc 5 to be given at bedtime. Over the course of a few days her blood pressure did begin to steady out and has been stable for about the past 36 to 48 hours. However, on the second or third day of admission, she did exhibit some hypoxemia. She was not visibly short of breath or gasping for air however her pulse ox is down into the 80s which required some oxygen. ABGs were slightly abnormal with 02 at nasal cannula at 2L she would go up to 93-94%. I do believe she did get a little fluid overloaded from the bolus probably that she was given initially. She was given IV Lasix. Chest x-ray did show some minimal vascular congestion. Her hemoglobin did continue to decrease. Again she has a history of chronic anemia. She does not like to take her iron. It got down to 8.1 and along with her shortness of breath, we did transfuse two units of packed red blood cells which she tolerated well. Again she did have a little bit of low saturation so she was given some Lasix in order to combat this. She is stable today. She is satting 94% on room air. We are going to send her home with Lasix 20 mg daily along with Potassium 10 mEq daily to be taken along with her regular regimen and then she will continue on her Labetalol 100 b.i.d. along with Losartan 100. I have discontinued the Hydrochlorothiazide. Hemoglobin is stable today at 10.1, has been like this for two days. Kidney functions stable 25 BUN, creatinine 1.04. We will discharge her to home. She does have Home Health that was previously coming in and she is going to continue. Three-step was performed and she does qualify for home oxygen so we will set that up for her as well and followup with her in the office next week. Medications have been reviewed. Also we did go ahead and do a CT scan of the abdomen due to the edema. It was a little confusing due to GI bleed on her hospitalization at [facility], [place]. It does not appear that they did a colonoscopy or an EGD. CT of the abdomen was normal, showed no reason for the anemia. Again, this has been chronic for her; however, we will set her up with an appointment for Dr. Echavarria as an outpatient. TIME SPENT: More than 60 minutes. PABLITO
== END 2019-10-28 14:09 | disposition other institution (70) | DRG 999 ==
LOC: ED 18:06 → MEDSURG B 19:39
PROVIDERS: ADMIT Internal Medicine; ATTEND Internal Medicine
DX: E11.9 Type 2 diabetes mellitus without complications; Z86.73 Personal history of transient ischemic attack (TIA), and cerebral infarction without residual deficits; D64.9 Anemia, unspecified; I51.7 Cardiomegaly; Z51.81 Encounter for therapeutic drug level monitoring; R09.89 Other specified symptoms and signs involving the circulatory and respiratory systems; R06.02 Shortness of breath; I10 Essential (primary) hypertension; R53.1 Weakness; K57.90 Diverticulosis of intestine, part unspecified, without perforation or abscess without bleeding; R09.02 Hypoxemia; J44.9 Chronic obstructive pulmonary disease, unspecified; E78.5 Hyperlipidemia, unspecified; Z87.19 Personal history of other diseases of the digestive system; K21.9 Gastro-esophageal reflux disease without esophagitis; Z79.899 Other long term (current) drug therapy; I16.0 Hypertensive urgency; R53.83 Other fatigue